=== PATIENT | male | born 1960 | race Caucasian/White ===

== ENCOUNTER → 2016-09-20 | Outpatient (CLI) | payer OTHER ==
--- NOTE | 2016-09-20 09:19 | REP ---
MAXILLOFACIAL CT WITHOUT CONTRAST: HISTORY: Chronic maxillary sinusitis. Minimal mucosal thickening is present in the maxillary, left ethmoid and left sphenoid sinuses. Mild mucosal thickening is present in the right ethmoid sinus. The remaining sinuses are clear. Mucosal thickening involves the ostiomeatal units. The middle and inferior nasal turbinates are partially paradoxical. The right middle nasal turbinate is hypoplastic. There is mild deviation of the nasal septum to the right anteriorly and minimal deviation posteriorly. A spur is present arising from the left side of the nasal septum. The cribriform plate, medial estrada of the orbits and optic canals are intact. There is thickening of the estrada of the sphenoid sinus consistent with chronic sinusitis. The carotid canals form a segment of the posterolateral estrada of the sphenoid sinus. The sphenoid sinus septum inserts into the left internal carotid canal wall. A punctate calcification is present in the right globe adjacent to the right optic nerve. This represents drusen. IMPRESSION: Sinus mucosal thickening as described above. Signed by David Sheikh MD 09/20/2016 09:33 A
== END ==
LOC: M RAD 07:57
PROVIDERS: ATTEND Otolaryngology
DX: J32.0 Chronic maxillary sinusitis (principal)

== ENCOUNTER → 2016-12-11 | Outpatient (REF) | payer OTHER ==
[2016-12-11 12:17] LABS: BASO # 0.1 K/mm3 (0.0-0.2); BASO % 0.6 % (0.0-1.0); EOS # 0.1 K/mm3 (0.0-0.50); EOS % 0.8 % (0.0-3.0); LARGE UNSTAINED CELL # 0.1 K/mm3 (0.0-0.4); LARGE UNSTAINED CELL % 0.7 % (0.0-4.0); LYMPH # 0.9 K/mm3 (1.5-4.5); LYMPH % 6.4 % (24.0-44.0); MEAN CORPUSCULAR HGB CONC 31.8 g/dl (32.0-36.5); MEAN CORPUSCULAR VOLUME 97.4 fl (80.0-96.0); MONO # 0.6 K/mm3 (0.0-0.8); MONO % 4.7 % (0.0-5.0); NEUTROPHILS # 11.2 K/mm3 (1.8-7.7); NEUTROPHILS % 86.8 % (36.0-66.0); PLATELET COUNT, AUTOMATED 345 k/mm3 (150-450); RED CELL DISTRIBUTION WIDTH 14.7 % (11.5-14.5); WHITE BLOOD COUNT 12.9 K/mm3 (4.0-10.0)
[2016-12-11 13:17] LABS: ERYTHROCYTE SEDIMENTATION RATE 3 mm/hr (0-20)
== END ==
LOC: M LABDRAW1 11:53
PROVIDERS: ATTEND Orthopaedic Surgery
DX: R22.32 Localized swelling, mass and lump, left upper limb (principal)

== ENCOUNTER → 2016-12-19 | Outpatient (REF) | payer OTHER | LOC: M SFHCPLAZ 15:23 | PROVIDERS: ATTEND Internal Medicine Infectious Disease | DX: M70.22 Olecranon bursitis, left elbow (principal) ==

== ENCOUNTER → 2016-12-28 | Outpatient (CLI) | payer OTHER ==
--- NOTE | 2016-12-28 12:25 | REP ---
Clinical: Reactive airway disease with acute exacerbation. Technique: PA and lateral. Comparison: 08/24/2015. Findings: Diffuse coarsened interstitial markings are consistent with chronic reactive airway disease and subtle superimposed atelectasis cannot be excluded. No discrete focal consolidation, effusion or pneumothorax. Linear scarring in the left mid lung zone noted. Skeletal structures intact. Mediastinum and cardiac silhouette normal. Impression: Coarsened markings consistent with chronic reactive airway disease. Cannot exclude trace atelectasis. Signed by Damaso Son MD 12/28/2016 12:17 P
== END ==
LOC: M SMT 11:27
PROVIDERS: ATTEND Internal Medicine Pulmonary Disease
DX: J45.51 Severe persistent asthma with (acute) exacerbation (principal)

== ENCOUNTER 2017-04-01 15:13 | Outpatient (RCR) | payer OTHER | END 2017-04-04 | LOC: M CR 15:13 | PROVIDERS: ATTEND Internal Medicine Cardiovascular Disease | DX: Z51.89 Encounter for other specified aftercare (principal); Z95.5 Presence of coronary angioplasty implant and graft; I25.10 Atherosclerotic heart disease of native coronary artery without angina pectoris ==

== ENCOUNTER 2017-04-05 08:46 | Outpatient (RCR) | payer OTHER | END 2017-05-04 | LOC: M CR 08:46 | PROVIDERS: ATTEND Internal Medicine Cardiovascular Disease | DX: Z51.89 Encounter for other specified aftercare (principal); Z95.5 Presence of coronary angioplasty implant and graft; I25.10 Atherosclerotic heart disease of native coronary artery without angina pectoris ==

== ENCOUNTER 2017-05-06 08:16 | Outpatient (RCR) | payer OTHER | END 2017-06-04 | LOC: M CR 08:16 | PROVIDERS: ATTEND Internal Medicine Cardiovascular Disease | DX: Z51.89 Encounter for other specified aftercare (principal); Z95.5 Presence of coronary angioplasty implant and graft; I25.10 Atherosclerotic heart disease of native coronary artery without angina pectoris ==

== ENCOUNTER → 2017-09-25 | Outpatient (REF) | payer OTHER | LOC: M LAB REF 17:01 | DX: J45.50 Severe persistent asthma, uncomplicated (principal) ==

== ENCOUNTER → 2017-10-19 | Outpatient (CLI) | payer OTHER ==
[2017-10-19 09:26] LABS: BLOOD UREA NITROGEN 21 MG/DL (7-18)
[2017-10-19 09:26] LABS: CREATININE FOR GFR 0.92 MG/DL (0.70-1.30); GLOMERULAR FILTRATION RATE > 60.0 (>56)
== END ==
LOC: M LAB 08:55
DX: Z51.81 Encounter for therapeutic drug level monitoring (principal); Z79.52 Long term (current) use of systemic steroids
CPT/HCPCS: 82565

== ENCOUNTER → 2017-12-13 | Outpatient (CLI) | payer OTHER | LOC: M RAD 07:00 | DX: J47.9 Bronchiectasis, uncomplicated (principal) ==

== ENCOUNTER → 2018-01-01 | Outpatient (CLI) | payer OTHER ==
[2018-01-02 14:53] LABS: TESTOSTERONE 635 NG/DL (241-827)
== END ==
LOC: M LAB 15:18
DX: E29.1 Testicular hypofunction (principal)
CPT/HCPCS: 84403

== ENCOUNTER → 2018-01-12 | Outpatient (REF) | payer OTHER | LOC: M LAB REF 09:20 | DX: J45.51 Severe persistent asthma with (acute) exacerbation (principal) ==

== ENCOUNTER → 2018-01-16 | Outpatient (CLI) | payer OTHER | LOC: M RAD 16:48 | DX: S22.000S Wedge compression fracture of unspecified thoracic vertebra, sequela (principal) ==

== ENCOUNTER → 2018-01-22 | Outpatient (CLI) | payer OTHER | LOC: M SMT 14:44 | DX: J45.51 Severe persistent asthma with (acute) exacerbation (principal) | CPT/HCPCS: 71046 ==

== ENCOUNTER → 2018-05-01 | Outpatient (REF) | payer OTHER | LOC: M LAB REF 13:16 | DX: J47.9 Bronchiectasis, uncomplicated (principal) ==

== ENCOUNTER → 2018-06-12 | Outpatient (CLI) | payer OTHER | LOC: M RAD 07:00 | DX: J32.0 Chronic maxillary sinusitis (principal) | CPT/HCPCS: 70486 ==

== ENCOUNTER → 2018-07-19 | Outpatient (REF) | payer OTHER | LOC: M LAB REF 07-16 13:31 | PROVIDERS: ATTEND Internal Medicine Pulmonary Disease | DX: J45.50 Severe persistent asthma, uncomplicated (principal); J47.9 Bronchiectasis, uncomplicated; R05 Cough ==

== ENCOUNTER → 2018-08-07 | Outpatient (REF) | payer OTHER | LOC: M LAB REF 17:42 | PROVIDERS: ATTEND Internal Medicine Pulmonary Disease | DX: R05 Cough (principal) ==

== ENCOUNTER → 2018-11-11 | Outpatient (REF) | payer OTHER | LOC: M LAB REF 17:29 | PROVIDERS: ATTEND Internal Medicine Pulmonary Disease | DX: J45.50 Severe persistent asthma, uncomplicated (principal); J47.9 Bronchiectasis, uncomplicated ==

== ENCOUNTER 2019-07-26 03:00 | Emergency (ER) | payer OTHER ==
[~2019-07-26] VITALS: Ht 185.4 cm; Wt 69.7 kg
[2019-07-26] MEDS ORDERED: SULF1TAB93 PO (03:56)
[2019-07-26] MEDS ORDERED: LEVAINH INH (03:56)
[2019-07-26] MEDS ORDERED: GLIP5TAB8 PO (03:56)
[2019-07-26] MEDS ORDERED: CIAL5TAB PO (03:56)
[2019-07-26] MEDS ORDERED: ATOR40TA75 PO (03:56)
[2019-07-26] MEDS ORDERED: METH4TAB8 PO (03:56)
[2019-07-26] MEDS ORDERED: SYMB16INH INH (03:56)
[2019-07-26] MEDS ORDERED: SING10TA32 PO (03:56)
[2019-07-26] MEDS ORDERED: ASMA220A INH (03:56)
[2019-07-26] MEDS ORDERED: SIMB1SUS OD (03:56)
[2019-07-26] MEDS ORDERED: METF10004 PO (03:56)
[2019-07-26] MEDS ORDERED: ONDANSETRON 4MG/2ML VIAL (J2405) IV ONE (04:15)
[2019-07-26] MEDS: MORPHINE 2 MG/ML 1ML VIAL (J2270) IV PRN ×2 (04:25→04:55)
--- NOTE | 2019-07-26 05:18 | REPVR ---
PROCEDURE INFORMATION: Exam: CT Chest Without Contrast Exam date and time: 07/26/2019 4:41 AM Age: 59 years old Clinical indication: Pain and injury or trauma; Fall; Initial encounter; Blunt trauma (contusions or hematomas); Chest pain and chest wall pain; Additional info: Left chest wall pain after fall TECHNIQUE: Imaging protocol: Computed tomography of the chest without contrast. 3D rendering: MIP and/or 3D reconstructed images were created by the technologist. Radiation optimization: All CT scans at this facility use at least one of these dose optimization techniques: automated exposure control; mA and/or kV adjustment per patient size (includes targeted exams where dose is matched to clinical indication); or iterative reconstruction. COMPARISON: CT Chest without contrast 12/13/2017 7:05 AM FINDINGS: Lungs: Mucoid impaction in the bilateral lung bases. Airspace consolidation in the left lower lobe concerning for pneumonia. Tree in bud opacities in the right lower lobe likely reflecting bronchiolitis. Mild bronchiectasis in the right lower lobe is also noted. Pleural space: Unremarkable. No pneumothorax. No pleural effusion. Heart: Coronary artery stent. Aorta: Mild atherosclerotic disease of the thoracic aorta. Lymph nodes: Unremarkable. No enlarged lymph nodes. Bones/joints: Subacute to chronic fracture deformities of several bilateral anterior ribs. Osteopenia. Stable compression deformity of T7. Soft tissues: Unremarkable. IMPRESSION: No acute fractures. Airspace consolidation in the left lower lobe concerning for pneumonia. Right lower lobe bronchiolitis. Electronically signed by: Man Marie On 07/26/2019 05:17:46 AM
[2019-07-26 06:15] VITALS: BP 137/83
[2019-07-26] MEDS ORDERED: CEFUROXIME 500 MG TAB PO ONE (06:15)
[2019-07-26] MEDS ORDERED: NORCO 5/325MG TABLET (BULK FOR ED) PO ONE (06:15)
[2019-07-26] MEDS ORDERED: CEFU50TA PO (06:23)
--- NOTE | 2019-07-27 08:25 | ECGEPIP ---
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
== END 2019-07-26 06:42 | disposition home or self-care (01) ==
LOC: M ED 03:00
DX: J18.9 Pneumonia, unspecified organism (principal); J21.9 Acute bronchiolitis, unspecified; Z79.84 Long term (current) use of oral hypoglycemic drugs; Z79.899 Other long term (current) drug therapy; Z88.8 Allergy status to other drugs, medicaments and biological substances
CPT/HCPCS: 71250; 93005; 96374; 96375; 99284; J2270; J2405

== ENCOUNTER → 2019-08-03 | Outpatient (CLI) | payer OTHER ==
[~2019-08-03] MED LIST: ASMA220A INH; ATOR40TA75 PO; CEFU50TA PO; CIAL5TAB PO; GLIP5TAB8 PO; LEVAINH INH; METF10004 PO; METH4TAB8 PO; SIMB1SUS OD; SING10TA32 PO; SULF1TAB93 PO; SYMB16INH INH
--- NOTE | 2019-08-03 14:59 | REP ---
Clinical: Asthma with acute exacerbation. Technique: PA and lateral. Comparison: 08/07/2018. Findings: Mediastinum and cardiac silhouette are normal. Bibasilar atelectasis and infiltrates compatible with pneumonia. Small associated pleural reactions cannot be excluded. No pneumothorax. Skeletal structures are intact. Impression: Bibasilar infiltrates compatible with pneumonia and atelectasis. Electronically Signed by Damaso Son MD 08/03/2019 02:50 P
== END ==
LOC: M RAD 14:34
PROVIDERS: ATTEND Physician Assistant
DX: J45.51 Severe persistent asthma with (acute) exacerbation (principal)

== ENCOUNTER → 2019-08-03 | Outpatient (REF) | payer OTHER | LOC: M LAB REF 15:41 | PROVIDERS: ATTEND Physician Assistant | DX: J45.51 Severe persistent asthma with (acute) exacerbation (principal) ==

== ENCOUNTER → 2019-08-18 | Outpatient (CLI) | payer OTHER ==
[~2019-08-18] MED LIST changes: +CEFD1CAP8 PO; +LEVA12INH INH; -SIMB1SUS OD; +SIMB1SUS OU; +TEST30SO3 TD
--- NOTE | 2019-08-18 08:57 | REP ---
Chest x-ray: Two views. History: Pneumonia. Comparison chest x-ray: August 03, 2019. Findings: There is a persistent infiltrate in the right lower lobe distribution consistent with pneumonia. A few increased markings remain in the left lower lobe although there is some improvement here. Remaining lung barba are clear. Heart is not enlarged. Impression: Persistent consolidation in the right lower lobe. Improvement on the left base. Electronically Signed by Crescencio Rucker MD 08/18/2019 01:06 P
== END ==
LOC: M RAD 08:24
PROVIDERS: ATTEND Physician Assistant
DX: J18.9 Pneumonia, unspecified organism (principal)

== ENCOUNTER 2019-08-19 15:53 | Inpatient (IN) | payer OTHER ==
[~2019-08-19] VITALS: Ht 188 cm; Wt 64.5 kg
[~2019-08-19 15:53] MED LIST changes: -CEFD1CAP8 PO; -LEVA12INH INH; -TEST30SO3 TD
[2019-08-19] MEDS ORDERED: CEFD1CAP8 PO (16:13)
[2019-08-19 16:43] LABS: BASO % 0.2 % (0.0-1.0); HEMATOCRIT 45.6 % (42.0-52.0); HEMOGLOBIN 14.4 g/dl (13.5-17.5); LYMPH # 0.7 10^3/uL (1.5-5.0); LYMPH % 7.3 % (24.0-44.0); MEAN CORPUSCULAR HEMOGLOBIN 30.1 pg (27.0-33.0); MEAN CORPUSCULAR HGB CONC 31.6 g/dl (32.0-36.5); MEAN CORPUSCULAR VOLUME 95.4 fl (80.0-96.0); MONO # 0.8 10^3/uL (0.0-0.8); MONO % 8.1 % (0.0-5.0); NEUTROPHILS # 8.5 10^3/uL (1.5-8.5); NEUTROPHILS % 83.7 % (36.0-66.0); PLATELET COUNT, AUTOMATED 335 10^3/uL (150-450); RED BLOOD COUNT 4.78 10^6/uL (4.30-6.10); WHITE BLOOD COUNT 10.2 10^3/uL (4.0-10.0)
[2019-08-19 17:19] LABS: ALBUMIN 2.8 GM/DL (3.2-5.2); ALT/SGPT 27 U/L (12-78); BILIRUBIN,DIRECT 0.3 MG/DL (0.0-0.2); BILIRUBIN,TOTAL 0.7 MG/DL (0.2-1.0); BLOOD UREA NITROGEN 22 MG/DL (7-18); CALCIUM LEVEL 8.6 MG/DL (8.8-10.2); CARBON DIOXIDE LEVEL 23 MEQ/L (21-32); CHLORIDE LEVEL 105 MEQ/L (98-107); CREATININE FOR GFR 0.94 MG/DL (0.70-1.30); GLOMERULAR FILTRATION RATE > 60.0 (>49); GLUCOSE, FASTING 204 MG/DL (70-100); POTASSIUM SERUM 4.7 MEQ/L (3.5-5.1); SODIUM LEVEL 137 MEQ/L (136-145); THYROXINE (T4) 7.5 UG/DL (4.5-12.0); TOTAL PROTEIN 6.1 GM/DL (6.4-8.2)
--- NOTE | 2019-08-19 18:26 | ECGEPIP ---
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
[2019-08-19] MEDS ORDERED: cefTRIAXone SOD 2 GM in D5W MINI-BAG PLUS 50 ML IV ONE (18:30)
--- NOTE | 2019-08-19 19:13 | REPVR ---
PROCEDURE INFORMATION: Exam: CT Chest Without Contrast Exam date and time: 08/19/2019 6:39 PM Age: 59 years old Clinical indication: Other: Pneu; Additional info: Pneumonia TECHNIQUE: Imaging protocol: Computed tomography of the chest without contrast. 3D rendering: MIP and/or 3D reconstructed images were created by the technologist. Radiation optimization: All CT scans at this facility use at least one of these dose optimization techniques: automated exposure control; mA and/or kV adjustment per patient size (includes targeted exams where dose is matched to clinical indication); or iterative reconstruction. COMPARISON: CT Chest without contrast 07/26/2019 4:39 AM FINDINGS: Lungs: Patchy bibasilar infiltrates as well as numerous foci of coarse parenchymal opacities demonstrated in the right middle lobe as well. Findings consistent with multifocal pneumonitis. Infiltrates associated with multiple foci of peripheral airway disease. Infiltrate in the left lower lobe has improved in comparison to the prior study, whereas the infiltrates in the right lower lobe have progressed, and the infiltrates in the right middle lobe are new. Well inflated lungs consistent with COPD. Pleural space: Pleural thickening left lung base. Heart: There is mild atherosclerotic calcification of the coronary arteries. Small pericardial effusion. Aorta: The aorta demonstrates mild atherosclerotic calcification. There is fusiform dilatation of the ascending thoracic aorta which measures 3.9 cm. maximally. There is no saccular component. Lymph nodes: Unremarkable. No enlarged lymph nodes. Bones/joints: Unremarkable. Multiple rib fractures involving the 3rd through 7th ribs on the left with minimal callus formation suggesting subacute fractures. Soft tissues: Unremarkable. IMPRESSION: 1. Patchy bibasilar and right middle lobe infiltrates. Findings consistent with multifocal pneumonitis. Infiltrate in the left lower lobe has improved in comparison to the prior study, whereas infiltrates in the right lower lobe have progressed, and the infiltrates in the right middle lobe are new. 2. There is fusiform dilatation of the ascending thoracic aorta which measures 3.9 cm. maximally. There is no saccular component. 3. Well inflated lungs consistent with COPD. COPD. 4. Subacute fractures involving the 3rd through 7th ribs on the left. Electronically signed by: Gregory Marte On 08/19/2019 19:12:49 PM
[2019-08-19] MEDS ORDERED: TEST30SO3 TD (19:24)
[2019-08-19] MEDS ORDERED: LEVA12INH INH (19:24)
[2019-08-19] MEDS ORDERED: GLUCOSE 4 GM CHEW TABLET PO PRN (20:00)
[2019-08-19] MEDS ORDERED: DEXTROSE 50% 50 ML SYRINGE IV PRN (20:00)
[2019-08-19] MEDS: SYMBICORT 160/4.5MCG INHALER 6GM INH SCH (20:00)
[2019-08-19] MEDS ORDERED: GLUCAGON FOR INJ 1 MG VIAL (J1610) SC PRN (20:00)
[2019-08-19] MEDS: AZITHROMYCIN INJ 500 MG, VIAL MATE ADAPTER 1 EACH in D5W 250 ML IV SCH (20:38)
[2019-08-19] MEDS: NS 1,000 ML IV SCH (20:38)
[2019-08-19] MEDS: LEVALBUTEROL 1.25 MG/0.5 ML CONCENTRATE NEB INH SCH (20:54)
[2019-08-19] MEDS: HumaLOG INSULIN (NovoLOG) PER UNIT SC SCH (21:00)
[2019-08-19 21:10] VITALS: BP 132/76
--- NOTE | 2019-08-19 22:03 | HPEPDOC ---
General Date of Admission Aug 19, 2019 at 19:59 Date of Service: Aug 19, 2019 Chief Complaint The patient is a 59-year-old male Who presented to the emergency room after being advised by his movable bulkhead installer that he would require IV antibiotics History of Present Illness Patient is a 59-year-old male with a PMHx of Asthma, NIDDM2, DLP, Glaucoma who presented to ER at the direction of his movable bulkhead installer for IV antibiotics. Patient had reported that he had fallen on July 26 and presented to the emergency room for further evaluation. At that time he was found to have a left sided pneumonia and was given antibiotics to complete as an outpatient. Subsequent imaging had revealed right-sided pneumonia and patient was given a second course of antibiotics. Sputum culture on 08/03 had revealed the growth of Haemophilus influenza. Patient continue to follow-up with his movable bulkhead installer, Dr. Bolivar and Josue Lucio. Patient received subsequent imaging on 08/18; that showed the persistence of pneumonia. At this point patient was advised to come to the emergency room for IV antibiotic therapy. Patient presented to the emergency room the next evening. Imaging completed in the emergency room via CT chest had revealed improvement of left lower lobe infiltrates progression of right lower lobe infiltrates and new right middle lobe infiltrates. . Hospitalist service was called for further evaluation and treatment. Currently, patient reports he does experience short of breath with exertion. He notes that he does express a mild productive cough with light green sputum; this is been relatively unchanged since July 26. Patient denies any fevers or chills over the last 2 weeks. Patient denies any chest pain or palpitations. Patient denies nausea, vomiting, abdominal pain has reported some constipation/diarrhea alternating, but has reported the use of probiotics to help alleviate the symptoms. Patient denies any discomfort with urination. Patient has reported poor appetite and loss of approximately 6 pounds over the last 3 weeks. Home Medications Scheduled Atorvastatin Calcium (Atorvastatin Calcium) 40 Mg Tablet, 40 MG PO QHS, (Reported) Brinzolamide/Brimonidine Tart (Simbrinza 1%-0.2% Eye Drops) 8 Ml Drops.susp, 1 DROP OU BID, (Reported) Budesonide/Formoterol (Symbicort 160-4.5 Mcg Inhaler) 6 Gm Hfa.aer.ad, 2 PUFF INH BID, (Reported) Cefdinir (Cefdinir) 300 Mg Capsule, 300 MG PO BID, (Reported) FOR 14 DAYS, STARTED 08/18/19 Glipizide (Glipizide) 5 Mg Tablet, 10 MG PO QAM, (Reported) Glipizide (Glipizide) 5 Mg Tablet, 5 MG PO DAILY, (Reported) TAKES AT LUNCHTIME Levalbuterol Hydrochloride (Xopenex Concentrate) 1.25 Mg/0.5 Ml Vial.neb, 1.25 MG INH QID, (Reported) Metformin HCl (Metformin HCl) 1,000 Mg Tablet, 1,000 MG PO BID, (Reported) Methylprednisolone (Methylprednisolone) 4 Mg Tablet, 12 MG PO DAILY, (Reported) Mometasone Furoate (Asmanex) 220 Mcg Aer.pow.ba, 2 PUFF INH BID, (Reported) Montelukast Sodium (Singulair) 10 Mg Tablet, 10 MG PO QHS, (Reported) Sulfamethoxazole/Trimethoprim (Sulfamethoxazole-Tmp Ds Tablet) 1 Each Tablet, 1 TAB PO 3XW, (Reported) MON/WED/FRI Tadalafil (Cialis) 5 Mg Tablet, 5 MG PO QHS, (Reported) Testosterone (Testosterone) 30 Mg/1.5 Ml Melody.md.fruit and vegetable packer, 2 PUMP TD ASDIRECTED, (Reported) APPLY 2 PUMPS TO EACH ARMPIT Allergies Coded Allergies: liraglutide (Verified Allergy, Intermediate, PANCREATITIS, 07/26/19) levofloxacin (Verified Allergy, Mild, TEARS ACILLES, 07/26/19) Past Medical History Medical History Asthma, NIDDM2, DLP, Glaucoma Surgical History Left knee meniscus surgery Cataract surgery Detached retina repair Umbilical hernia repair Family History - Mother with an unknown past medical history - Father alive with a history of diabetes mellitus type 2 Social History - Denies the use of alcohol, tobacco or illicit drugs - Denies recent travel or sick contacts - Lives with in [place] - 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; 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 Review of Systems Other systems 10 point review of systems complete, all negative otherwise stated in HPI Vital Signs - Vitals: BP 132/82, HR 88, RR 18, Sat 95%RA, Temp 97.9F - General: Lying in bed, No acute distress, Speaking in full sentences, AAOx3 - HEENT: NC, AT, PERRLA, EOMI - CVS: RRR, +S1S2 - Lungs: Fair air entry bilaterally, No appreciable wheezing / rales / rhonchi - Abdomen: Soft, Non-distended, Non-tender - Extremities: No lower extremity edema, No calf tenderness - Neuro: No focal motor or sensory deficit - Skin: Left arm and Left leg with bandage in place after his fall on July 26 - follows a Dr. Vital; has advised that bandaging should not be removed Laboratory Data Labs 24H Laboratory Tests 2 08/19/19 16:06: Immature Granulocyte % (Auto) 0.7, Neutrophils (%) (Auto) 83.7H, Lymphocytes (%) (Auto) 7.3L, Monocytes (%) (Auto) 8.1H, Eosinophils (%) (Auto) 0.0, Basophils (%) (Auto) 0.2, Neutrophils # (Auto) 8.5, Lymphocytes # (Auto) 0.7L, Monocytes # (Auto) 0.8, Eosinophils # (Auto) 0.0, Basophils # (Auto) 0.0, Nucleated Red Blood Cells % (auto) 0.0, Anion Gap 9, Glomerular Filtration Rate > 60.0, Lactic Acid Level 2.7*H, Calcium Level 8.6L, Total Bilirubin 0.7, Direct Bilirubin 0.3H, Aspartate Amino Transf (AST/SGOT) 12, Alanine Aminotransferase (ALT/SGPT) 27, Alkaline Phosphatase 116, Total Protein 6.1L, Albumin 2.8L, Albumin/Globulin Ratio 0.85L, Thyroid Stimulating Hormone (TSH) 1.000, Thyroxine (T4) 7.5 08/19/19 21:47: Bedside Glucose (Misc Panel) 179H 08/19/19 21:50: CBC/BMP Laboratory Tests 08/19/19 16:06 Microbiology Microbiology 08/19/19 Respiratory Virus Panel (PCR) (EVELINE) - Final, Complete 08/19/19 Blood Culture, Received Pending 08/19/19 Blood Culture, Received Pending Plan / VTE VTE Prophylaxis Ordered?: Yes Plan Plan Recurrent pneumonia - possibly 2/2 failed outpatient antibiotics, possibly 2/2 aspiration pneumonia - Patient was found to have a pneumonia on July 26 - Has failed outpatient antibiotics - Currently remains hemodynamically stable and afebrile - Mild leukocytosis with neutrophil predominance; mild lactic acidosis is noted - CT chest 1/15: 1. Patchy bibasilar and right middle lobe infiltrates. Findings consistent with multifocal pneumonitis. Infiltrate in the left lower lobe has improved in comparison to the prior study, whereas infiltrates in the right lower lobe have progressed, and the infiltrates in the right middle lobe are new. 2. There is fusiform dilatation of the ascending thoracic aorta which measures 3.9 cm. maximally. There is no saccular component. 3. Well inflated lungs consistent with COPD. COPD. 4. Subacute fractures involving the 3rd through 7th ribs on the left. - Blood cultures and sputum cultures are pending; respiratory panel negative - Will check MRSA screen - Will continue with Zosyn and Azithromycin for broad-spectrum coverage for anaerobic organisms and atypical coverage - Well add incentive spirometry and Acapella - Will add Tylenol for pain relief Subacute fractures involving the 3rd through 7th ribs on the left - Occurred after expressing mechanical fall on July 26 Wounds at Left arm and Left Leg - Patient follows with Dr. Vital - c/w Dressing orders from outpatient setting Asthma - Patient does report short of breath with exertion - Physical currently does not reveal any significant adventitious sounds - Will continue with inhaled therapy as ordered - Continue with home corticosteroid dose; Methylprednisolone 12mg PO; at baseline. Patient uses 8mg NIDDM2 - Will start ISS DLP - c/w Atorvastatin Glaucoma - Continue with home eye drops DVT prophylaxis - Will start SANTA De MD Aug 19, 2019 22:03
[2019-08-19] MEDS: ATORVASTATIN 20 MG TAB PO SCH (22:36)
[2019-08-19] MEDS: MONTELUKAST 10 MG TAB PO SCH (22:36)
[2019-08-19] MEDS: PIPERACILLIN/TAZOBACTAM SOD 3.375 GM in D5W MINI-BAG PLUS 50 ML IV SCH (22:37)
[2019-08-19] MEDS: BRINZOLAMIDE 1 % OPHTH SUSP (AZOPT) 10ML OU SCH (23:51)
[2019-08-20] MEDS: ACETAMINOPHEN TAB 650MG DOSE (2X325MG) PO PRN (00:31)
[2019-08-20] MEDS: LEVALBUTEROL 1.25 MG/0.5 ML CONCENTRATE NEB INH PRN ×2 (00:55→22:31)
[2019-08-20] MEDS: PIPERACILLIN/TAZOBACTAM SOD 3.375 GM in D5W MINI-BAG PLUS 50 ML IV SCH ×4 (03:28→23:03)
[2019-08-20 06:00] VITALS: BP 139/81
[2019-08-20 06:19] LABS: BASO # 0.1 10^3/uL (0.0-0.2); BASO % 0.7 % (0.0-1.0); EOS # 0.2 10^3/uL (0.0-0.5); EOS % 2.5 % (0.0-3.0); HEMATOCRIT 41.4 % (42.0-52.0); HEMOGLOBIN 13.3 g/dl (13.5-17.5); LYMPH # 1.4 10^3/uL (1.5-5.0); LYMPH % 21.6 % (24.0-44.0); MEAN CORPUSCULAR HEMOGLOBIN 30.4 pg (27.0-33.0); MEAN CORPUSCULAR HGB CONC 32.1 g/dl (32.0-36.5); MEAN CORPUSCULAR VOLUME 94.7 fl (80.0-96.0); MONO # 0.8 10^3/uL (0.0-0.8); MONO % 11.8 % (0.0-5.0); NEUTROPHILS # 4.2 10^3/uL (1.5-8.5); NEUTROPHILS % 62.5 % (36.0-66.0); PLATELET COUNT, AUTOMATED 335 10^3/uL (150-450); RED BLOOD COUNT 4.37 10^6/uL (4.30-6.10); WHITE BLOOD COUNT 6.7 10^3/uL (4.0-10.0)
[2019-08-20 06:46] LABS: BLOOD UREA NITROGEN 19 MG/DL (7-18); CARBON DIOXIDE LEVEL 25 MEQ/L (21-32); CHLORIDE LEVEL 111 MEQ/L (98-107); GLOMERULAR FILTRATION RATE > 60.0 (>49); GLUCOSE, FASTING 86 MG/DL (70-100); MAGNESIUM LEVEL 2.1 MG/DL (1.8-2.4); POTASSIUM SERUM 3.6 MEQ/L (3.5-5.1); SODIUM LEVEL 143 MEQ/L (136-145)
[2019-08-20] MEDS: HumaLOG INSULIN (NovoLOG) PER UNIT SC SCH ×4 (07:30→20:36)
[2019-08-20] MEDS: SYMBICORT 160/4.5MCG INHALER 6GM INH SCH ×2 (07:56→20:19)
[2019-08-20] MEDS: LEVALBUTEROL 1.25 MG/0.5 ML CONCENTRATE NEB INH SCH ×4 (07:57→20:00)
[2019-08-20] MEDS: methylPREDNISolone 4 MG TAB PO SCH (08:45)
[2019-08-20] MEDS: ENOXAPARIN 40 MG/0.4 ML SYRINGE (J1650) SC SCH (08:46)
[2019-08-20] MEDS: BRINZOLAMIDE 1 % OPHTH SUSP (AZOPT) 10ML OU SCH ×3 (08:47→20:41)
[2019-08-20] MEDS: NS 1,000 ML IV SCH (12:48)
[2019-08-20] MEDS ORDERED: LEVALBUTEROL 1.25 MG/0.5 ML CONCENTRATE NEB INH PRN (13:45)
[2019-08-20 14:00] VITALS: BP 132/76
[2019-08-20] MEDS: glipiZIDE (GLUCOTROL) 5 MG TAB PO SCH (14:27)
--- NOTE | 2019-08-20 14:56 | IPNPDOC ---
Subjective Date Seen The patient was seen on 08/20/19. Subjective Chief Complaint/HPI Complains of SOB on exertion. Some cough not much phlegm production. DOes say he has chronic sinus infections and blockages. He also does admit that rarely he would chock on some foods but it is much less now as he has adjusted his food types and the way he eats. No fever or chills. Objective Physical Examination General Exam: Positive: Alert, Cooperative, No Acute Distress Eye Exam: Positive: PERRLA, Conjunctiva & lids normal, EOMI; Negative: Sclera icteric ENT Exam: Positive: Atraumatic, Mucous membr. moist/pink, Pharynx Normal Neck Exam: Positive: Supple; Negative: JVD, thyromegaly Chest Exam: Positive: Wheezing (distant wheezing on deep expiration), Diminished (overall diminished breath sounds. ), Other (bilateral crackles at both bases right greater than left with some squeaking sounds on the right. ) Heart Exam: Positive: Rate Normal, Regular Rhythm, Normal S1, Normal S2; Negative: Murmurs, Rubs Abdomen Exam: Positive: Normal bowel sounds, Soft; Negative: Tenderness, Hepatospenomegaly Extremity Exam: Positive: Other (left leg lateral aspect with open wound in dressing. pateint refused to open it as it was changed yesterday in wound clinic next due change is in 1 week. ); Negative: Clubbing, Cyanosis, Edema Neuro Exam: Positive: Normal Gait, Normal Speech, Cranial Nerves 3-12 NL, Reflexes 2+ Psych Exam: Positive: Mood NL, Memory Intact, Oriented x 3 Assessment /Plan Assessment Patient is a 59-year-old male with a PMHx of Chronic Asthma steroid dependent, NIDDM2, DLP, Glaucoma , Left leg chronic wound following with [facility], who presented to ER at the direction of his checkman for IV antibiotics for persistent Pneumonia. Patient had reported that he had fallen on July 26 and presented to the emergency room for further evaluation. At that time he was found to have a left sided pneumonia and was given antibiotics to complete as an outpatient. Subsequent imaging had revealed right-sided pneumonia and patient was given a second course of antibiotics. Sputum culture on 08/03 had revealed the growth of Haemophilus influenza. Patient continued to follow-up with his checkman, Dr. Bolivar and Josue Lucio. Patient received subsequent imaging on 08/18; that showed the persistence of pneumonia. At this point patient was advised to come to the emergency room for IV antibiotic therapy. Patient presented to the emergency room the next evening. Imaging completed in the emergency room via CT chest had revealed improvement of left lower lobe infiltrates progression of right lower lobe infiltrates and new right middle lobe infiltrates. There was also subacute fractures of his left ribs from 3rd to 7th .Hospitalist service was called for further evaluation and treatment. CT chest 08/19: 1. Patchy bibasilar and right middle lobe infiltrates. Findings consistent with multifocal pneumonitis. Infiltrate in the left lower lobe has improved in comparison to the prior study, whereas infiltrates in the right lower lobe have progressed, and the infiltrates in the right middle lobe are new. 2. There is fusiform dilatation of the ascending thoracic aorta which measures 3.9 cm. maximally. There is no saccular component. 3. Well inflated lungs consistent with COPD. 4. Subacute fractures involving the 3rd through 7th ribs on the left. Recurrent pneumonia - possibly 2/2 failed outpatient antibiotics, possibly 2/2 aspiration pneumonia Patient was found to have a pneumonia on July 26 Has failed outpatient antibiotics Blood cultures and sputum cultures are pending; respiratory panel negative Will continue with Zosyn and Azithromycin for broad-spectrum coverage for anaerobic organisms and atypical coverage Well add incentive spirometry and Acapella Left rib fractures sub acute this probably happened during his fall in July CT chest then did not reveal any fractures. pain control with tylenol. This could adding on to his non resolution of pneumonia nd new one on the right says has difficulty coughing due to the pain. Wounds at Left arm and Left Leg Patient follows with Dr. Vital c/w Dressing orders from outpatient setting Chronic Asthma/ COPD Patient does report short of breath with exertion Physical currently does not reveal any significant adventitious sounds Will continue with inhaled therapy as ordered Continue with home corticosteroid dose; Methylprednisolone 12mg PO; at baseline. Patient uses 8mg NIDDM2 continue glipizide and lispro sliding scale DLP Atorvastatin Glaucoma Continue with home eye drops Hiatal hernia continue PPI DVT prophylaxis - Will start Lovenox Plan/VTE VTE Prophylaxis Ordered?: Yes VS, I&O, 24H, Fishbone Vital Signs/I&O Vital Signs Date Time Temp Pulse Resp B/P (MAP) Pulse Ox O2 Delivery O2 Flow Rate FiO2 08/20/19 14:00 97.8 82 19 132/76 (94) 98 Room Air I&O- Last 24 Hours up to 6 AM 08/20/19 06:00 Intake Total 950 ml Output Total 0 ml Balance 950 ml Laboratory Data 24H LABS Laboratory Tests 2 08/19/19 16:06: Immature Granulocyte % (Auto) 0.7, Neutrophils (%) (Auto) 83.7H, Lymphocytes (%) (Auto) 7.3L, Monocytes (%) (Auto) 8.1H, Eosinophils (%) (Auto) 0.0, Basophils (%) (Auto) 0.2, Neutrophils # (Auto) 8.5, Lymphocytes # (Auto) 0.7L, Monocytes # (Auto) 0.8, Eosinophils # (Auto) 0.0, Basophils # (Auto) 0.0, Nucleated Red Blood Cells % (auto) 0.0, Anion Gap 9, Glomerular Filtration Rate > 60.0, Lactic Acid Level 2.7*H, Calcium Level 8.6L, Total Bilirubin 0.7, Direct Bilirubin 0.3H, Aspartate Amino Transf (AST/SGOT) 12, Alanine Aminotransferase (ALT/SGPT) 27, Alkaline Phosphatase 116, Total Protein 6.1L, Albumin 2.8L, Albumin/Globulin Ratio 0.85L, Thyroid Stimulating Hormone (TSH) 1.000, Thyroxine (T4) 7.5 08/19/19 21:47: Bedside Glucose (Misc Panel) 179H 08/19/19 21:50: Lactic Acid Followup at 4 Hours 2.7*H 08/20/19 05:41: Immature Granulocyte % (Auto) 0.9, Neutrophils (%) (Auto) 62.5, Lymphocytes (%) (Auto) 21.6L, Monocytes (%) (Auto) 11.8H, Eosinophils (%) (Auto) 2.5, Basophils (%) (Auto) 0.7, Neutrophils # (Auto) 4.2, Lymphocytes # (Auto) 1.4L, Monocytes # (Auto) 0.8, Eosinophils # (Auto) 0.2, Basophils # (Auto) 0.1, Nucleated Red Bloo d Cells % (auto) 0.0, Anion Gap 7L, Glomerular Filtration Rate > 60.0, Calcium Level 8.0L, Magnesium Level 2.1 08/20/19 11:18: Bedside Glucose (Misc Panel) 170H CBC/BMP Laboratory Tests 08/19/19 16:06 08/20/19 05:41 Microbiology Microbiology 08/19/19 Respiratory Virus Panel (PCR) (EVELINE) - Final, Complete 08/19/19 Blood Culture, Received Pending 08/19/19 Blood Culture, Received Pending TRAVIS BEASLEY MD Aug 20, 2019 14:28
[2019-08-20] MEDS: LACTOBACILLUS ACIDOPHILUS CAP (BACID) PO SCH (17:16)
[2019-08-20] MEDS: ATORVASTATIN 20 MG TAB PO SCH (20:41)
[2019-08-20] MEDS: MONTELUKAST 10 MG TAB PO SCH (20:41)
[2019-08-20] MEDS: AZITHROMYCIN INJ 500 MG, VIAL MATE ADAPTER 1 EACH in D5W 250 ML IV SCH (20:41)
[2019-08-20 22:00] VITALS: BP 142/82
[2019-08-21] MEDS: PIPERACILLIN/TAZOBACTAM SOD 3.375 GM in D5W MINI-BAG PLUS 50 ML IV SCH ×4 (03:09→21:05)
[2019-08-21 06:00] VITALS: BP 130/87
[2019-08-21 06:08] LABS: BASO # 0.1 10^3/uL (0.0-0.2); BASO % 0.5 % (0.0-1.0); EOS # 0.1 10^3/uL (0.0-0.5); EOS % 1.4 % (0.0-3.0); HEMATOCRIT 43.2 % (42.0-52.0); HEMOGLOBIN 13.5 g/dl (13.5-17.5); LYMPH # 1.5 10^3/uL (1.5-5.0); LYMPH % 16.3 % (24.0-44.0); MEAN CORPUSCULAR HEMOGLOBIN 30.1 pg (27.0-33.0); MEAN CORPUSCULAR HGB CONC 31.3 g/dl (32.0-36.5); MEAN CORPUSCULAR VOLUME 96.4 fl (80.0-96.0); MONO % 10.3 % (0.0-5.0); NEUTROPHILS # 6.5 10^3/uL (1.5-8.5); NEUTROPHILS % 70.7 % (36.0-66.0); PLATELET COUNT, AUTOMATED 305 10^3/uL (150-450); RED BLOOD COUNT 4.48 10^6/uL (4.30-6.10); WHITE BLOOD COUNT 9.2 10^3/uL (4.0-10.0)
[2019-08-21 06:26] LABS: BLOOD UREA NITROGEN 14 MG/DL (7-18); CALCIUM LEVEL 8.2 MG/DL (8.8-10.2); CARBON DIOXIDE LEVEL 29 MEQ/L (21-32); CHLORIDE LEVEL 108 MEQ/L (98-107); CREATININE FOR GFR 0.87 MG/DL (0.70-1.30); GLOMERULAR FILTRATION RATE > 60.0 (>49); GLUCOSE, FASTING 108 MG/DL (70-100); MAGNESIUM LEVEL 1.9 MG/DL (1.8-2.4); POTASSIUM SERUM 3.6 MEQ/L (3.5-5.1); SODIUM LEVEL 143 MEQ/L (136-145)
[2019-08-21] MEDS: SYMBICORT 160/4.5MCG INHALER 6GM INH SCH ×2 (07:30→19:37)
[2019-08-21] MEDS: LEVALBUTEROL 1.25 MG/0.5 ML CONCENTRATE NEB INH SCH ×4 (07:30→19:38)
[2019-08-21] MEDS: LACTOBACILLUS ACIDOPHILUS CAP (BACID) PO SCH ×3 (08:28→17:56)
[2019-08-21] MEDS: methylPREDNISolone 4 MG TAB PO SCH (08:28)
[2019-08-21] MEDS: BRINZOLAMIDE 1 % OPHTH SUSP (AZOPT) 10ML OU SCH ×3 (08:29→21:06)
[2019-08-21] MEDS: HumaLOG INSULIN (NovoLOG) PER UNIT SC SCH ×4 (08:30→21:05)
[2019-08-21] MEDS: ENOXAPARIN 40 MG/0.4 ML SYRINGE (J1650) SC SCH (08:30)
[2019-08-21] MEDS ORDERED: BACTRIM 160MG/800MG DS TAB PO SCH (09:00)
[2019-08-21] MEDS ORDERED: VARIBAR PUDDING 40% w/v 230ML TUBE As Ordered ONE (12:34)
[2019-08-21] MEDS ORDERED: E-Z-PAQUE 96% w/w SUSP 176GM BTL As Ordered ONE (12:34)
[2019-08-21] MEDS ORDERED: BARIUM SULFATE 700 MG TABLET (E-Z-DISK) As Ordered ONE (12:35)
[2019-08-21] MEDS: VITAMIN D 1,000 INTERNATIONAL UNITS TABLET PO SCH (12:59)
[2019-08-21] MEDS: glipiZIDE (GLUCOTROL) 5 MG TAB PO SCH (13:00)
[2019-08-21] MEDS ORDERED: VARIBAR NECTAR 40% w/v 240ML SUSP BTL As Ordered ONE ×2 (13:02→13:22)
[2019-08-21 14:00] VITALS: BP 129/84
--- NOTE | 2019-08-21 21:00 | REP ---
COOKIE SWALLOW The procedure was performed under the direct supervision of Dr. Rucker. The procedure was performed with Janki Schumacher from speech pathology present. 5 ml aliquots of thin, pudding, mixed fruit, soft and solid consistency barium was administered. With thin consistency barium there is aspiration. The detailed report of this examination will be provided by speech pathology. 0.9 minutes of fluoroscopy time was utilized for this procedure. Electronically Signed by JEANETTE Menard 08/21/2019 03:31 P Electronically Signed by Crescencio Rucker MD 08/21/2019 08:43 P
[2019-08-21] MEDS: ATORVASTATIN 20 MG TAB PO SCH (21:04)
[2019-08-21] MEDS: MONTELUKAST 10 MG TAB PO SCH (21:04)
[2019-08-21] MEDS: AZITHROMYCIN 250 MG TAB PO SCH (21:04)
[2019-08-21 22:00] VITALS: BP 129/74
[2019-08-21] MEDS: ACETAMINOPHEN TAB 650MG DOSE (2X325MG) PO PRN (22:27)
[2019-08-21] MEDS: LEVALBUTEROL 1.25 MG/0.5 ML CONCENTRATE NEB INH PRN (22:36)
[2019-08-22] MEDS: PIPERACILLIN/TAZOBACTAM SOD 3.375 GM in D5W MINI-BAG PLUS 50 ML IV SCH ×2 (03:46→08:27)
[2019-08-22 06:00] VITALS: BP 138/82
[2019-08-22 06:11] LABS: BASO # 0.1 10^3/uL (0.0-0.2); BASO % 0.9 % (0.0-1.0); EOS # 0.2 10^3/uL (0.0-0.5); EOS % 2.2 % (0.0-3.0); HEMATOCRIT 41.7 % (42.0-52.0); HEMOGLOBIN 13.5 g/dl (13.5-17.5); LYMPH # 1.5 10^3/uL (1.5-5.0); LYMPH % 18.6 % (24.0-44.0); MEAN CORPUSCULAR HEMOGLOBIN 30.6 pg (27.0-33.0); MEAN CORPUSCULAR HGB CONC 32.4 g/dl (32.0-36.5); MEAN CORPUSCULAR VOLUME 94.6 fl (80.0-96.0); MONO # 0.9 10^3/uL (0.0-0.8); MONO % 10.9 % (0.0-5.0); NEUTROPHILS # 5.3 10^3/uL (1.5-8.5); NEUTROPHILS % 66.7 % (36.0-66.0); PLATELET COUNT, AUTOMATED 298 10^3/uL (150-450); RED BLOOD COUNT 4.41 10^6/uL (4.30-6.10)
[2019-08-22 06:38] LABS: BLOOD UREA NITROGEN 15 MG/DL (7-18); CARBON DIOXIDE LEVEL 26 MEQ/L (21-32); CHLORIDE LEVEL 108 MEQ/L (98-107); CREATININE FOR GFR 0.79 MG/DL (0.70-1.30); GLOMERULAR FILTRATION RATE > 60.0 (>49); GLUCOSE, FASTING 138 MG/DL (70-100); POTASSIUM SERUM 3.8 MEQ/L (3.5-5.1); SODIUM LEVEL 140 MEQ/L (136-145)
[2019-08-22 06:39] LABS: CALCIUM LEVEL 8.6 MG/DL (8.8-10.2); MAGNESIUM LEVEL 2.2 MG/DL (1.8-2.4)
[2019-08-22] MEDS: SYMBICORT 160/4.5MCG INHALER 6GM INH SCH ×2 (07:17→20:00)
[2019-08-22] MEDS: LEVALBUTEROL 1.25 MG/0.5 ML CONCENTRATE NEB INH SCH ×4 (07:17→21:06)
[2019-08-22] MEDS: ENOXAPARIN 40 MG/0.4 ML SYRINGE (J1650) SC SCH (08:23)
[2019-08-22] MEDS: BRINZOLAMIDE 1 % OPHTH SUSP (AZOPT) 10ML OU SCH ×3 (08:26→22:16)
[2019-08-22] MEDS: methylPREDNISolone 4 MG TAB PO SCH (08:26)
[2019-08-22] MEDS: LACTOBACILLUS ACIDOPHILUS CAP (BACID) PO SCH ×3 (08:26→17:35)
[2019-08-22] MEDS: VITAMIN D 1,000 INTERNATIONAL UNITS TABLET PO SCH (08:26)
[2019-08-22] MEDS: HumaLOG INSULIN (NovoLOG) PER UNIT SC SCH ×4 (08:27→21:00)
--- NOTE | 2019-08-22 09:07 | IPNPDOC ---
Subjective Date Seen The patient was seen on 08/22/19. Subjective Chief Complaint/HPI No new complaints. Swallow evaluation inconsistent aspiration of thin liquids. No fever or chills, SOB getting better. Objective Physical Examination General Exam: Positive: Alert, Cooperative, No Acute Distress Eye Exam: Positive: PERRLA, Conjunctiva & lids normal, EOMI; Negative: Sclera icteric ENT Exam: Positive: Atraumatic, Mucous membr. moist/pink, Pharynx Normal Neck Exam: Positive: Supple; Negative: JVD, thyromegaly Chest Exam: Positive: Wheezing (distant wheezing on deep expiration), Diminished (overall diminished breath sounds. ), Other (bilateral crackles at both bases right greater than left with some squeaking sounds on the right. ) Heart Exam: Positive: Rate Normal, Regular Rhythm, Normal S1, Normal S2; Negative: Murmurs, Rubs Abdomen Exam: Positive: Normal bowel sounds, Soft; Negative: Tenderness, Hepatospenomegaly Extremity Exam: Positive: Other (left leg lateral aspect with open wound in dressing. pateint refused to open it as it was changed yesterday in wound clinic next due change is in 1 week. ); Negative: Clubbing, Cyanosis, Edema Neuro Exam: Positive: Normal Gait, Normal Speech, Cranial Nerves 3-12 NL, Reflexes 2+ Psych Exam: Positive: Mood NL, Memory Intact, Oriented x 3 Assessment /Plan Assessment Patient is a 59-year-old male with a PMHx of Chronic Asthma steroid dependent, NIDDM2, DLP, Glaucoma , Left leg chronic wound following with [facility], who presented to ER at the direction of his case operator for IV antibiotics for persistent Pneumonia. Patient had reported that he had fallen on July 26 and presented to the emergency room for further evaluation. At that time he was found to have a left sided pneumonia and was given antibiotics to complete as an outpatient. Subsequent imaging had revealed right-sided pneumonia and patient was given a second course of antibiotics. Sputum culture on 08/03 had revealed the growth of Haemophilus influenza. Patient continued to follow-up with his case operator, Dr. Bolivar and Josue Lucio. Patient received subsequent imaging on 08/18; that showed the persistence of pneumonia. At this point patient was advised to come to the emergency room for I V antibiotic therapy. Patient presented to the emergency room the next evening. Imaging completed in the emergency room via CT chest had revealed improvement of left lower lobe infiltrates progression of right lower lobe infiltrates and new right middle lobe infiltrates. There was also subacute fractures of his left ribs from 3rd to 7th .Hospitalist service was called for further evaluation and treatment. CT chest 08/19: 1. Patchy bibasilar and right middle lobe infiltrates. Findings consistent with multifocal pneumonitis. Infiltrate in the left lower lobe has improved in comparison to the prior study, whereas infiltrates in the right lower lobe have progressed, and the infiltrates in the right middle lobe are new. 2. There is fusiform dilatation of the ascending thoracic aorta which measu res 3.9 cm. maximally. There is no saccular component. 3. Well inflated lungs consistent with COPD. 4. Subacute fractures involving the 3rd through 7th ribs on the left. Recurrent pneumonia - possibly 2/2 failed outpatient antibiotics, possibly 2/2 aspiration pneumonia Patient was found to have a pneumonia on July 26 Has failed outpatient antibiotics Blood cultures negative till date. sputum cultures from 08/19 Hemophilus influenzae. respiratory panel negative Will continue with Zosyn and Azithromycin for broad-spectrum coverage for anaerobic organisms and atypical coverage Well add incentive spirometry and Acapella Intermittent rare aspirations to thin liquids. will follow speech therapy reccomendations Referral to GI as outpatient. will repeat CT tomorrow. Left rib fractures sub acute this probably happened during his fall in July CT chest then did not reveal any fractures. pain control with tylenol. This could adding on to his non resolution of pneumonia nd new one on the right says has difficulty coughing due to the pain. Wounds at Left arm and Left Leg Patient follows with Dr. Vital c/w Dressing orders from outpatient setting Chronic Asthma/ COPD Patient does report short of breath with exertion Physical currently does not reveal any significant adventitious sounds Will continue with inhaled therapy as ordered Continue with home corticosteroid dose; Methylprednisolone 12mg PO; at baseline. Patient uses 8mg NIDDM2 continue glipizide and lispro sliding scale DLP Atorvastatin Glaucoma Continue with home eye drops Hiatal hernia continue PPI DVT prophylaxis refused lovenox. Plan/VTE VTE Prophylaxis Ordered?: Yes VS, I&O, 24H, Fishbone Vital Signs/I&O Vital Signs Date Time Temp Pulse Resp B/P (MAP) Pulse Ox O2 Delivery O2 Flow Rate FiO2 08/22/19 06:00 97.9 72 18 138/82 (100) 98 Room Air I&O- Last 24 Hours up to 6 AM 08/22/19 06:00 Intake Total 820 ml Output Total 3400 ml Balance -2580 ml Laboratory Data 24H LABS Laboratory Tests 2 08/21/19 11:31: Bedside Glucose (Misc Panel) 176H 08/21/19 16:44: Bedside Glucose (Misc Panel) 270H 08/21/19 20:10: Bedside Glucose (Misc Panel) 252H 08/22/19 05:50: Immature Granulocyte % (Auto) 0.7, Neutrophils (%) (Auto) 66.7H, Lymphocytes (%) (Auto) 18.6L, Monocytes (%) (Auto) 10.9H, Eosinophils (%) (Auto) 2.2, Basophils (%) (Auto) 0.9, Neutrophils # (Auto) 5.3, Lymphocytes # (Auto) 1.5, Monocytes # (Auto) 0.9H, Eosinophils # (Auto) 0.2, Basophils # (Auto) 0.1, Nucleated Red Blood Cells % (auto) 0.0, Anion Gap 6L, Glomerular Filtration Rate > 60.0, Calcium Level 8.6L, Magnesium Level 2.2 CBC/BMP Laboratory Tests 08/22/19 05:50 Microbiology Microbiology 08/19/19 Respiratory Virus Panel (PCR) (EVELINE) - Final, Complete 08/19/19 Blood Culture - Preliminary, Resulted No Growth after 48 hours. All Specime... 08/19/19 Blood Culture - Preliminary, Resulted No Growth after 48 hours. All Specime... TRAVIS BEASLEY MD Aug 22, 2019 09:07
[2019-08-22] MEDS: LEVALBUTEROL 1.25 MG/0.5 ML CONCENTRATE NEB INH PRN ×2 (09:30→15:30)
[2019-08-22] MEDS: glipiZIDE (GLUCOTROL) 5 MG TAB PO SCH (12:21)
[2019-08-22 14:00] VITALS: BP 122/85
[2019-08-22 22:00] VITALS: BP 115/78
[2019-08-22] MEDS: AZITHROMYCIN 250 MG TAB PO SCH (22:15)
[2019-08-22] MEDS: ATORVASTATIN 20 MG TAB PO SCH (22:16)
[2019-08-22] MEDS: MONTELUKAST 10 MG TAB PO SCH (22:16)
[2019-08-23 06:00] VITALS: BP 118/84
[2019-08-23 06:21] LABS: BASO # 0.1 10^3/uL (0.0-0.2); BASO % 0.6 % (0.0-1.0); EOS # 0.2 10^3/uL (0.0-0.5); EOS % 2.2 % (0.0-3.0); HEMATOCRIT 42.2 % (42.0-52.0); HEMOGLOBIN 13.5 g/dl (13.5-17.5); LYMPH # 1.9 10^3/uL (1.5-5.0); LYMPH % 23.9 % (24.0-44.0); MEAN CORPUSCULAR HEMOGLOBIN 30.4 pg (27.0-33.0); MONO # 0.8 10^3/uL (0.0-0.8); MONO % 10.3 % (0.0-5.0); NEUTROPHILS # 4.8 10^3/uL (1.5-8.5); NEUTROPHILS % 62.1 % (36.0-66.0); PLATELET COUNT, AUTOMATED 305 10^3/uL (150-450); RED BLOOD COUNT 4.44 10^6/uL (4.30-6.10); WHITE BLOOD COUNT 7.8 10^3/uL (4.0-10.0)
[2019-08-23 06:43] LABS: BLOOD UREA NITROGEN 17 MG/DL (7-18); CALCIUM LEVEL 8.7 MG/DL (8.8-10.2); CARBON DIOXIDE LEVEL 27 MEQ/L (21-32); CHLORIDE LEVEL 108 MEQ/L (98-107); CREATININE FOR GFR 0.81 MG/DL (0.70-1.30); GLOMERULAR FILTRATION RATE > 60.0 (>49); GLUCOSE, FASTING 135 MG/DL (70-100); MAGNESIUM LEVEL 1.9 MG/DL (1.8-2.4); POTASSIUM SERUM 3.8 MEQ/L (3.5-5.1); SODIUM LEVEL 141 MEQ/L (136-145)
[2019-08-23] MEDS: methylPREDNISolone 4 MG TAB PO SCH (07:38)
[2019-08-23] MEDS: BRINZOLAMIDE 1 % OPHTH SUSP (AZOPT) 10ML OU SCH (07:38)
[2019-08-23] MEDS: LACTOBACILLUS ACIDOPHILUS CAP (BACID) PO SCH ×2 (07:38→12:56)
[2019-08-23] MEDS: ENOXAPARIN 40 MG/0.4 ML SYRINGE (J1650) SC SCH (07:38)
[2019-08-23] MEDS: HumaLOG INSULIN (NovoLOG) PER UNIT SC SCH ×2 (07:38→12:56)
[2019-08-23] MEDS: VITAMIN D 1,000 INTERNATIONAL UNITS TABLET PO SCH (07:38)
[2019-08-23] MEDS: LEVALBUTEROL 1.25 MG/0.5 ML CONCENTRATE NEB INH SCH ×2 (08:00→10:27)
[2019-08-23] MEDS: SYMBICORT 160/4.5MCG INHALER 6GM INH SCH (08:11)
[2019-08-23] MEDS ORDERED: CEFD1CAP8 PO (08:44)
--- NOTE | 2019-08-23 09:44 | REP ---
CT CHEST WITHOUT CONTRAST: HISTORY: Followup multifocal pneumonia. Comparison CT study, August 19, 2019. CT FINDINGS: Healing left-sided rib fractures are noted involving rib numbers 3 through rib number 9. There is mild old-appearing wedging at the T7 vertebral body, unchanged. No bony destructive lesion is seen. There is a mild pattern of diffuse bronchial wall thickening, question bronchitis. There is persistent patchy interstitial infiltrate in the lower lobes bilaterally and in the right middle lobe. This is quite similar to the August 19, 2019 study. There are scattered areas of inspissated endobronchial secretions in the left lower lobe and right lower lobe centrally. No new infiltrate is seen. There is no evidence of hilar or mediastinal mass or adenopathy. There is coronary artery vascular calcification on the left. Visualized upper abdominal structures are unremarkable. IMPRESSION: Persistent bibasilar peribronchovascular infiltrates. Bronchitis pattern with inspissated secretions and diffuse bronchial wall thickening, mild in degree. No new infiltrate. Multiple healing left-sided rib fractures. Mild wedge compression deformity at T7, unchanged. Electronically Signed by Crescencio Rucker MD 08/23/2019 09:56 A
[2019-08-23] MEDS: LEVALBUTEROL 1.25 MG/0.5 ML CONCENTRATE NEB INH PRN (12:51)
[2019-08-23] MEDS: glipiZIDE (GLUCOTROL) 5 MG TAB PO SCH (12:56)
--- NOTE | 2019-08-27 21:40 | DS.PDOC ---
Discharge Summary General Date of Admission Aug 19, 2019 at 19:59 Date of Discharge 08/23/19 Discharge Summary PROCEDURES PERFORMED DURING STAY: [None]. DISCHARGE DIAGNOSES: Recurrent pneumonia possibly aspiration Sub acute left rib fractures from 3rd to 7th ribs [id number] compression fracture wound of left leg and left arm status post fall in [id number] SECONDARY DIAGNOSIS: Chronic Asthma steroid dependent, NIDDM2, DLP, Glaucoma, hiatal hernia COMPLICATIONS/CHIEF COMPLAINT: Pneumonia. HISTORY OF PRESENT ILLNESS: See History and physical HOSPITAL COURSE: Patient is a 59-year-old male with a PMHx of Chronic Asthma steroid dependent, NIDDM2, DLP, Glaucoma , Left leg chronic wound following with Amanuel, who presented to ER at the direction of his shopper's aide for IV antibiotics for persistent Pneumonia. Patient had reported that he had fallen on July 26 and presented to the emergency room for fur ther evaluation. At that time he was found to have a left sided pneumonia and was given antibiotics to complete as an outpatient. Subsequent imaging had revealed right-sided pneumonia and patient was given a second course of antibiotics. Sputum culture on 08/03 had revealed the growth of Haemophilus influenza. Patient continued to follow-up with his shopper's aide, Dr. Bolivar and Josue Lucio. Patient received subsequent imaging on 08/18; that showed the persistence of pneumonia. At this point patient was advised to come to the emergency room for IV antibiotic therapy. Patient presented to the emergency room the next evening. Imaging completed in the emergency room via CT chest had revealed improvement of left lower lobe infiltrates progression of right lower lobe infiltrates and new right middle lobe infiltrates. There was also subacute fractures of his left ribs from 3rd to 7th .Hospitalist service was called for further evaluation and treatment. CT chest 08/19: 1. Patchy bibasilar and right middle lobe infiltrates. Findings consistent with multifocal pneumonitis. Infiltrate in the left lower lobe has improved in comparison to the prior study, whereas infiltrates in the right lower lobe have progressed, and the infiltrates in the right middle lobe are new. 2. There is fusiform dilatation of the ascending thoracic aorta which measures 3.9 cm. maximally. There is no saccular component. 3. Well inflated lungs consistent with COPD. 4. Subacute fractures involving the 3rd through 7th ribs on the left. Recurrent pneumonia - possibly 2/2 failed outpatient antibiotics, possibly 2/2 aspiration pneumonia Patient was found to have a pneumonia on July 26 Has failed outpatient antibiotics sputum cultures from 08/19 Hemophilus influenzae. respiratory panel negative, blood cultures negative received 5 days of Zosyn and Azithromycin incentive spirometry and Acapella as outpateint. Repeat CT chest with bilateral basilar infiltrates with inspisated secretions, bronchitis Dysphagia swallow evaluation shows Intermittent rare aspirations to thin liquids. will follow speech therapy reccomendations Referral to GI as outpatient. Left rib fractures sub acute this probably happened during his fall in July CT chest then did not reveal any fractures. pain control with tylenol. This could adding on to his non resolution of pneumonia nd new one on the right says has difficulty coughing due to the pain. Wounds at Left arm and Left Leg Patient follows with Dr. Vital c/w Dressing orders from outpatient setting Chronic Asthma/ COPD Patient does report short of breath with exertion Physical currently does not reveal any significant adventitious sounds Will continue with inhaled therapy as ordered Continue with home corticosteroid dose; Methylprednisolone 12mg PO; at baseline. Patient uses 8mg NIDDM2 continue glipizide and lispro sliding scale DLP Atorvastatin Glaucoma Continue with home eye drops Hiatal hernia continue PPI DISCHARGE MEDICATIONS: Please see below. ALLERGIES: Please see below. PHYSICAL EXAMINATION ON DISCHARGE: VITAL SIGNS: Please see below. General Exam: Positive: Alert, Cooperative, No Acute Distress Eye Exam: Positive: PERRLA, Conjunctiva & lids normal, EOMI; Negative: Sclera icteric ENT Exam: Positive: Atraumatic, Mucous membr. moist/pink, Pharynx Normal Neck Exam: Positive: Supple; Negative: JVD, thyromegaly Chest Exam: Positive: Wheezing (distant wheezing on deep expiration), Diminished (overall diminished breath sounds. ), Other (bilateral crackles at both bases right greater than left with some squeaking sounds on the right. ) Heart Exam: Positive: Rate Normal, Regular Rhythm, Normal S1, Normal S2; Negative: Murmurs, Rubs Abdomen Exam: Positive: Normal bowel sounds, Soft; Negative: Tenderness, Hepatospenomegaly Extremity Exam: Positive: Other (left leg lateral aspect with open wound in dressing. pateint refused to open it as it was changed yesterday in wound clinic next due change is in 1 week. ); Negative: Clubbing, Cyanosis, Edema Neuro Exam: Positive: Normal Gait, Normal Speech, Cranial Nerves 3-12 NL, Reflexes 2+ Psych Exam: Positive: Mood NL, Memory Intact, Oriented x 3 LABORATORY DATA: Please see below. IMAGIN/19 CT chest: Persistent bibasilar peribronchovascular infiltrates. Bronchitis pattern with inspissated secretions and diffuse bronchial wall thickening, mild in degree. No new infiltrate. Multiple healing left-sided rib fractures. Mild wedge compression deformity at T7, unchanged. ACTIVITY: [As tolerated]. DIET: As tolerated as per speech therapist DISPOSITION: 01 Home, Self-Care. DISCHARGE INSTRUCTIONS: Follow up with pulmonology in 2 weeks, Follow up PMD in 1 week DISCHARGE CONDITION: [Stable]. TIME SPENT ON DISCHARGE: 35 minutes. Vital Signs/I&Os Vital Signs Date Time Temp Pulse Resp B/P (MAP) Pulse Ox O2 Delivery O2 Flow Rate FiO2 08/23/19 06:00 98.3 92 18 118/84 (95) 95 Room Air Laboratory Data CBC/BMP Item Value Date Time White Blood Count 7.8 10^3/uL 08/23/19 0559 Red Blood Count 4.44 10^6/uL 08/23/19 0559 Hemoglobin 13.5 g/dl 08/23/19 0559 Hematocrit 42.2 % 08/23/19 0559 Mean Corpuscular Volume 95.0 fl 08/23/19 0559 Mean Corpuscular Hemoglobin 30.4 pg 08/23/19 0559 Mean Corpuscular Hemoglobin Concent 32.0 g/dl 08/23/19 0559 Red Cell Distribution Width 15.5 % H 08/23/19 0559 Platelet Count 305 10^3/uL 08/23/19 0559 Neutrophils (%) (Auto) 62.1 % 08/23/19 0559 Immature Granulocyte % (Auto) 0.9 % 08/23/19 0559 Lymphocytes (%) (Auto) 23.9 % L 08/23/19 0559 Monocytes (%) (Auto) 10.3 % H 08/23/19 0559 Eosinophils (%) (Auto) 2.2 % 08/23/19 0559 Basophils (%) (Auto) 0.6 % 08/23/19 0559 Neutrophils # (Auto) 4.8 10^3/uL 08/23/19 0559 Lymphocytes # (Auto) 1.9 10^3/uL 08/23/19 0559 Monocytes # (Auto) 0.8 10^3/uL 08/23/19 0559 Eosinophils # (Auto) 0.2 10^3/uL 08/23/19 0559 Basophils # (Auto) 0.1 10^3/uL 08/23/19 0559 Nucleated Red Blood Cells % (auto) 0.0 % 08/23/19 0559 Creatinine 0.81 MG/DL 08/23/19 0559 Sodium Level 141 MEQ/L 08/23/19 0559 Potassium Level 3.8 MEQ/L 08/23/19 0559 Chloride Level 108 MEQ/L H 08/23/19 0559 Carbon Dioxide Level 27 MEQ/L 08/23/19 0559 Blood Urea Nitrogen 17 MG/DL 08/23/19 0559 Anion Gap 6 MEQ/L L 08/23/19 0559 Fasting Glucose 135 MG/DL H 08/23/19 0559 Glomerular Filtration Rate > 60.0 08/23/19 0559 Calcium Level 8.7 MG/DL L 08/23/19 0559 Magnesium Level 1.9 MG/DL 08/23/19 0559 Microbiology Microbiology 08/19/19 Respiratory Virus Panel (PCR) (EVELINE) - Final, Complete 08/19/19 Blood Culture - Final, Complete NO GROWTH AFTER 5 DAYS 08/19/19 Blood Culture - Final, Complete NO GROWTH AFTER 5 DAYS Discharge Medications Scheduled Atorvastatin Calcium (Atorvastatin Calcium) 40 Mg Tablet, 40 MG PO QHS, (Reported) Brinzolamide/Brimonidine Tart (Simbrinza 1%-0.2% Eye Drops) 8 Ml Drops.susp, 1 DROP OU BID, (Reported) Budesonide/Formoterol (Symbicort 160-4.5 Mcg Inhaler) 6 Gm Hfa.aer.ad, 2 PUFF INH BID, (Reported) Cefdinir (Cefdinir) 300 Mg Capsule, 300 MG PO BID FOR 7 DAYS, STARTED 08/23/19 Glipizide (Glipizide) 5 Mg Tablet, 10 MG PO QAM, (Reported) Glipizide (Glipizide) 5 Mg Tablet, 5 MG PO DAILY, (Reported) TAKES AT LUNCHTIME Levalbuterol Hydrochloride (Xopenex Concentrate) 1.25 Mg/0.5 Ml Vial.neb, 1.25 MG INH QID, (Reported) Metformin HCl (Metformin HCl) 1,000 Mg Tablet, 1,000 MG PO BID, (Reported) Methylprednisolone (Methylprednisolone) 4 Mg Tablet, 12 MG PO DAILY, (Reported) Mometasone Furoate (Asmanex) 220 Mcg Aer.pow.ba, 2 PUFF INH BID, (Reported) Montelukast Sodium (Singulair) 10 Mg Tablet, 10 MG PO QHS, (Reported) Sulfamethoxazole/Trimethoprim (Sulfamethoxazole-Tmp Ds Tablet) 1 Each Tablet, 1 TAB PO 3XW, (Reported) SAT/SAT/FRI Tadalafil (Cialis) 5 Mg Tablet, 5 MG PO QHS, (Reported) Testosterone (Testosterone) 30 Mg/1.5 Ml Melody..mortician investigator, 2 PUMP TD ASDIRECTED, (Reported) APPLY 2 PUMPS TO EACH ARMPIT Allergies Coded Allergies: liraglutide (Verified Allergy, Intermediate, PANCREATITIS, 07/26/19) levofloxacin (Verified Allergy, Mild, TEARS ACILLES, 07/26/19) TRAVIS BEASLEY MD Aug 27, 2019 21:40
== END 2019-08-23 13:09 | disposition home or self-care (01) | DRG 178 ==
LOC: M ED 15:53 → M ED INP 19:59 → ENRESERV 20:21 → M MSPAV 21:09
PROVIDERS: ADMIT Internal Medicine; ATTEND Internal Medicine Nephrology
DX: J69.0 Pneumonitis due to inhalation of food and vomit (principal); S22.42XA Multiple fractures of ribs, left side, initial encounter for closed fracture; L98.499 Non-pressure chronic ulcer of skin of other sites with unspecified severity; J45.909 Unspecified asthma, uncomplicated; Z79.52 Long term (current) use of systemic steroids; E11.9 Type 2 diabetes mellitus without complications; K44.9 Diaphragmatic hernia without obstruction or gangrene; H40.9 Unspecified glaucoma; R13.10 Dysphagia, unspecified; W18.30XA Fall on same level, unspecified, initial encounter; Y92.009 Unspecified place in unspecified non-institutional (private) residence as the place of occurrence of the external cause; Z79.899 Other long term (current) drug therapy; Z88.8 Allergy status to other drugs, medicaments and biological substances

== ENCOUNTER → 2019-08-19 | Outpatient (CLI) | payer OTHER ==
[2019-08-19 10:59] LABS: BASO % 0.2 % (0.0-1.0); EOS % 0.1 % (0.0-3.0); HEMOGLOBIN 14.6 g/dl (13.5-17.5); LYMPH # 0.7 10^3/uL (1.5-5.0); LYMPH % 4.3 % (24.0-44.0); MEAN CORPUSCULAR HGB CONC 31.7 g/dl (32.0-36.5); MEAN CORPUSCULAR VOLUME 94.7 fl (80.0-96.0); MONO # 0.8 10^3/uL (0.0-0.8); MONO % 4.6 % (0.0-5.0); NEUTROPHILS # 14.7 10^3/uL (1.5-8.5); NEUTROPHILS % 90.2 % (36.0-66.0); PLATELET COUNT, AUTOMATED 348 10^3/uL (150-450); RED BLOOD COUNT 4.86 10^6/uL (4.30-6.10); WHITE BLOOD COUNT 16.3 10^3/uL (4.0-10.0)
== END ==
LOC: M LAB 10:29
PROVIDERS: ATTEND Physician Assistant
DX: J18.9 Pneumonia, unspecified organism (principal)

== ENCOUNTER → 2019-10-05 | Outpatient (CLI) | payer OTHER ==
[~2019-10-05] MED LIST changes: +CEFD1CAP8 PO; +LEVA12INH INH; +TEST30SO3 TD
== END ==
LOC: M WHC 10:34
PROVIDERS: ATTEND Internal Medicine Pulmonary Disease
DX: Z79.52 Long term (current) use of systemic steroids (principal)

== ENCOUNTER → 2019-10-07 | Outpatient (CLI) | payer OTHER ==
--- NOTE | 2019-10-07 17:29 | REPVR ---
PROCEDURE INFORMATION: Exam: CT Chest Without Contrast Exam date and time: 10/07/2019 4:52 PM Age: 59 years old Clinical indication: Condition or disease; Other: Pneumonia TECHNIQUE: Imaging protocol: Computed tomography of the chest without contrast. 3D rendering: MIP and/or 3D reconstructed images were created by the technologist. Radiation optimization: All CT scans at this facility use at least one of these dose optimization techniques: automated exposure control; mA and/or kV adjustment per patient size (includes targeted exams where dose is matched to clinical indication); or iterative reconstruction. COMPARISON: CT Chest without contrast 08/23/2019 8:31 AM FINDINGS: Lungs: 3 mm noncalcified pleural-based nodule right upper lobe unchanged. The finding is likely postinflammatory. No follow-up required. There has been interval partial clearing of previously demonstrated coarse bibasilar predominate peribronchial parenchymal infiltrates. Mild thickening of the airways in the lower lobes also demonstrated consistent with reactive airway disease or bronchitis. Well inflated lungs consistent with COPD. Pleural space: Unremarkable. No pneumothorax. No pleural effusion. Heart: There is mild atherosclerotic calcification of the coronary arteries. Small pericardial effusion. Aorta: There is fusiform dilatation of the ascending thoracic aorta which measures 3.9 cm. maximally. Findings stable in comparison to the prior study of 08/23/2019. There is no saccular component. Lymph nodes: Unremarkable. No enlarged lymph nodes. Bones/joints: Chronic healing rib fractures anterior aspect of the 3rd through 9th ribs on the left. Chronic wedge compression deformity of T7 stable in appearance. Soft tissues: Unremarkable. IMPRESSION: 1. 3 mm noncalcified pleural-based nodule right upper lobe unchanged. The finding is likely postinflammatory. No follow-up required. 2. There has been interval partial clearing of previously demonstrated coarse bibasilar predominate peribronchial parenchymal infiltrates. Mild thickening of the airways in the lower lobes also demonstrated consistent with reactive airway disease or bronchitis. 3. There is fusiform dilatation of the ascending thoracic aorta which measures 3.9 cm. maximally. Findings stable in comparison to the prior study of 08/23/2019. There is no saccular component. Electronically signed by: Gregory Marte On 10/07/2019 17:29:07 PM
== END ==
LOC: M RAD 16:34
PROVIDERS: ATTEND Internal Medicine Pulmonary Disease
DX: J18.9 Pneumonia, unspecified organism (principal)

== ENCOUNTER → 2019-12-15 | Outpatient (CLI) | payer OTHER ==
[2019-12-18 00:11] LABS: D001-IgE D pteronyssinus <0.10 kU/L (Class 0); E001-IgE Cat Epith/Dander < 0.10 kU/L (Class 0); E005-IgE Dog Dander < 0.10 kU/L (Class 0); G002-IgE Bermuda Grass 0.82 kU/L (Class II); G008-IgE Kentucky Bluegrass 0.41 kU/L (Class I); M001-IgE Penicillium chrysogen 0.12 kU/L (Class 0/I); M002 IgE Cladosporium herbaru < 0.10 kU/L (Class 0); M003 IgE Aspergillus fumigatu 1.02 kU/L (Class II); M006-IgE Alternaria alternata < 0.10 kU/L (Class 0); T001-IgE Maple/Box Elder 0.44 kU/L (Class I); T003-IgE Common Silver Birch 0.54 kU/L (Class I); T006-IgE Cedar, Mountain 0.17 kU/L (Class 0/I); T007-IgE Oak, White 0.24 kU/L (Class 0/I); T008-IgE Elm, American 0.61 kU/L (Class II); T015-IgE Ash, White 1.35 kU/L (Class II); T041-IgE Hickory, White 0.17 kU/L (Class 0/I); T070-IgE White Mulberry < 0.10 kU/L (Class 0); W001-IgE Ragweed, Short 0.39 kU/L (Class I); W009-IgE Plantain, English 0.42 kU/L (Class I); W014-IgE Pigweed, Rough 0.47 kU/L (Class I); W018-IgE Sheep Sorrel 0.98 kU/L (Class II)
== END ==
LOC: M PLALAB 08:38
PROVIDERS: ATTEND Internal Medicine Pulmonary Disease
DX: J45.50 Severe persistent asthma, uncomplicated (principal)

== ENCOUNTER → 2019-12-24 | Outpatient (CLI) | payer OTHER ==
--- NOTE | 2019-12-25 01:09 | REPPI ---
Clinical: Pneumonia. Follow-up. Technique: PA and lateral views of the chest. Comparison: 08/18/2019. Findings: Mediastinum and cardiac silhouette are within normal limits and stable. Lung barba demonstrate diffuse chronic interstitial changes. Subtle residual bibasilar atelectasis/infiltrates (right greater than left) are suggested without significant effusion. No pneumothorax. Skeletal structures are intact. Impression: Persistent mildly improved subtle bibasilar opacities suggesting elements of atelectasis/infiltrate. Clinical/physical correlation is recommended. Electronically Signed by Damaso Son MD 12/25/2019 01:00 A
== END ==
LOC: M PLAIMG 15:44
PROVIDERS: ATTEND Internal Medicine Pulmonary Disease
DX: R91.8 Other nonspecific abnormal finding of lung field (principal); J18.9 Pneumonia, unspecified organism

== ENCOUNTER → 2019-12-31 | Outpatient (REF) | payer OTHER | LOC: M LAB REF 10:41 | PROVIDERS: ATTEND Internal Medicine Pulmonary Disease | DX: J47.9 Bronchiectasis, uncomplicated (principal) ==

== ENCOUNTER → 2020-01-17 | Outpatient (CLI) | payer OTHER | LOC: M LABSMTC 09:02 | PROVIDERS: ATTEND Anesthesiology | DX: Z03.818 Encounter for observation for suspected exposure to other biological agents ruled out (principal); Z11.59 Encounter for screening for other viral diseases | CPT/HCPCS: C9803; U0003 ==

== ENCOUNTER 2020-01-20 06:17 | Day surgery (SDC) | payer OTHER ==
[~2020-01-20] VITALS: Ht 185.4 cm; Wt 69.0 kg
[~2020-01-20 06:17] MED LIST changes: +LIDOCAINE 1% MDV 20ML VIAL SQ PRN
[2020-01-20] MEDS ORDERED: LR 1,000 ML IV ONE (07:00)
[2020-01-20] MEDS ORDERED: ALBUTEROL SULFATE 2.5 MG/0.5 ML INH NEB SOLN As Ordered ONE (07:10)
[2020-01-20] MEDS ORDERED: EPINEPHrine 1MG/10ML SYRINGE 1.5IN As Ordered ONE (07:11)
[2020-01-20] MEDS ORDERED: CETACAINE SPRAY 5GM As Ordered ONE (07:11)
[2020-01-20] MEDS ORDERED: THROMBIN SOLN 20,000 UNITS KIT As Ordered ONE (07:11)
[2020-01-20] MEDS ORDERED: LIDOCAINE PRES-FREE 2% 10ML AMP As Ordered ONE (07:14)
[2020-01-20] MEDS ORDERED: ROCURONIUM BROMIDE 50 MG/5 ML VIAL As Ordered ONE (07:14)
[2020-01-20] MEDS ORDERED: SUGAMMADEX SODIUM 500 MG/5 ML VIAL (BRIDION) As Ordered ONE (07:14)
[2020-01-20] MEDS ORDERED: dexameTHASONE 4 MG/ML 1ML VIAL (J1100 PER 1MG) As Ordered ONE (07:14)
[2020-01-20] MEDS ORDERED: ONDANSETRON 4MG/2ML VIAL As Ordered ONE (07:14)
[2020-01-20] MEDS ORDERED: THROMBIN SOLN 5,000 UNITS VIAL As Ordered ONE (07:14)
[2020-01-20] MEDS ORDERED: propofoL 200 MG/20 ML VIAL As Ordered ONE (07:14)
[2020-01-20] MEDS ORDERED: MIDAZOLAM INJ 2MG/2ML VIAL (J2250 PER 1MG) As Ordered ONE (07:15)
[2020-01-20] MEDS ORDERED: fentaNYL 100 MCG/2 ML INJECTION (J3010) As Ordered ONE (07:15)
[2020-01-20] MEDS ORDERED: ALBUTEROL SULFATE 2.5 MG/0.5 ML INH NEB SOLN INH ONE (07:30)
[2020-01-20] MEDS ORDERED: LEVALBUTEROL 1.25 MG/0.5 ML CONCENTRATE NEB INH ONE (08:30)
[2020-01-20] MEDS ORDERED: ONDANSETRON 4MG/2ML VIAL IV PRN (08:30)
[2020-01-20] MEDS ORDERED: LR 1,000 ML IV SCH (08:30)
--- NOTE | 2020-01-20 08:40 | REP ---
Portable chest x-ray: Two views. History: Postop evaluation. Comparison chest x-ray: August 18, 2019 and December 24, 2019. Findings: The lungs are hyperinflated. There is no evidence of pneumothorax or hydrothorax. Mild interstitial fibrosis pattern is seen in the bases bilaterally unchanged from most recent prior study. No new infiltrate. Heart is not enlarged. Impression: Hyperinflation and bibasilar interstitial fibrosis again noted. No acute disease. Electronically Signed by Crescencio Rucker MD 01/20/2020 08:30 A
--- NOTE | 2020-01-20 08:43 | RO ---
DATE OF PROCEDURE: 01/20/2020 PREOPERATIVE DIAGNOSIS: Abnormal chest CT, immunosuppression, antibiotic failure. POSTOPERATIVE DIAGNOSIS: Abnormal chest CT, immunosuppression, antibiotic failure. FINDINGS: Copious thick yellow tenacious sputum throughout the airways, predominately middle and lower lobes. PROCEDURE: Bronchoscopy with bronchoalveolar lavage. PROCEDURIST: Dr. Ez Bolivar MANAGER REAL ESTATE: None. ANESTHESIA: General. ESTIMATED BLOOD LOSS: DRAINS:None SPECIMENS OBTAINED: BAL lingula, left lower lobe, right middle lobe. DESCRIPTION OF PROCEDURE: After informed consent was reviewed with the patient in the preoperative area, he was brought back to OR number [id number]. He was intubated with an 8.0 endotracheal tube. The case was handed over to me. A time out again was performed with two patient identifiers, identifying correct site and correct procedure. The 1T-180 bronchoscope was then inserted into the airway. The trachea was midline. Chanelle was sharp. There was mucus within the airway which was suctioned. The mucus was very stringy, tenacious, stretching from the lower lobes all the way to the trachea at one point in time. All airways were inspected. RB 1 through 10 had banding and pitting, but no endobronchial lesions. The right mainstem bronchus was normal. RBI was normal. I then went into the left bronchus. The left mainstem bronchus was normal. LB 1 through 10 again with copious amounts of secretions which were suctioned. LB 1 through 10 again having banding and pitting. I performed a BAL of the lingula as this had the most amount of mucus and this was sent off for culture and gram stain. BAL was also performed of the left lower lobe and the right middle lobe based on the amount of secretions from the areas. There was a small whitish fungal appearing plaque. I was going to biopsy this, however, it was suctioned. Otherwise, there was no significant plaquing in the airway to suggest untreated fungal infection. After adequate clearance of secretions, the bronchoscope was removed. Hemostasis was assured prior to removal of the bronchoscope. The patient is being extubated and is in recovery. A postprocedure chest x-ray is pending. To this point, there are no observed complications. [facility]
[2020-01-20 09:35] VITALS: BP 124/74
[2020-01-20 10:56] LABS: APPEARANCE CLOTTED (CLEAR); COLOR PINK (COLORLESS); SOURCE RIGHT LOWER LOBE
== END 2020-01-20 10:00 | disposition home or self-care (01) ==
LOC: M SDC 06:17
PROVIDERS: ATTEND Internal Medicine Pulmonary Disease
DX: A31.0 Pulmonary mycobacterial infection (principal); B96.89 Other specified bacterial agents as the cause of diseases classified elsewhere; I25.10 Atherosclerotic heart disease of native coronary artery without angina pectoris; Z98.61 Coronary angioplasty status; E78.00 Pure hypercholesterolemia, unspecified; J44.9 Chronic obstructive pulmonary disease, unspecified; E11.9 Type 2 diabetes mellitus without complications; Z79.84 Long term (current) use of oral hypoglycemic drugs; Z79.899 Other long term (current) drug therapy; Z88.1 Allergy status to other antibiotic agents; Z88.8 Allergy status to other drugs, medicaments and biological substances
CPT/HCPCS: 31624; 71045; 87070; 87077; 87102; 87116; 87186; 87205; 87206; 88108; 88312; 88313; J1100; J2250; J2405; J3010

== ENCOUNTER → 2020-01-27 | Outpatient (CLI) | payer OTHER ==
[~2020-01-27] MED LIST changes: +ASPI81TA26 PO; +ASPI81TA86 PO; +AZIT-12 PO; +BIO CLEANSE PO; +D31000TA2 PO; +ELIQ5TAB PO; +ETHA1TAB2 PO; +FLON1SPR NARES; +IPRA0.00 NEB; -LIDOCAINE 1% MDV 20ML VIAL SQ PRN; +PROBCAP14 PO; +VITACAP31 PO; +[UNRECOGNIZED DRUG - CODE] IV
[2020-01-27 15:46] LABS: BLOOD UREA NITROGEN 20 MG/DL (7-18); CALCIUM LEVEL 8.9 MG/DL (8.8-10.2); CARBON DIOXIDE LEVEL 27 MEQ/L (21-32); CHLORIDE LEVEL 105 MEQ/L (98-107); GLOMERULAR FILTRATION RATE > 60.0 (>49); GLUCOSE, FASTING 179 MG/DL (70-100); SODIUM LEVEL 141 MEQ/L (136-145)
== END ==
LOC: M PLALAB 13:34
PROVIDERS: ATTEND Internal Medicine Pulmonary Disease
DX: J18.9 Pneumonia, unspecified organism (principal)

== ENCOUNTER → 2020-02-25 | Outpatient (CLI) | payer OTHER ==
--- NOTE | 2020-02-25 11:18 | REP ---
Abnormal pulmonary findings. Technique: Axial noncontrast images from the thoracic inlet to the upper abdomen with coronal and sagittal re-formations. Comparison: 10/07/2019, 08/19/2019 Findings: Mild bilateral lower lobe bronchiectasis with associated subtle scattered bibasilar infiltrates are again noted and may be slightly improved as compared to prior examination. Small amount of mucosal plugging to distal bronchi in the medial right lower lobe appreciated. No new acute consolidation, effusion or pneumothorax. No significant nodule or mass lesion. No adenopathy. Mediastinum demonstrates stable atherosclerotic changes to the thoracic aorta and coronary arteries along with stable aneurysmal dilatation to the ascending thoracic aorta measuring 4 cm diameter. Surrounding musculoskeletal structures are intact without acute osseous abnormality. Impression: 1. Mild chronic bilateral lower lobe bronchiectasis and mild bibasilar subtle scattered infiltrates relatively similar to prior examination. Clinical correlation is recommended as continued active process cannot be excluded. 2. No new acute mediastinal or pleuroparenchymal process appreciated. Electronically Signed by Damaso Son MD 02/25/2020 11:10 A
== END ==
LOC: M RAD 10:43
PROVIDERS: ATTEND Internal Medicine Pulmonary Disease
DX: R91.8 Other nonspecific abnormal finding of lung field (principal)

== ENCOUNTER → 2020-03-14 | Outpatient (REF) | payer OTHER ==
[2020-04-15 11:43] LABS: BASO # 0.1 10^3/uL (0.0-0.2); BASO % 0.9 % (0.0-1.0); EOS # 0.1 10^3/uL (0.0-0.5); HEMATOCRIT 44.6 % (42.0-52.0); HEMOGLOBIN 13.9 g/dl (13.5-17.5); LYMPH # 1.5 10^3/uL (1.5-5.0); LYMPH % 22.1 % (24.0-44.0); MEAN CORPUSCULAR HEMOGLOBIN 30.5 pg (27.0-33.0); MEAN CORPUSCULAR HGB CONC 31.2 g/dl (32.0-36.5); MEAN CORPUSCULAR VOLUME 97.8 fl (80.0-96.0); MONO # 0.8 10^3/uL (0.0-0.8); MONO % 11.6 % (0.0-5.0); NEUTROPHILS # 4.3 10^3/uL (1.5-8.5); NEUTROPHILS % 63.1 % (36.0-66.0); PLATELET COUNT, AUTOMATED 316 10^3/uL (150-450); RED BLOOD COUNT 4.56 10^6/uL (4.30-6.10); WHITE BLOOD COUNT 6.9 10^3/uL (4.0-10.0)
[2020-04-27 18:04] LABS: ALBUMIN 3.1 GM/DL (3.2-5.2); ALT/SGPT 52 U/L (12-78); BILIRUBIN,TOTAL 0.6 MG/DL (0.2-1.0); BLOOD UREA NITROGEN 16 MG/DL (7-18); CALCIUM LEVEL 8.7 MG/DL (8.8-10.2); CARBON DIOXIDE LEVEL 31 MEQ/L (21-32); CHLORIDE LEVEL 107 MEQ/L (98-107); CHOLESTEROL LEVEL 126 MG/DL (<200); CREATININE FOR GFR 0.77 MG/DL (0.70-1.30); GLOMERULAR FILTRATION RATE > 60.0 (>49); GLUCOSE, FASTING 121 MG/DL (70-100); HDL CHOLESTEROL 51 MG/DL (>40); IMMUNOGLOBULIN G 808 MG/DL (681-1648); IMMUNOGLOBULIN M 67.4 MG/DL (40-230); LDL CHOLESTEROL 62 MG/DL (<100); NON-HDL-C 75 MG/DL; POTASSIUM SERUM 4.1 MEQ/L (3.5-5.1); SODIUM LEVEL 144 MEQ/L (136-145); TOTAL 25(OH) VITAMIN D 34.9 NG/ML (30.0-100.0); TOTAL PROTEIN 5.9 GM/DL (6.4-8.2); TRIGLYCERIDES LEVEL 66 MG/DL (<150)
[2020-04-27 18:05] LABS: HEMOGLOBIN A1c 7.1 %
[2020-05-30 13:51] LABS: TESTOSTERONE FREE (DIRECT) See Separate Report PG/ML; TESTOSTERONE TOTAL FOR T&D See Separate Report NG/DL
== END ==
LOC: M SFHCPLAZ 14:47
PROVIDERS: ATTEND Internal Medicine Infectious Disease
DX: E11.9 Type 2 diabetes mellitus without complications (principal); E23.0 Hypopituitarism; L08.9 Local infection of the skin and subcutaneous tissue, unspecified

== ENCOUNTER → 2020-04-07 | Outpatient (REF) | payer OTHER | LOC: M LAB REF 15:45 | PROVIDERS: ATTEND Internal Medicine Infectious Disease | DX: A31.0 Pulmonary mycobacterial infection (principal) ==

== ENCOUNTER → 2020-04-19 | Outpatient (CLI) | payer OTHER ==
[2020-04-19 13:23] LABS: BASO # 0.1 10^3/uL (0.0-0.2); BASO % 0.9 % (0.0-1.0); EOS # 0.2 10^3/uL (0.0-0.5); EOS % 2.6 % (0.0-3.0); HEMATOCRIT 39.7 % (42.0-52.0); HEMOGLOBIN 12.4 g/dl (13.5-17.5); LYMPH # 0.8 10^3/uL (1.5-5.0); LYMPH % 10.4 % (24.0-44.0); MEAN CORPUSCULAR HEMOGLOBIN 30.3 pg (27.0-33.0); MEAN CORPUSCULAR HGB CONC 31.2 g/dl (32.0-36.5); MEAN CORPUSCULAR VOLUME 97.1 fl (80.0-96.0); MONO # 0.9 10^3/uL (0.0-0.8); MONO % 10.9 % (0.0-5.0); NEUTROPHILS % 74.6 % (36.0-66.0); PLATELET COUNT, AUTOMATED 487 10^3/uL (150-450); RED BLOOD COUNT 4.09 10^6/uL (4.30-6.10); WHITE BLOOD COUNT 8.1 10^3/uL (4.0-10.0)
[2020-04-19 13:32] LABS: ALBUMIN 2.8 GM/DL (3.2-5.2); ALT/SGPT 27 U/L (12-78); BILIRUBIN,TOTAL 0.4 MG/DL (0.2-1.0); BLOOD UREA NITROGEN 9 MG/DL (7-18); CARBON DIOXIDE LEVEL 26 MEQ/L (21-32); CHLORIDE LEVEL 106 MEQ/L (98-107); CREATININE FOR GFR 0.81 MG/DL (0.70-1.30); GLOMERULAR FILTRATION RATE > 60.0 (>49); GLUCOSE, FASTING 190 MG/DL (70-100); NT-PRO BNP 321 PG/ML (<125); POTASSIUM SERUM 4.4 MEQ/L (3.5-5.1); SODIUM LEVEL 140 MEQ/L (136-145)
[2020-04-19 14:01] LABS: ERYTHROCYTE SEDIMENTATION RATE 26 mm/hr (0-20)
== END ==
LOC: M PLALAB 09:10
PROVIDERS: ATTEND Internal Medicine Infectious Disease
DX: R60.9 Edema, unspecified (principal); B96.5 Pseudomonas (aeruginosa) (mallei) (pseudomallei) as the cause of diseases classified elsewhere; Z79.84 Long term (current) use of oral hypoglycemic drugs; Z79.01 Long term (current) use of anticoagulants

== ENCOUNTER 2020-04-22 10:35 | Outpatient (CLI) | payer OTHER ==
[~2020-04-22] VITALS: Ht 185.4 cm; Wt 68.9 kg
[~2020-04-22 10:35] MED LIST changes: -ASPI81TA26 PO; -D31000TA2 PO; -ELIQ5TAB PO; -IPRA0.00 NEB; -LIDOCAINE 1% MDV 20ML VIAL As Ordered ONE; +SODIUM CHLORIDE 0.9% INJ 10 ML SYR IV PRN; -[UNRECOGNIZED DRUG - CODE] IV
[2020-04-22 10:45] VITALS: BP 117/73
[2020-04-22] MEDS ORDERED: CEFEPIME HCL 2 GM in D5W MINI-BAG PLUS 50 ML IV ONE (11:30)
[2020-04-22 12:45] VITALS: BP 110/62
[2020-04-22] MEDS ORDERED: SODIUM CHLORIDE 0.9% INJ 10 ML SYR IV SCH (18:00)
== END 2020-04-22 12:45 | disposition home or self-care (01) ==
LOC: M INFU 10:35
PROVIDERS: ATTEND Internal Medicine Infectious Disease
DX: J98.4 Other disorders of lung (principal); B96.5 Pseudomonas (aeruginosa) (mallei) (pseudomallei) as the cause of diseases classified elsewhere
CPT/HCPCS: 96365; J0692

== ENCOUNTER → 2020-04-22 | Outpatient (CLI) | payer OTHER ==
[~2020-04-22] MED LIST changes: +LIDOCAINE 1% MDV 20ML VIAL As Ordered ONE
[2020-04-22 10:26] VITALS: BP 108/71
--- NOTE | 2020-05-06 08:42 | REP ---
PICC LINE INSERTION WITH MARIA ELENA The procedure was performed under the direct supervision of Dr. Rucker. The risks and benefits of the procedure were explained to the patient and informed consent was obtained. The left basilic vein was localized using ultrasound guidance. The skin was prepped and draped in a sterile fashion. A 1% Lidocaine was used as a local anesthetic. Using ultrasound guidance, the basilic vein was cannulated and a 0.018 guidewire was inserted and advanced to the SVC using fluoroscopic guidance. The needle was removed and a 4.5 Czech dilator and Peel-Away sheath was inserted over the guidewire. A 4.5 Czech single-lumen catheter was cut to a length of 47 cm. The dilator was removed and the catheter was inserted over the guidewire with the tip ending in the SVC. The Peel-Away sheath was removed, and the catheter was flushed with heparinized saline as per hospital protocol. The catheter was affixed to the skin and a sterile dressing was applied. The patient tolerated the procedure well and there were no immediate complications. 0.3 minutes of fluoroscopy time was utilized for this procedure. CASSY
== END ==
LOC: M IRPRO 09:43
PROVIDERS: ATTEND Internal Medicine Infectious Disease
DX: J98.4 Other disorders of lung (principal); B96.5 Pseudomonas (aeruginosa) (mallei) (pseudomallei) as the cause of diseases classified elsewhere
CPT/HCPCS: 36571; 76937; C1751; J1642; J1644

== ENCOUNTER → 2020-05-03 | Outpatient (CLI) | payer OTHER ==
[~2020-05-03] MED LIST changes: +ASPI81TA26 PO; +D31000TA2 PO; +ELIQ5TAB PO; +IPRA0.00 NEB; -SODIUM CHLORIDE 0.9% INJ 10 ML SYR IV PRN; +[UNRECOGNIZED DRUG - CODE] IV
[2020-05-03 13:37] LABS: HEMATOCRIT 42.3 % (42.0-52.0); HEMOGLOBIN 13.1 g/dl (13.5-17.5); MEAN CORPUSCULAR HEMOGLOBIN 29.7 pg (27.0-33.0); MEAN CORPUSCULAR VOLUME 95.9 fl (80.0-96.0); PLATELET COUNT, AUTOMATED 354 10^3/uL (150-450); RED BLOOD COUNT 4.41 10^6/uL (4.30-6.10); WHITE BLOOD COUNT 9.3 10^3/uL (4.0-10.0)
[2020-05-03 15:09] LABS: BLOOD UREA NITROGEN 22 MG/DL (7-18); CARBON DIOXIDE LEVEL 23 MEQ/L (21-32); CHLORIDE LEVEL 107 MEQ/L (98-107); CREATININE FOR GFR 0.76 MG/DL (0.70-1.30); FOLATE 5.2 NG/ML (>5.4); GLOMERULAR FILTRATION RATE > 60.0 (>49); GLUCOSE, FASTING 153 MG/DL (70-100); HIV 1&2 SCREEN CENTAUR NEGATIVE (NEGATIVE); POTASSIUM SERUM 4.4 MEQ/L (3.5-5.1); SODIUM LEVEL 139 MEQ/L (136-145); VITAMIN B12 LEVEL 874 PG/ML (247-911)
[2020-05-04 13:07] LABS: % CD8 Pos Lymph 21.5 % (12.0-35.5); %CD4 Pos Lymphs 47.2 % (30.8-58.5); ABS Basophils 0.1 x10E3/uL (0.0-0.2); ABS Eosinophils 0.2 x10E3/uL (0.0-0.4); ABS Lymphs 0.8 x10E3/uL (0.7-3.1); ABS Monocytes 0.7 x10E3/uL (0.1-0.9); ABS Neutophils 7.8 x10E3/uL (1.4-7.0); Abs CD4 Helper 378 /uL (359-1519); Abs CD8 Suppres 172 /uL (109-897); Eosinophils 2 % (Not Estab.); HCT 40.9 % (37.5-51.0); HGB 13.2 g/dL (13.0-17.7); Immature Grans 0 % (Not Estab.); Lymphocytes 9 % (Not Estab.); MCH 29.7 pg (26.6-33.0); MCHC 32.3 g/dL (31.5-35.7); MCV 92 fL (79-97); Monocytes 7 % (Not Estab.); Neutrophils 81 % (Not Estab.); Platelets 350 x10E3/uL (150-450); RBC 4.44 x10E6/uL (4.14-5.80); RDW 13.4 % (11.6-15.4); WBC 9.6 x10E3/uL (3.4-10.8)
== END ==
LOC: M PLALAB 09:42
PROVIDERS: ATTEND Internal Medicine Infectious Disease
DX: Z00.00 Encounter for general adult medical examination without abnormal findings (principal)

== ENCOUNTER → 2020-05-11 | Outpatient (REF) | payer OTHER ==
[2020-05-11 12:06] LABS: HEMATOCRIT 43.4 % (42.0-52.0); HEMOGLOBIN 13.4 g/dl (13.5-17.5); MEAN CORPUSCULAR HEMOGLOBIN 29.2 pg (27.0-33.0); MEAN CORPUSCULAR HGB CONC 30.9 g/dl (32.0-36.5); MEAN CORPUSCULAR VOLUME 94.6 fl (80.0-96.0); PLATELET COUNT, AUTOMATED 306 10^3/uL (150-450); RED BLOOD COUNT 4.59 10^6/uL (4.30-6.10); WHITE BLOOD COUNT 8.6 10^3/uL (4.0-10.0)
[2020-05-11 12:15] LABS: BLOOD UREA NITROGEN 28 MG/DL (7-18); CALCIUM LEVEL 9.1 MG/DL (8.8-10.2); CARBON DIOXIDE LEVEL 27 MEQ/L (21-32); CHLORIDE LEVEL 107 MEQ/L (98-107); CREATININE FOR GFR 0.86 MG/DL (0.70-1.30); GLOMERULAR FILTRATION RATE > 60.0 (>49); GLUCOSE, FASTING 168 MG/DL (70-100); POTASSIUM SERUM 4.3 MEQ/L (3.5-5.1); SODIUM LEVEL 139 MEQ/L (136-145)
[2020-05-11 12:42] LABS: ERYTHROCYTE SEDIMENTATION RATE 4 mm/hr (0-20)
== END ==
LOC: M SHH 11:31
PROVIDERS: ATTEND Internal Medicine Infectious Disease
DX: Z51.81 Encounter for therapeutic drug level monitoring (principal)

== ENCOUNTER 2020-05-18 15:41 | Observation (INO) | payer OTHER ==
[~2020-05-18] VITALS: Ht 185.4 cm; Wt 70.8 kg
[~2020-05-18 15:41] MED LIST changes: -ASPI81TA26 PO; -D31000TA2 PO; -ELIQ5TAB PO; -IPRA0.00 NEB; -LIDOCAINE 1% MDV 20ML VIAL As Ordered ONE; -[UNRECOGNIZED DRUG - CODE] IV
[2020-05-18] MEDS ORDERED: [UNRECOGNIZED DRUG - CODE] IV (16:04)
[2020-05-18] MEDS ORDERED: HEPARIN DRIP 25,000 UNITS in IV 1 EA IV SCH ×2 (18:08→20:45)
[2020-05-18] MEDS ORDERED: HEPARIN SOD (PORCINE) 5000UNITS/ML 1ML VIAL/SYRINGE IV ONE ×2 (18:15→20:45)
[2020-05-18 18:42] LABS: INR 0.98; PROTHROMBIN TIME 13.2 SECONDS (12.5-14.3)
[2020-05-18] MEDS ORDERED: IPRA0.00 NEB (18:52)
[2020-05-18] MEDS ORDERED: ASPI81TA26 PO (18:52)
[2020-05-18] MEDS ORDERED: D31000TA2 PO (18:52)
[2020-05-18] MEDS ORDERED: DEXTROSE 50% 50 ML SYRINGE IV PRN (20:45)
[2020-05-18] MEDS ORDERED: HEPARIN SOD (PORCINE) 5000UNITS/ML 1ML VIAL/SYRINGE IV PRN (20:45)
[2020-05-18] MEDS ORDERED: AMIKACIN 1000 MG/4 ML VIAL (J0278) IV SCH (20:45)
[2020-05-18] MEDS ORDERED: GLUCOSE 4GM CHEW TABLET PO PRN (20:45)
[2020-05-18] MEDS ORDERED: GLUCAGON INJ 1MG VIAL SC PRN (20:45)
[2020-05-18] MEDS: HumaLOG INSULIN (NovoLOG) PER UNIT SC SCH (21:00)
[2020-05-18] MEDS: SYMBICORT 160/4.5MCG INHALER 6GM INH SCH (21:00)
--- NOTE | 2020-05-18 21:15 | HPEPDOC ---
General Date of Admission May 18, 2020 at 15:42 Date of Service: May 18, 2020 Attending Physician: ORLANDO LOYOLA DO Chief Complaint The patient is a 60-year-old male admitted with a reason for visit of DVT. History of Present Illness Pt is a 60 y/o male who presents to [facility] ER due to L arm swelling for about 10 days now but has not gotten better. 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 He recieved abx through it and is currently on amikican MWF per infectious disease (Dr. Rivera). He states that he does not have any pain in the L arm but the swelling has increased. IN the ER U/S of upper extr shows L subclavian v going into axillary v DVT and a small thrombus in proximal brachial vein. PMHX DM2 asthma COPD Past surgical hx: appendectomy knee scope umbilical hernia detached retinas Family hx: Dad : 85 y/o type 2 DM Mom - HTN and dementia Social hx: never smoker denies ETOH and illicit drugs ALL: see below LABS: see below IMAGING: IMPRESSION: Deep vein thrombosis extending from left subclavian vein into the axillary vein. Small thrombus noted within a proximal brachial vein as well. This was discussed with the technologist who performed performed the examination. 2. Superficial thrombosis within the basilic vein. THIS REPORT CONTAINS FINDINGS THAT MAY BE CRITICAL TO PATIENT CARE. The findings were verbally communicated via telephone conference with TOM RIVERA at 3:07 PM EDT on 05/18/2020. The findings were acknowledged and understood. Home Medications Scheduled Amikacin Sulfate (Amikacin Sulfate) 1,000 Mg/4 Ml Vial, 1,000 MG IV 3XW, (Reported) MON/WED/FRI Aspirin (Aspirin EC) 81 Mg Tablet.dr, 81 MG PO QHS, (Reported) Atorvastatin Calcium (Atorvastatin Calcium) 40 Mg Tablet, 40 MG PO QHS, (Reported) Azithromycin (Azithromycin) 250 Mg Tablet, 250 MG PO DAILY, (Reported) Brinzolamide/Brimonidine Tart (Simbrinza 1%-0.2% Eye Drops) 8 Ml Drops.susp, 1 DROP OU BID, (Reported) Budesonide/Formoterol (Symbicort 160-4.5 Mcg Inhaler) 6 Gm Hfa.aer.ad, 2 PUFF INH BID, (Reported) Cholecalciferol (Vitamin D3) (Vitamin D3) 1,000 Unit Tablet, 4,000 UNITS PO DAILY, (Reported) Ethambutol HCl (Ethambutol HCl) 400 Mg Tablet, 1,200 MG PO QHS, (Reported) Fluticasone Propionate (Flonase Allergy Relief) 9.9 Ml [place].susp, 1 SPRAY NARES BID, (Reported) Glipizide (Glipizide) 5 Mg Tablet, 10 MG PO QAM, (Reported) Glipizide (Glipizide) 5 Mg Tablet, 5 MG PO DAILY, (Reported) TAKES AT LUNCHTIME Ipratropium/Albuterol Sulfate (Iprat-Albut 0.5-3(2.5) mg/3 ml) 3 Ml Ampul.neb, 1 VIAL NEB TID, (Reported) Lactobacillus Acidophilus (Probiotic) 1 Each Capsule, 1 CAP PO QPM, (Reported) Metformin HCl (Metformin HCl) 1,000 Mg Tablet, 1,000 MG PO BID, (Reported) Methylprednisolone (Methylprednisolone) 4 Mg Tablet, 8 MG PO DAILY, (Reported) Mometasone Furoate (Asmanex) 220 Mcg Aer.pow.ba, 2 PUFF INH BID, (Reported) Montelukast Sodium (Singulair) 10 Mg Tablet, 10 MG PO QHS, (Reported) Tadalafil (Cialis) 5 Mg Tablet, 5 MG PO QHS, (Reported) Testosterone (Testosterone) 30 Mg/1.5 Ml Melody.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 reactor 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, 2 PUMP TD ASDIRECTED, (Reported) APPLY 2 PUMPS TO EACH ARMPIT Allergies Coded Allergies: clavulanic acid (Verified Allergy, Unknown, 04/20/20) sitagliptin (Verified Allergy, Unknown, 04/20/20) levofloxacin (Verified Adverse Reaction, Severe, TEARS ACILLES, 04/20/20) liraglutide (Verified Adverse Reaction, Intermediate, PANCREATITIS, 04/20/20) rifampin (Verified Adverse Reaction, Mild, VOMITING, 04/20/20) amoxicillin (Verified Adverse Reaction, Unknown, 04/20/20) A-FIB/CHADSVASC A-FIB History Current/History of A-Fib/PAF?: No Current PO Anticoag Therapy: No Review of Systems Constitutional: Denies: Chills, Fever, Malaise, Night Sweats Eyes: Denies: Pain, Vision change Skin: Reports: Other (L arm swollen but nontender ); Denies: Rash, Lesions, Jaundice, Bruising Pulmonary: Reports: Cough; Denies: Dyspnea, Pleuritic Chest Pain Cardiovascular: Denies: Chest Pain, Palpitations, Orthopnea Gastrointestinal: Denies: Nausea, Vomiting, Abdominal Pain Genitourinary: Denies: Dysuria, Frequency, Incontinence Endocrine: Denies: Polydipsia, Polyphagia, Polyuria Neurological: Denies: Weakness, Numbness Psych: Reports: Mood Normal Physical Examination General Exam: Positive: Alert, Cooperative, No Acute Distress Eye Exam: Positive: PERRLA ENT Exam: Positive: Atraumatic Neck Exam: Positive: Supple; Negative: JVD, thyromegaly, Lymphadenopathy Chest Exam: Positive: Clear to auscultation, Normal air movement; Negative: Rales, Rhonchi, Wheezing, Diminished Heart Exam: Positive: Rate Normal Abdomen Exam: Positive: Normal bowel sounds, Soft; Negative: Tenderness, Hepatospenomegaly Extremity Exam: Negative: Clubbing, Cyanosis, Edema Vital Signs Vital Signs Date Time Temp Pulse Resp B/P (MAP) Pulse Ox O2 Delivery O2 Flow Rate FiO2 05/18/20 20:07 97.9 73 17 150/89 (109) 97 Room Air Laboratory Data Labs 24H Laboratory Tests 2 05/18/20 18:20: Prothrombin Time 13.2, Prothromb Time International Ratio 0.98, Activated Partial Thromboplast Time 31.0 Assessment/Plan Pt is a 60 y/o male who presents to [facility] ER due to L arm swelling for about 10 days now but has not gotten better. 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 He recieved abx through it and is currently on amikican MW per infectious disease (Dr. Rivera). He states that he does not have any pain in the L arm but the swelling has increased. Pt will be admitted and given heparin gtt for DVT of upper extr and PICC line to be removed tomorrow and replaced in R arm. Plan / VTE VTE Prophylaxis Ordered?: Yes Plan Plan #DVT - U/S L upper extr shows DVT extending from L subclavian v into axillary v and small thrombus w/i a proximal brachial v - provoked DVT 2/2 to PICC line -Heparin gtt - PTT and plt monitoring - Will need anticoags for at least 3 months outpt basis - DC picc line - replace PICC on R side tomorrow and consider consulting ID (Dr. Rivera) in the am #DM 2 - Metformin and glipizide held - SSI + FSBS q6h #Asthma #COPD - Not in Asthma or COPD exacerbation - continue duonebs q8h - O2 NC to titrate 88-92% PRN - continue methylpred 8mg PO daily - continue singulair DVT ppx: heparin IVF: none Diet: consistent carb diet GI ppx: protonix 40mg PO daily Code: full Roxana Cottrell DO May 18, 2020 21:15
[2020-05-18 22:22] VITALS: BP 153/84
[2020-05-18] MEDS: MONTELUKAST 10 MG TAB PO SCH (23:27)
[2020-05-18] MEDS: ATORVASTATIN 20 MG TAB PO SCH (23:27)
[2020-05-19] MEDS: IPRATROPIUM 0.5MG/ALBUTEROL 2.5MG INH SOL UD 3ML (DUONEB) NEB SCH ×4 (00:01→23:06)
[2020-05-19] MEDS: FLUTICASONE PROP 0.05% NASAL SPRAY 16 GM (FLONASE) NARES SCH ×3 (02:03→21:00)
[2020-05-19] MEDS: ETHAMBUTOL 400MG TAB PO SCH ×2 (02:03→20:54)
[2020-05-19 06:00] VITALS: BP 145/84
[2020-05-19] MEDS: HumaLOG INSULIN (NovoLOG) PER UNIT SC SCH ×4 (07:30→21:00)
[2020-05-19] MEDS: SYMBICORT 160/4.5MCG INHALER 6GM INH SCH ×2 (07:35→19:36)
[2020-05-19] MEDS: PANTOPRAZOLE 40MG TAB (PROTONIX) PO SCH (08:34)
[2020-05-19] MEDS: VITAMIN D 1,000 INTERNATIONAL UNITS TABLET PO SCH (08:34)
[2020-05-19] MEDS: AZITHROMYCIN 250MG TABLET PO SCH (08:35)
[2020-05-19 08:40] LABS: BASO # 0.1 10^3/uL (0.0-0.2); BASO % 1.1 % (0.0-1.0); EOS # 0.4 10^3/uL (0.0-0.5); EOS % 6.6 % (0.0-3.0); HEMATOCRIT 38.5 % (42.0-52.0); HEMOGLOBIN 12.1 g/dl (13.5-17.5); LYMPH # 1.4 10^3/uL (1.5-5.0); LYMPH % 25.8 % (24.0-44.0); MEAN CORPUSCULAR HEMOGLOBIN 29.1 pg (27.0-33.0); MEAN CORPUSCULAR HGB CONC 31.4 g/dl (32.0-36.5); MEAN CORPUSCULAR VOLUME 92.5 fl (80.0-96.0); MONO # 0.7 10^3/uL (0.0-0.8); MONO % 13.1 % (0.0-5.0); NEUTROPHILS % 53.2 % (36.0-66.0); PLATELET COUNT, AUTOMATED 291 10^3/uL (150-450); RED BLOOD COUNT 4.16 10^6/uL (4.30-6.10); WHITE BLOOD COUNT 5.6 10^3/uL (4.0-10.0)
[2020-05-19 08:45] LABS: BLOOD UREA NITROGEN 20 MG/DL (7-18); CALCIUM LEVEL 8.5 MG/DL (8.8-10.2); CARBON DIOXIDE LEVEL 28 MEQ/L (21-32); CHLORIDE LEVEL 110 MEQ/L (98-107); CREATININE FOR GFR 0.68 MG/DL (0.70-1.30); GLOMERULAR FILTRATION RATE > 60.0 (>49); GLUCOSE, FASTING 81 MG/DL (70-100); POTASSIUM SERUM 4.2 MEQ/L (3.5-5.1); SODIUM LEVEL 144 MEQ/L (136-145)
--- NOTE | 2020-05-19 13:37 | IPN ---
PULMONARY PROGRESS NOTE Ez Bolivar DO is my supervising physician and will be co-signing this note. DATE: 05/19/2020 SUBJECTIVE: Mr. Quesada is seen [facility]. He was admitted with a DVT in the left subclavian vein into the axillary vein and in the proximal brachial vein. It was felt that this was provoked due to a left sided PICC line. The patient has a PICC line due to history of mycobacterium infection requiring I.V. antibiotics with amikacin for which he is following with infectious disease as an outpatient. He does follow with Dr. Bolivar as an outpatient for history of asthma. Patient reportedly had swelling in the left upper extremity for approximately 10 days prior to coming into the hospital. It was when he was evaluated in the ER he was found to have DVT of the left subclavian vein into the axillary vein, and a thrombus in the proximal brachial vein. He has been placed on I.V. heparin. Plans are being made for removal of the left PICC line and placement of a right PICC line. Patient reports that he is doing better. He denies any chest pain or left upper extremity pain. He notes the left upper extremity swelling has been decreasing. He denies fevers or chills. He states his breathing has been good and denies any current shortness of breath. PHYSICAL EXAMINATION: Vitals: Temperature 98.4, pulse 78, respiratory rate 16, blood pressure 145/84, pulse ox 97% on room air. General: Patient is sitting up in bed. He speaks in complete sentences. He is alert and oriented times 3. HEENT: Head is normocephalic, atraumatic. Moist mucous membranes. Tongue is midline. Neck: No cervical lymphadenopathy. No obvious JVD. No carotid bruits. Heart: Regular rate and rhythm, S1 and S2, no murmurs. Pulmonary: Clear to auscultation bilaterally, no wheezes, rhonchi or rales. No dullness to percussion. No accessory muscle use. Abdomen: Positive bowel sounds, soft, nontender, no guarding or rebound. Extremities: No cyanosis, clubbing or edema. There is generalized muscle wasting. Skin: Warm and dry. Neurologic: Nonfocal grossly. LABORATORY DATA: WBC 5.6, hemoglobin 12.1, hematocrit 38.5, platelets 291. Sodium 144, potassium 4.2, chloride 110, carbon dioxide 28, BUN 20, creatinine 0.68, glucose 81, calcium 8.5. PTT 82. RADIOLOGY STUDIES: Ultrasound performed on 05/18/2020 shows DVT extending from the left subclavian vein into the axillary vein. Small thrombus noted within the proximal brachial vein as well and a superficial thrombosis within the basilic vein. ASSESSMENT AND PLAN: 1. DVT of the left subclavian vein into the axillary vein. There is a thrombus in the proximal brachial vein as well: Patient was admitted and placed on heparin. Plan will be for removal of the left sided PICC line and he will need placement of a right sided PICC line in order to continue I.V. antibiotics for the mycobacterium infection. Once new PICC line is placed patient can be placed on anticoagulation such as Xarelto. We will defer this to the medicine team. The etiology of the DVT does appear likely due to the PICC line. 2. Mycobacterium infection: The patient is being treated for a mycobacterium infection. He is on I.V. amikacin as well as oral ethambutol and oral azithromycin. These medications have been continued during his hospital course. As noted a PICC on the left is likely responsible for the DVT. This left sided PICC line will be removed. Patient will be sent for placement of a right sided PICC line in order to continue the I.V. antibiotics. He is following with infectious disease as an outpatient. 3. Asthma: The patient does have severe asthma and is on Symbicort, Singulair and Asmanex. He is getting as needed nebs. He is on chronic steroids with 8 mg of Medrol. These medications have been continued during his hospitalization. He should continue to follow with pulmonary upon discharge. CASSY
--- NOTE | 2020-05-19 16:12 | REP ---
PROCEDURE NAME: PICC LINE INSERTION W/SITERITE SEDATION: None CLINICAL INFORMATION: right arm PHYSICIAN: Frances Spain PROCEDURE DESCRIPTION: The procedure was performed by JEANETTE Cerda, under the direct supervision of Dr. Rucker. The risks and benefits of the procedure were explained to the patient and an informed consent was obtained both verbally and written. Directly prior to the start of the procedure a formal time-out was completed in the procedure room. The right lateral brachial vein was localized using ultrasound guidance. The skin was prepped and draped in sterile fashion. 1 mL of 1% lidocaine 10 milligrams/milliliter was used as a local anesthetic. Using ultrasound guidance the right lateral brachial vein was cannulated, and a 0.018 guidewire was inserted and advanced to the level of SVC using fluoroscopic guidance. The needle was removed and a 5.5 Welsh dilator and peel-away sheath was inserted over the guidewire. A 5.5 Welsh dual lumen catheter was cut to a length of 35 cm. The dilator was removed and the catheter was inserted over the guidewire with the tip ending at the level of the SVC. The peel-away sheath was removed and the catheter was flushed with heparinized saline as per hospital protocol. The catheter was affixed to the skin and a sterile dressing was applied. The patient tolerated the procedure well and there were no immediate complications. ESTIMATED BLOOD LOSS: Less than 5 mL COMPLICATIONS: None CONCLUSION: Successful PICC line insertion into the right lateral brachial vein <Electronically signed by Oswaldo Rucker > 05/19/20 [id number]
[2020-05-19] MEDS ORDERED: SODIUM CHLORIDE 0.9% INJ 10 ML SYR IV PRN (17:15)
--- NOTE | 2020-05-19 18:30 | IPNPDOC ---
Date Seen The patient was seen on 05/19/20. Progress Note SUBJECTIVE: Kiran was seen and examined this morning by the hospitalist service while lying upright in bed. He has not experienced any itching, pain, numbness, or tingling in his left arm since the onset of the swelling 10 days ago. He explained that the PICC line in his left arm was for his antibiotic treatments for his pseudomonas and mycobacterium [place] which has been followed by Dr. Hagen of infectious disease. He stated that when the swelling did not improve, he conta cted Dr. Hagen and she suggested for him to get a LUE ultrasound. He just gotten a nebulizer treatment prior to us entering the room. He denies any current or overnight chest pain, chest pressure, palpitations, SOB, nausea, vomiting, or diarrhea. OBJECTIVE PHYSICAL EXAMINATION: VITAL SIGNS: Please see below. GENERAL: Pleasant male lying upright in bed. NAD. A&O x3. HEENT: NC, AT. Noninjected, anicteric sclera. MMM, no pharyngeal erythema. NECK: Trachea midline. Neck supple. No lymphadenopathy appreciated. CV: Borderline tachycardic rate with regular rhythm. Normal S1, S2. No m/r/g appreciated. RESPIRATORY: mild rhonchi appreciated in the bases B/L, no significant crackles or wheezes appreciated. Good respiratory effort. Symmetric chest expansion. Breathing room air. Speaking full sentences. ABDOMEN: soft, ND, NT, normoactive bowel sounds throughout in all 4 quadrants, no masses or organomegaly appreciated. No guarding or rigidity. EXTREMITIES: Moderate swelling over left elbow, forearm and left wrist with no erythema, warmth or induration. There is a PICC line in place in left arm and heparin gtt running through IV on RUE. Trace ankle non-pitting edema B/L, pedal pulses +2 and equal B/L. NEURO: Mood and affect appear appropriate LABORATORY DATA, IMAGING STUDIES, MICROBIOLOGY: Please see below. - VASCULAR ULTRASOUND, 05/17/20: Impression 1. Deep vein thrombosis extending from left subclavian vein into the axillary vein. Small thrombus noted within a proximal brachial vein as well. This was discussed with the technologist who performed performed the examination. 2. Superficial thrombosis within the basilic vein. THIS REPORT CONTAINS FINDINGS THAT MAY BE CRITICAL TO PATIENT CARE. The findings were verbally communicated via telephone conference with TOM HAGEN at 3:07 PM EDT on 05/18/2020. The findings were acknowledged and understood. ASSESSMENT AND PLAN: This is a 60yo male with a PMH of severe asthma who presented to the ED complaining of left arm swelling for 10 days, vascular ultrasound showed a clot surrounding the PICC line and small thrombus in proximal brachial vein concerning for a DVT. # Upper extremity DVT, provoked: - d/c PICC line in left arm and place PICC line in right arm - once PICC inserted in right arm, will d/c heparin and, two hours after gtt discontinuation, will start Eliquis 10mg one time dose tonight, then beginning tomorrow, pt will take 10 mg BID for 6 days through 05/25. On 05/26, will begin 5 weeks of 5 mg bid. At the end of 6 weeks of AC, repeat LUE U/S will be done to assess for clot burden; should there be no clot burden, AC will be stopped. Should a clot burden remain, he will receive 6 more weeks of 5 mg bid Eliquis and after 12 total weeks of AC, it will be stopped. # Type 2 Diabetes - continue to hold home medications - c/w SSI + FSBS q6hrs # Severe Asthma/COPD - continue duoneb treatment q8h - continue methylprednisolone and singulair - O2 to titrate 88-92% -respiratory service (Dr. Bolivar) follows pt as outpt and evaluated the pt today at bedside. -c/w current ABX regimen for psudomonas and mycobacterium [place] infections (further discussed below). 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 Bolivar) and infectious disease (Dr. Hagen) as outpt -current home triple abx treatment regimen of azithromycin, amikacin, and ethamb utol was continued upon admission. Per pulmonology, pt will receive 3 months of amikacin then subsequently switch to aricase. Mycobacterium [place] abx treatments are long (9-18 months) with 83-89% cure rates after 12 months of treatment. Pt will f/u for continued abx oversight with ID upon hospital d/c. #DVT prophylaxis: Currently receiving heparin gtt Disposition: Discharge likely in the next 24-48 hrs pending switch of picc line to rt arm and subsequent initiation of NOAC medication for ac in setting of provoked DVT. This note was written and composed by JONATHAN Baltazar. I was present for the examination of the pt and agree with the findings contained within the n ote. VS, I&O, 24H, Fishbone Vital Signs/I&O Vital Signs Date Time Temp Pulse Resp B/P (MAP) Pulse Ox O2 Delivery O2 Flow Rate FiO2 05/19/20 15:20 82 18 98 Room Air 05/19/20 14:39 98.1 05/19/20 06:00 145/84 (104) I&O- Last 24 Hours up to 6 AM 05/19/20 06:00 Intake Total 180 ml Output Total 0 ml Balance 180 ml Laboratory Data 24H LABS Laboratory Tests 2 05/18/20 22:55: Bedside Glucose (Misc Panel) 247H 05/19/20 01:11: Activated Partial Thromboplast Time 100.3H 05/19/20 06:09: Activated Partial Thromboplast Time 82.0H, Immature Granulocyte % (Auto) 0.2, Neutrophils (%) (Auto) 53.2, Lymphocytes (%) (Auto) 25.8, Monocytes (%) (Auto) 13.1H, Eosinophils (%) (Auto) 6.6H, Basophils (%) (Auto) 1.1H, Neutrophils # (Auto) 3.0, Lymphocytes # (Auto) 1.4L, Monocytes # (Auto) 0.7, Eosinophils # (Auto) 0.4, Basophils # (Auto) 0.1, Nucleated Red Blood Cells % (auto) 0.0, Anion Gap 6L, Glomerular Filtration Rate > 60.0, Calcium Level 8.5L 05/19/20 07:21: Bedside Glucose (Misc Panel) 86 05/19/20 11:44: Activated Partial Thromboplast Time 67.8H 05/19/20 12:22: Bedside Glucose (Misc Panel) 170H CBC/BMP Laboratory Tests 05/19/20 06:09 Microbiology Microbiology 05/19/20 Stool Occult Blood (EVELINE) - Final, Complete GME ATTESTATION GME ATTESTATION My faculty preceptor for this patient encounter was physically present during the encounter and was fully available. All aspects of the patient interview, examination, medical decision making process, and medical care plan development were reviewed and approved by the faculty preceptor. The faculty preceptor is aware and concurs with the plan as stated in the body of this note and will at test to such by his/her cosignature. ATTENDING NOTE Patient was seen and examined by me personally with the residents and the students. Agree with the above assessment and plan. TAVON PRICE D.O. May 19, 2020 18:30 ROGER IBANEZ MD May 20, 2020 14:21
[2020-05-19] MEDS ORDERED: APIXABAN 5 MG TAB (ELIQUIS) PO ONE (20:00)
[2020-05-19] MEDS: ATORVASTATIN 20 MG TAB PO SCH (20:53)
[2020-05-19] MEDS: MONTELUKAST 10 MG TAB PO SCH (20:54)
[2020-05-19 22:00] VITALS: BP 205/104
[2020-05-19 22:30] VITALS: BP 180/100
[2020-05-19] MEDS ORDERED: **hydrALAZINE** 10 MG TAB PO ONE (22:45)
[2020-05-19 23:02] VITALS: BP 180/100
[2020-05-19] MEDS: SODIUM CHLORIDE 0.9% INJ 10 ML SYR IV SCH (23:02)
[2020-05-20 03:00] VITALS: BP 142/93
[2020-05-20 06:00] VITALS: BP 143/96
[2020-05-20] MEDS: SODIUM CHLORIDE 0.9% INJ 10 ML SYR IV SCH (06:47)
[2020-05-20 06:59] LABS: BASO # 0.1 10^3/uL (0.0-0.2); BASO % 0.9 % (0.0-1.0); EOS # 0.2 10^3/uL (0.0-0.5); EOS % 3.7 % (0.0-3.0); HEMATOCRIT 38.3 % (42.0-52.0); HEMOGLOBIN 11.9 g/dl (13.5-17.5); LYMPH # 1.2 10^3/uL (1.5-5.0); LYMPH % 20.5 % (24.0-44.0); MEAN CORPUSCULAR HEMOGLOBIN 28.8 pg (27.0-33.0); MEAN CORPUSCULAR HGB CONC 31.1 g/dl (32.0-36.5); MEAN CORPUSCULAR VOLUME 92.7 fl (80.0-96.0); MONO # 0.8 10^3/uL (0.0-0.8); MONO % 13.7 % (0.0-5.0); NEUTROPHILS # 3.4 10^3/uL (1.5-8.5); PLATELET COUNT, AUTOMATED 264 10^3/uL (150-450); RED BLOOD COUNT 4.13 10^6/uL (4.30-6.10); WHITE BLOOD COUNT 5.6 10^3/uL (4.0-10.0)
[2020-05-20 07:19] LABS: BLOOD UREA NITROGEN 19 MG/DL (7-18); CALCIUM LEVEL 8.3 MG/DL (8.8-10.2); CARBON DIOXIDE LEVEL 29 MEQ/L (21-32); CHLORIDE LEVEL 109 MEQ/L (98-107); GLOMERULAR FILTRATION RATE > 60.0 (>49); GLUCOSE, FASTING 115 MG/DL (70-100); MAGNESIUM LEVEL 1.9 MG/DL (1.8-2.4); POTASSIUM SERUM 3.8 MEQ/L (3.5-5.1); SODIUM LEVEL 142 MEQ/L (136-145)
[2020-05-20] MEDS: HumaLOG INSULIN (NovoLOG) PER UNIT SC SCH ×3 (07:30→13:01)
[2020-05-20] MEDS: SYMBICORT 160/4.5MCG INHALER 6GM INH SCH (07:38)
[2020-05-20] MEDS ORDERED: ENTER DRUG NAME HERE (PATIENT'S OWN MED) INH SCH (08:00)
[2020-05-20] MEDS: VITAMIN D 1,000 INTERNATIONAL UNITS TABLET PO SCH (08:13)
[2020-05-20] MEDS: AZITHROMYCIN 250MG TABLET PO SCH (08:14)
[2020-05-20] MEDS: PANTOPRAZOLE 40MG TAB (PROTONIX) PO SCH (08:14)
[2020-05-20] MEDS ORDERED: ELIQ5TAB PO ×4 (08:46→08:54)
[2020-05-20] MEDS ORDERED: APIXABAN 5 MG TAB (ELIQUIS) PO SCH (09:00)
[2020-05-20] MEDS ORDERED: ENTER DRUG NAME HERE (PATIENT'S OWN MED) OU SCH (09:00)
[2020-05-20] MEDS: IPRATROPIUM 0.5MG/ALBUTEROL 2.5MG INH SOL UD 3ML (DUONEB) NEB SCH (09:03)
[2020-05-20] MEDS: FLUTICASONE PROP 0.05% NASAL SPRAY 16 GM (FLONASE) NARES SCH (09:47)
[2020-05-20] MEDS ORDERED: AMIKACIN SULFATE 1,000 MG in NS 250 ML IV SCH (10:00)
--- NOTE | 2020-05-20 12:26 | ECGEPIP ---
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
[2020-05-20 14:00] VITALS: BP 145/82
--- NOTE | 2020-05-20 15:29 | DS.PDOC ---
Discharge Summary General Date of Admission May 18, 2020 at 15:42 Date of Discharge May 20, 2020 Attending Physician: ROGER IBANEZ MD Discharge Summary PROCEDURES PERFORMED DURING STAY: [None]. ADMITTING DIAGNOSES: 1. L upper extremity DVT in setting of PICC line DISCHARGE DIAGNOSES: 1. Left upper extremity DVT COMPLICATIONS/CHIEF COMPLAINT: DVT. HISTORY OF PRESENT ILLNESS: Pt is a 60 y/o male who presents to [facility] ER due to L arm swelling for about 10 days now but has not gotten better. 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 He recieved abx through it and is currently on [facility] MWF per infectious disease (Dr. Rivera). He states that he does not have any pain in the L arm but the swelling has increased. IN the ER U/S of upper extr shows L subclavian v going into axillary v DVT and a small thrombus in proximal brachial vein. HOSPITAL COURSE: The patient was admitted with left arm swelling for 10 days and after upper extremity Doppler ultrasound found DVT in the proximal brachial vein where his PICC line was placed. On hospital day 2 the patient had his PICC line removed and a new one placed in the right arm. The patient remained stable throughout his hospitalization. He did have some hypertension which resolved with oral hydralazine and was found to have a few beats of V. tach on telemetry which he was asymptomatic. He was discharged home with instructions to continue his IV antibiotics as prescribed by pulmonology and infectious disease. DISCHARGE MEDICATIONS: Please see below. ALLERGIES: Please see below. PHYSICAL EXAMINATION ON DISCHARGE: VITAL SIGNS: Please see below. PHYSICAL EXAMINATION: VITAL SIGNS: Please see below. GENERAL: Pleasant male lying upright in bed. NAD. A&O x3. HEENT: NC, AT. Noninjected, anicteric sclera. MMM, no pharyngeal erythema. NECK: Trachea midline. Neck supple. No lymphadenopathy appreciated. CV: Borderline tachycardic rate with regular rhythm. Normal S1, S2. No m/r/g appreciated. RESPIRATORY: mild rhonchi appreciated in the bases B/L, no significant crackles or wheezes appreciated. Good respiratory effort. Symmetric chest expansion. Br eathing room air. Speaking full sentences. ABDOMEN: soft, ND, NT, normoactive bowel sounds throughout in all 4 quadrants, no masses or organomegaly appreciated. No guarding or rigidity. EXTREMITIES: Moderate swelling over left elbow, forearm and left wrist with no erythema, warmth or induration. There is a PICC line in place in left arm and heparin gtt running through IV on RUE. Trace ankle non-pitting edema B/L, pedal pulses +2 and equal B/L. NEURO: Mood and affect appear appropriate IMAGING: LABORATORY DATA, IMAGING STUDIES, MICROBIOLOGY: Please see below. - VASCULAR ULTRASOUND, 05/17/20: Impression 1. Deep vein thrombosis extending from left subclavian vein into the axillary vein. Small thrombus noted within a proximal brachial vein as well. This was discussed with the technologist who performed performed the examination. 2. Superficial thrombosis within the basilic vein. THIS REPORT CONTAINS FINDINGS THAT MAY BE CRITICAL TO PATIENT CARE. The findings were verbally communicated via telephone conference with TOM RIVERA at 3:07 PM EDT on 05/18/2020. The findings were acknowledged and understood. LABORATORY DATA: Please see below. PROGNOSIS: fair ACTIVITY: [As tolerated]. DIET: Regular DISCHARGE PLAN: Home DISPOSITION: . DISCHARGE INSTRUCTIONS: 1. Follow-up with PCP, ID, pulmonology as needed ITEMS TO FOLLOWUP ON ON OUTPATIENT: 1. None DISCHARGE CONDITION: [Stable]. TIME SPENT ON DISCHARGE: Greater than 35 minutes. Vital Signs/I&Os Vital Signs Date Time Temp Pulse Resp B/P (MAP) Pulse Ox O2 Delivery O2 Flow Rate FiO2 05/20/20 06:00 97.9 67 18 143/96 (112) 97 Room Air I&O- Last 24 Hours up to 6 AM 05/20/20 06:00 Intake Total 1300 ml Output Total 450 ml Balance 850 ml Laboratory Data Labs 24H Laboratory Tests 2 05/19/20 21:06: Bedside Glucose (Misc Panel) 241H 05/20/20 06:26: Immature Granulocyte % (Auto) 0.2, Neutrophils (%) (Auto) 61.0, Lymphocytes (%) (Auto) 20.5L, Monocytes (%) (Auto) 13.7H, Eosinophils (%) (Auto) 3.7H, Basophils (%) (Auto) 0.9, Neutrophils # (Auto) 3.4, Lymphocytes # (Auto) 1.2L, Monocytes # (Auto) 0.8, Eosinophils # (Auto) 0.2, Basophils # (Auto) 0.1, Nucleated Red Blood Cells % (auto) 0.0, Anion Gap 4L, Glomerular Filtration Rate > 60.0, Calcium Level 8.3L, Magnesium Level 1.9 05/20/20 11:45: Bedside Glucose (Misc Panel) 239H CBC/BMP Laboratory Tests 05/20/20 06:26 FSBS Laboratory Tests Test 05/19/20 21:06 05/20/20 11:45 Range/Units Bedside Glucose (Misc Panel) 241 239 80-115 MG/DL Microbiology Microbiology 05/19/20 Stool Occult Blood (EVELINE) - Final, Complete Discharge Medications Scheduled Amikacin Sulfate (Amikacin Sulfate) 1,000 Mg/4 Ml Vial, 1,000 MG IV 3XW, (Reported) MON/WED/FRI Apixaban (Eliquis) 5 Mg Tablet, 10 MG PO ONCE for take for second dose on 05/20 Apixaban (Eliquis) 5 Mg Tablet, 10 MG PO BID for 1 tab bid from 05/21-05/25 Apixaban (Eliquis) 5 Mg Tablet, 5 MG PO BID for 5mg bid for 5wk start on 05/26 Apixaban (Eliquis) 5 Mg Tablet, 5 MG PO BID for 6wk 5mg bid start on 06/30 Aspirin (Aspirin EC) 81 Mg Tablet.dr, 81 MG PO QHS, (Reported) Atorvastatin Calcium (Atorvastatin Calcium) 40 Mg Tablet, 40 MG PO QHS, (R eported) Azithromycin (Azithromycin) 250 Mg Tablet, 250 MG PO DAILY, (Reported) Brinzolamide/Brimonidine Tart (Simbrinza 1%-0.2% Eye Drops) 8 Ml Drops.susp, 1 DROP OU BID, (Reported) Budesonide/Formoterol (Symbicort 160-4.5 Mcg Inhaler) 6 Gm Hfa.aer.ad, 2 PUFF INH BID, (Reported) Cholecalciferol (Vitamin D3) (Vitamin D3) 1,000 Unit Tablet, 4,000 UNITS PO DAILY, (Reported) Ethambutol HCl (Ethambutol HCl) 400 Mg Tablet, 1,200 MG PO QHS, (Reported) Fluticasone Propionate (Flonase Allergy Relief) 9.9 Ml [place].susp, 1 SPRAY NARES BID, (Reported) Glipizide (Glipizide) 5 Mg Tablet, 10 MG PO QAM, (Reported) Glipizide (Glipizide) 5 Mg Tablet, 5 MG PO DAILY, (Reported) TAKES AT LUNCHTIME Ipratropium/Albuterol Sulfate (Iprat-Albut 0.5-3(2.5) mg/3 ml) 3 Ml Ampul.neb, 1 VIAL NEB TID, (Reported) Lactobacillus Acidophilus (Probiotic) 1 Each Capsule, 1 CAP PO QPM, (Reported) Metformin HCl (Metformin HCl) 1,000 Mg Tablet, 1,000 MG PO BID, (Reported) Methylprednisolone (Methylprednisolone) 4 Mg Tablet, 8 MG PO DAILY, (Reported) Mometasone Furoate (Asmanex) 220 Mcg Aer.pow.ba, 2 PUFF INH BID, (Reported) Montelukast Sodium (Singulair) 10 Mg Tablet, 10 MG PO QHS, (Reported) Tadalafil (Cialis) 5 Mg Tablet, 5 MG PO QHS, (Reported) Testosterone (Testosterone) 30 Mg/1.5 Ml Melody.md.mortar man, 2 PUMP TD ASDIRECTED, (Reported) APPLY 2 PUMPS TO EACH ARMPIT Allergies Coded Allergies: clavulanic acid (Verified Allergy, Unknown, 04/20/20) sitagliptin (Verified Allergy, Unknown, 04/20/20) levofloxacin (Verified Adverse Reaction, Severe, TEARS ACILLES, 04/20/20) liraglutide (Verified Adverse Reaction, Intermediate, PANCREATITIS, 04/20/20) rifampin (Verified Adverse Reaction, Mild, VOMITING, 04/20/20) amoxicillin (Verified Adverse Reaction, Unknown, 04/20/20) GME ATTESTATION GME ATTESTATION My faculty preceptor for this patient encounter was physically present during the encounter and was fully available. All aspects of the patient interview, examination, medical decision making process, and medical care plan development were reviewed and approved by the faculty preceptor. The faculty preceptor is aware and concurs with the plan as stated in the body of this note and will attest to such by his/her cosignature. ATTENDING NOTE Patient was seen and examined by me personally with the residents/ students. I agree with the above assessment and plan KATLIN SOTELO MD May 20, 2020 14:47 ROGER IBANEZ MD Jun 07, 2020 12:22
== END 2020-05-20 15:38 | disposition home or self-care (01) ==
LOC: M ED 15:41 → M ED INP 15:42 → ENRESERV 21:15 → M MSPAV 22:21
PROVIDERS: ADMIT Internal Medicine; ATTEND Internal Medicine
DX: I82.622 Acute embolism and thrombosis of deep veins of left upper extremity (principal); B96.5 Pseudomonas (aeruginosa) (mallei) (pseudomallei) as the cause of diseases classified elsewhere; A31.9 Mycobacterial infection, unspecified; E11.9 Type 2 diabetes mellitus without complications; J44.9 Chronic obstructive pulmonary disease, unspecified; Z95.9 Presence of cardiac and vascular implant and graft, unspecified; Z88.0 Allergy status to penicillin; Z88.8 Allergy status to other drugs, medicaments and biological substances; Z79.899 Other long term (current) drug therapy; Z79.84 Long term (current) use of oral hypoglycemic drugs; Z79.01 Long term (current) use of anticoagulants
CPT/HCPCS: 36415; 36569; 36589; 76937; 80048; 82270; 83735; 85025; 85610; 85730; 93005; 94640; 99284; C1751; J1642; J1644

== ENCOUNTER → 2020-05-18 | Outpatient (REF) | payer OTHER ==
[2020-05-18 12:20] LABS: HEMATOCRIT 39.1 % (42.0-52.0); MEAN CORPUSCULAR HEMOGLOBIN 28.6 pg (27.0-33.0); MEAN CORPUSCULAR HGB CONC 30.7 g/dl (32.0-36.5); MEAN CORPUSCULAR VOLUME 93.3 fl (80.0-96.0); PLATELET COUNT, AUTOMATED 280 10^3/uL (150-450); RED BLOOD COUNT 4.19 10^6/uL (4.30-6.10); WHITE BLOOD COUNT 6.7 10^3/uL (4.0-10.0)
[2020-05-18 12:39] LABS: BLOOD UREA NITROGEN 25 MG/DL (7-18); CALCIUM LEVEL 8.6 MG/DL (8.8-10.2); CARBON DIOXIDE LEVEL 28 MEQ/L (21-32); CHLORIDE LEVEL 102 MEQ/L (98-107); CREATININE FOR GFR 0.89 MG/DL (0.70-1.30); GLOMERULAR FILTRATION RATE > 60.0 (>49); GLUCOSE, FASTING 199 MG/DL (70-100); POTASSIUM SERUM 4.1 MEQ/L (3.5-5.1); SODIUM LEVEL 139 MEQ/L (136-145)
[2020-05-18 12:53] LABS: ERYTHROCYTE SEDIMENTATION RATE 5 mm/hr (0-20)
== END ==
LOC: M SHH 11:56
PROVIDERS: ATTEND Internal Medicine Infectious Disease
DX: Z79.01 Long term (current) use of anticoagulants (principal)

== ENCOUNTER → 2020-05-18 | Outpatient (CLI) | payer OTHER ==
[~2020-05-18] MED LIST changes: +LIDOCAINE 1% MDV 20ML VIAL As Ordered ONE
--- NOTE | 2020-05-18 15:08 | REPVR ---
PROCEDURE INFORMATION: Exam: US Duplex Left Upper Extremity Veins, Limited Exam date and time: 05/18/2020 2:08 PM Age: 60 years old Clinical indication: Edema, localized and swelling (edema) of limb; Upper extremity, left; Prior surgery; Surgery date: <1 month; Surgery type: Picc line; Additional info: Left upper armpain swelling ? dvt TECHNIQUE: Imaging protocol: Real-time Duplex ultrasound of the Left Upper Extremity with 2-D brooks scale, color Doppler flow and spectral waveform analysis with image documentation. Limited exam focused on the left upper extremity veins. COMPARISON: No relevant prior studies available. FINDINGS: Left deep veins: Clot is noted surrounding the PICC line in the left subclavian vein. Clot extends into the axillary vein which is noncompressible. Clot noted within the basilic vein extending to the antecubital fossa. Small amount of clot is noted in 1 of the brachial veins proximally. A 2nd grade compresses normally. Left superficial veins: Clot present within the basilic vein. Cephalic vein is patent without thrombus. Soft tissues: Unremarkable. IMPRESSION: Deep vein thrombosis extending from left subclavian vein into the axillary vein. Small thrombus noted within a proximal brachial vein as well. This was discussed with the technologist who performed performed the examination. 2. Superficial thrombosis within the basilic vein. THIS REPORT CONTAINS FINDINGS THAT MAY BE CRITICAL TO PATIENT CARE. The findings were verbally communicated via telephone conference with TOM RIVERA at 3:07 PM EDT on 05/18/2020. The findings were acknowledged and understood. Electronically signed by: Connie Raymundo On 05/18/2020 15:08:20 PM
== END ==
LOC: M RAD 13:28
PROVIDERS: ATTEND Internal Medicine Infectious Disease
DX: M79.601 Pain in right arm (principal); M79.89 Other specified soft tissue disorders; I82.B12 Acute embolism and thrombosis of left subclavian vein; I82.A12 Acute embolism and thrombosis of left axillary vein; I82.622 Acute embolism and thrombosis of deep veins of left upper extremity; I82.612 Acute embolism and thrombosis of superficial veins of left upper extremity

== ENCOUNTER → 2020-05-25 | Outpatient (REF) | payer OTHER ==
[~2020-05-25] MED LIST changes: +ASPI81TA26 PO; +D31000TA2 PO; +ELIQ5TAB PO; +IPRA0.00 NEB; +[UNRECOGNIZED DRUG - CODE] IV
[2020-05-25 13:00] LABS: HEMATOCRIT 38.4 % (42.0-52.0); MEAN CORPUSCULAR HEMOGLOBIN 28.8 pg (27.0-33.0); MEAN CORPUSCULAR HGB CONC 31.3 g/dl (32.0-36.5); MEAN CORPUSCULAR VOLUME 92.3 fl (80.0-96.0); PLATELET COUNT, AUTOMATED 264 10^3/uL (150-450); RED BLOOD COUNT 4.16 10^6/uL (4.30-6.10); WHITE BLOOD COUNT 6.5 10^3/uL (4.0-10.0)
[2020-05-25 13:31] LABS: BLOOD UREA NITROGEN 21 MG/DL (7-18); CALCIUM LEVEL 8.4 MG/DL (8.8-10.2); CARBON DIOXIDE LEVEL 25 MEQ/L (21-32); CHLORIDE LEVEL 105 MEQ/L (98-107); CREATININE FOR GFR 0.76 MG/DL (0.70-1.30); GLOMERULAR FILTRATION RATE > 60.0 (>49); GLUCOSE, FASTING 169 MG/DL (70-100); SODIUM LEVEL 139 MEQ/L (136-145)
[2020-05-25 13:38] LABS: ERYTHROCYTE SEDIMENTATION RATE 8 mm/hr (0-20)
== END ==
LOC: M LAB REF 12:36
PROVIDERS: ATTEND Internal Medicine Infectious Disease
DX: J18.9 Pneumonia, unspecified organism (principal)

== ENCOUNTER → 2020-05-31 | Outpatient (CLI) | payer OTHER ==
--- NOTE | 2020-05-31 16:57 | REP ---
INDICATION: R/O DVT; RT UPPER EXTREMITY SWELLING COMPARISON: None. TECHNIQUE: Real time compression and duplex Doppler evaluation of the Right upper extremity deep venous system is performed. FINDINGS: The Right subclavian, jugular, axillary, basilic and cephalic veins are fully compressible where accessible with transducer pressure, and demonstrate no intraluminal thrombus and normal venous waveforms. There is a very small amount of thrombus on the catheter in the right brachial vein. IMPRESSION: There is a very small amount of thrombus on the catheter in the right brachial vein. <Electronically signed by Tejas Beckett > 05/31/20 [id number]
== END ==
LOC: M RAD 15:58
PROVIDERS: ATTEND Internal Medicine Infectious Disease
DX: I82.621 Acute embolism and thrombosis of deep veins of right upper extremity (principal)

== ENCOUNTER → 2020-06-01 | Outpatient (REF) | payer OTHER ==
[2020-06-01 13:43] LABS: HEMATOCRIT 38.9 % (42.0-52.0); HEMOGLOBIN 11.8 g/dl (13.5-17.5); MEAN CORPUSCULAR HEMOGLOBIN 28.4 pg (27.0-33.0); MEAN CORPUSCULAR HGB CONC 30.3 g/dl (32.0-36.5); MEAN CORPUSCULAR VOLUME 93.7 fl (80.0-96.0); PLATELET COUNT, AUTOMATED 297 10^3/uL (150-450); RED BLOOD COUNT 4.15 10^6/uL (4.30-6.10); WHITE BLOOD COUNT 6.4 10^3/uL (4.0-10.0)
[2020-06-01 14:15] LABS: ERYTHROCYTE SEDIMENTATION RATE 8 mm/hr (0-20)
[2020-06-01 14:19] LABS: BLOOD UREA NITROGEN 20 MG/DL (7-18); C REACTIVE PROTEIN QUANTITATIV 0.42 MG/DL (0.00-0.30); CALCIUM LEVEL 8.8 MG/DL (8.8-10.2); CARBON DIOXIDE LEVEL 26 MEQ/L (21-32); CHLORIDE LEVEL 104 MEQ/L (98-107); CREATININE FOR GFR 0.87 MG/DL (0.70-1.30); GLOMERULAR FILTRATION RATE > 60.0 (>49); GLUCOSE, FASTING 202 MG/DL (70-100); POTASSIUM SERUM 3.8 MEQ/L (3.5-5.1); SODIUM LEVEL 138 MEQ/L (136-145)
== END ==
LOC: M LAB REF 13:06
PROVIDERS: ATTEND Internal Medicine Infectious Disease
DX: J18.9 Pneumonia, unspecified organism (principal)

== ENCOUNTER → 2020-06-02 | Outpatient (REF) | payer OTHER | LOC: M SFHCPLAZ 09:08 | PROVIDERS: ATTEND Internal Medicine Infectious Disease | DX: A31.0 Pulmonary mycobacterial infection (principal) ==

== ENCOUNTER → 2020-06-10 | Outpatient (REF) | payer OTHER ==
[2020-06-10 13:23] LABS: HEMATOCRIT 41.6 % (42.0-52.0); HEMOGLOBIN 12.4 g/dl (13.5-17.5); MEAN CORPUSCULAR HEMOGLOBIN 28.1 pg (27.0-33.0); MEAN CORPUSCULAR HGB CONC 29.8 g/dl (32.0-36.5); MEAN CORPUSCULAR VOLUME 94.3 fl (80.0-96.0); PLATELET COUNT, AUTOMATED 345 10^3/uL (150-450); RED BLOOD COUNT 4.41 10^6/uL (4.30-6.10); WHITE BLOOD COUNT 5.8 10^3/uL (4.0-10.0)
[2020-06-10 13:46] LABS: BLOOD UREA NITROGEN 16 MG/DL (7-18); CARBON DIOXIDE LEVEL 25 MEQ/L (21-32); CHLORIDE LEVEL 104 MEQ/L (98-107); CREATININE FOR GFR 0.86 MG/DL (0.70-1.30); GLOMERULAR FILTRATION RATE > 60.0 (>49); GLUCOSE, FASTING 157 MG/DL (70-100); POTASSIUM SERUM 4.5 MEQ/L (3.5-5.1); SODIUM LEVEL 138 MEQ/L (136-145)
[2020-06-10 13:53] LABS: ERYTHROCYTE SEDIMENTATION RATE 7 mm/hr (0-20)
[2020-06-10 17:45] LABS: ALBUMIN 3.3 GM/DL (3.2-5.2); ALT/SGPT 41 U/L (12-78); BILIRUBIN,DIRECT 0.3 MG/DL (0.0-0.2); BILIRUBIN,TOTAL 0.9 MG/DL (0.2-1.0); TOTAL PROTEIN 6.2 GM/DL (6.4-8.2)
== END ==
LOC: M SHH 10:36
PROVIDERS: ATTEND Internal Medicine Infectious Disease
DX: A31.0 Pulmonary mycobacterial infection (principal)

== ENCOUNTER → 2020-06-17 | Outpatient (REF) | payer OTHER ==
[2020-06-17 12:01] LABS: HEMATOCRIT 38.9 % (42.0-52.0); MEAN CORPUSCULAR HEMOGLOBIN 28.8 pg (27.0-33.0); MEAN CORPUSCULAR HGB CONC 30.8 g/dl (32.0-36.5); MEAN CORPUSCULAR VOLUME 93.5 fl (80.0-96.0); PLATELET COUNT, AUTOMATED 322 10^3/uL (150-450); RED BLOOD COUNT 4.16 10^6/uL (4.30-6.10); WHITE BLOOD COUNT 6.4 10^3/uL (4.0-10.0)
[2020-06-17 12:24] LABS: ERYTHROCYTE SEDIMENTATION RATE 15 mm/hr (0-20)
[2020-06-17 12:31] LABS: BLOOD UREA NITROGEN 12 MG/DL (7-18); CALCIUM LEVEL 8.5 MG/DL (8.8-10.2); CARBON DIOXIDE LEVEL 27 MEQ/L (21-32); CHLORIDE LEVEL 104 MEQ/L (98-107); CREATININE FOR GFR 0.76 MG/DL (0.70-1.30); GLOMERULAR FILTRATION RATE > 60.0 (>49); GLUCOSE, FASTING 143 MG/DL (70-100); POTASSIUM SERUM 4.2 MEQ/L (3.5-5.1); SODIUM LEVEL 137 MEQ/L (136-145)
== END ==
LOC: M LAB REF 11:21
PROVIDERS: ATTEND Internal Medicine Infectious Disease
DX: M30.3 Mucocutaneous lymph node syndrome [Kawasaki] (principal)

== ENCOUNTER → 2020-06-22 | Outpatient (REF) | payer OTHER ==
[2020-06-22 12:25] LABS: HEMATOCRIT 36.2 % (42.0-52.0); HEMOGLOBIN 11.1 g/dl (13.5-17.5); MEAN CORPUSCULAR HGB CONC 30.7 g/dl (32.0-36.5); MEAN CORPUSCULAR VOLUME 91.2 fl (80.0-96.0); PLATELET COUNT, AUTOMATED 331 10^3/uL (150-450); RED BLOOD COUNT 3.97 10^6/uL (4.30-6.10); WHITE BLOOD COUNT 5.9 10^3/uL (4.0-10.0)
[2020-06-22 12:56] LABS: ERYTHROCYTE SEDIMENTATION RATE 12 mm/hr (0-20)
[2020-06-22 13:13] LABS: BLOOD UREA NITROGEN 15 MG/DL (7-18); CALCIUM LEVEL 8.3 MG/DL (8.8-10.2); CARBON DIOXIDE LEVEL 25 MEQ/L (21-32); CHLORIDE LEVEL 102 MEQ/L (98-107); CREATININE FOR GFR 0.84 MG/DL (0.70-1.30); GLOMERULAR FILTRATION RATE > 60.0 (>49); GLUCOSE, FASTING 139 MG/DL (70-100); POTASSIUM SERUM 4.3 MEQ/L (3.5-5.1); SODIUM LEVEL 135 MEQ/L (136-145)
== END ==
LOC: M SHH 11:55
PROVIDERS: ATTEND Internal Medicine Infectious Disease
DX: Z51.81 Encounter for therapeutic drug level monitoring (principal)

== ENCOUNTER → 2020-06-27 | Outpatient (REF) | payer OTHER ==
[2020-06-27 12:12] LABS: HEMATOCRIT 39.6 % (42.0-52.0); HEMOGLOBIN 12.3 g/dl (13.5-17.5); MEAN CORPUSCULAR HEMOGLOBIN 28.5 pg (27.0-33.0); MEAN CORPUSCULAR HGB CONC 31.1 g/dl (32.0-36.5); MEAN CORPUSCULAR VOLUME 91.7 fl (80.0-96.0); PLATELET COUNT, AUTOMATED 345 10^3/uL (150-450); RED BLOOD COUNT 4.32 10^6/uL (4.30-6.10); WHITE BLOOD COUNT 7.2 10^3/uL (4.0-10.0)
[2020-06-27 12:38] LABS: ERYTHROCYTE SEDIMENTATION RATE 7 mm/hr (0-20)
[2020-06-27 15:40] LABS: BLOOD UREA NITROGEN 22 MG/DL (7-18); CALCIUM LEVEL 9.1 MG/DL (8.8-10.2); CARBON DIOXIDE LEVEL 27 MEQ/L (21-32); CHLORIDE LEVEL 104 MEQ/L (98-107); CREATININE FOR GFR 1.01 MG/DL (0.70-1.30); GLOMERULAR FILTRATION RATE > 60.0 (>49); GLUCOSE, FASTING 118 MG/DL (70-100); POTASSIUM SERUM 4.7 MEQ/L (3.5-5.1); SODIUM LEVEL 137 MEQ/L (136-145)
== END ==
LOC: M LAB REF 10:57 → M SHH 10:57
PROVIDERS: ATTEND Internal Medicine Infectious Disease
DX: Z51.81 Encounter for therapeutic drug level monitoring (principal)

== ENCOUNTER → 2020-07-06 | Outpatient (REF) | payer OTHER ==
[2020-07-06 11:51] LABS: HEMATOCRIT 39.7 % (42.0-52.0); MEAN CORPUSCULAR HEMOGLOBIN 27.9 pg (27.0-33.0); MEAN CORPUSCULAR HGB CONC 30.2 g/dl (32.0-36.5); MEAN CORPUSCULAR VOLUME 92.3 fl (80.0-96.0); PLATELET COUNT, AUTOMATED 328 10^3/uL (150-450); WHITE BLOOD COUNT 6.7 10^3/uL (4.0-10.0)
[2020-07-06 12:26] LABS: ERYTHROCYTE SEDIMENTATION RATE 6 mm/hr (0-20)
[2020-07-06 12:31] LABS: BLOOD UREA NITROGEN 12 MG/DL (7-18); CALCIUM LEVEL 8.6 MG/DL (8.8-10.2); CARBON DIOXIDE LEVEL 23 MEQ/L (21-32); CHLORIDE LEVEL 107 MEQ/L (98-107); CREATININE FOR GFR 0.92 MG/DL (0.70-1.30); GLOMERULAR FILTRATION RATE > 60.0 (>49); GLUCOSE, FASTING 181 MG/DL (70-100); SODIUM LEVEL 138 MEQ/L (136-145)
== END ==
LOC: M LAB REF 11:18
PROVIDERS: ATTEND Internal Medicine Infectious Disease
DX: M30.3 Mucocutaneous lymph node syndrome [Kawasaki] (principal)

== ENCOUNTER → 2020-07-13 | Outpatient (REF) | payer OTHER ==
[2020-07-13 13:50] LABS: HEMATOCRIT 39.7 % (42.0-52.0); HEMOGLOBIN 12.1 g/dl (13.5-17.5); MEAN CORPUSCULAR HEMOGLOBIN 28.1 pg (27.0-33.0); MEAN CORPUSCULAR HGB CONC 30.5 g/dl (32.0-36.5); MEAN CORPUSCULAR VOLUME 92.3 fl (80.0-96.0); PLATELET COUNT, AUTOMATED 318 10^3/uL (150-450); WHITE BLOOD COUNT 8.3 10^3/uL (4.0-10.0)
[2020-07-13 14:19] LABS: BLOOD UREA NITROGEN 18 MG/DL (7-18); CALCIUM LEVEL 8.4 MG/DL (8.8-10.2); CARBON DIOXIDE LEVEL 25 MEQ/L (21-32); CHLORIDE LEVEL 105 MEQ/L (98-107); CREATININE FOR GFR 0.91 MG/DL (0.70-1.30); GLOMERULAR FILTRATION RATE > 60.0 (>49); GLUCOSE, FASTING 198 MG/DL (70-100); POTASSIUM SERUM 4.7 MEQ/L (3.5-5.1); SODIUM LEVEL 137 MEQ/L (136-145)
[2020-07-13 14:21] LABS: ERYTHROCYTE SEDIMENTATION RATE 5 mm/hr (0-20)
== END ==
LOC: M LAB REF 13:09
PROVIDERS: ATTEND Internal Medicine Infectious Disease
DX: A31.0 Pulmonary mycobacterial infection (principal)

== ENCOUNTER → 2020-07-25 | Outpatient (CLI) | payer OTHER ==
--- NOTE | 2020-07-25 09:09 | REPPI ---
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 FINDINGS: The mediastinum and cardiac silhouette are normal. The lung barba are clear and without acute consolidation, effusion, or pneumothorax. The skeletal structures are intact and normal. IMPRESSION: No acute cardiopulmonary process. <Electronically signed by Damaso Son > 07/25/20 [id number]
== END ==
LOC: M PLAIMG 08:46
PROVIDERS: ATTEND Internal Medicine Infectious Disease
DX: A31.0 Pulmonary mycobacterial infection (principal); Z20.828 Contact with and (suspected) exposure to other viral communicable diseases
CPT/HCPCS: 71046; U0003

== ENCOUNTER → 2020-07-27 | Outpatient (CLI) | payer OTHER ==
[2020-07-27 10:46] LABS: BASO # 0.1 10^3/uL (0.0-0.2); BASO % 1.5 % (0.0-1.0); EOS # 0.5 10^3/uL (0.0-0.5); EOS % 7.1 % (0.0-3.0); HEMATOCRIT 42.9 % (42.0-52.0); LYMPH # 1.6 10^3/uL (1.5-5.0); LYMPH % 25.3 % (24.0-44.0); MEAN CORPUSCULAR HEMOGLOBIN 27.8 pg (27.0-33.0); MEAN CORPUSCULAR HGB CONC 30.3 g/dl (32.0-36.5); MEAN CORPUSCULAR VOLUME 91.7 fl (80.0-96.0); MONO # 0.7 10^3/uL (0.0-0.8); MONO % 11.2 % (0.0-5.0); NEUTROPHILS # 3.6 10^3/uL (1.5-8.5); NEUTROPHILS % 54.7 % (36.0-66.0); PLATELET COUNT, AUTOMATED 370 10^3/uL (150-450); RED BLOOD COUNT 4.68 10^6/uL (4.30-6.10); WHITE BLOOD COUNT 6.5 10^3/uL (4.0-10.0)
[2020-07-27 11:16] LABS: ALBUMIN 3.6 GM/DL (3.2-5.2); ALT/SGPT 56 U/L (12-78); BILIRUBIN,TOTAL 0.9 MG/DL (0.2-1.0); BLOOD UREA NITROGEN 17 MG/DL (7-18); CARBON DIOXIDE LEVEL 30 MEQ/L (21-32); CHLORIDE LEVEL 105 MEQ/L (98-107); CHOLESTEROL LEVEL 115 MG/DL (<200); CHOLESTEROL RISK RATIO 2.446 (<5); CREATININE FOR GFR 0.94 MG/DL (0.70-1.30); FREE T4 1.39 NG/DL (0.76-1.46); GLOMERULAR FILTRATION RATE > 60.0 (>49); GLUCOSE, FASTING 138 MG/DL (70-100); HDL CHOLESTEROL 47 MG/DL (>40); LDL CHOLESTEROL 55 MG/DL (<100); NON-HDL-C 68 MG/DL; POTASSIUM SERUM 4.2 MEQ/L (3.5-5.1); SODIUM LEVEL 140 MEQ/L (136-145); TOTAL PROTEIN 6.3 GM/DL (6.4-8.2); TRIGLYCERIDES LEVEL 65 MG/DL (<150)
[2020-07-27 11:18] LABS: MALB URINE SIEMENS 8.4 MG/L; MAU/CREAT RATIO 6.6 MCG/MG (0.0-30.0)
[2020-07-27 11:50] LABS: HEMOGLOBIN A1c 6.4 %
[2020-07-27 15:21] LABS: TESTOSTERONE 441 NG/DL (241-827)
[2020-07-28 09:18] LABS: TOTAL 25(OH) VITAMIN D 46.1 NG/ML (30.0-100.0)
== END ==
LOC: M PLALAB 08:19
PROVIDERS: ATTEND Internal Medicine Endocrinology, Diabetes & Metabolism
DX: E11.65 Type 2 diabetes mellitus with hyperglycemia (principal); E55.9 Vitamin D deficiency, unspecified

== ENCOUNTER → 2020-08-01 | Outpatient (REF) | payer OTHER | LOC: M SFHCPLAZ 16:46 | PROVIDERS: ATTEND Internal Medicine Infectious Disease | DX: A31.0 Pulmonary mycobacterial infection (principal) ==

== ENCOUNTER → 2020-09-09 | Outpatient (CLI) | payer OTHER ==
[~2020-09-09] MED LIST changes: +ISOVUE-370 76% 100ML VIAL As Ordered ONE
--- NOTE | 2020-09-10 05:59 | REP ---
INDICATION: SOB COMPARISON: None. TECHNIQUE: Axial contrast enhanced images from the thoracic inlet to the upper abdomen using pulmonary embolus technique with multiplanar re-formations. 75 ml Isovue 370 intravenous contrast material administered without complication. This CT examination was performed using the following dose reduction techniques: Automated exposure control, adjustment of mA and/or kv according to the patient's size, and use of iterative reconstruction technique. FINDINGS: Satisfactory enhancement of the pulmonary vasculature is achieved and pulmonary embolus to the 3rd order right lower lobe anterior segment pulmonary artery is suspected (series 401; images 145-155). Subtle tree in bud opacities primarily involve the right lower lobe and to a lesser extent can be identified throughout the bilateral lung barba and are similar in morphology to prior examination but varied in extent and distribution. Mucous plugging to right lower lobe bronchi also noted. No effusion. No pneumothorax. No significant adenopathy. Further evaluation of the mediastinum demonstrates relatively normal thoracic aorta without aneurysm or dissection. Atherosclerotic changes of the coronary arteries also identified. No cardiomegaly or pericardial effusion. Small hiatal hernia at the gastroesophageal junction noted. IMPRESSION: 1. Suspected pulmonary emboli to the anterior segment right lower lobe pulmonary artery. 2. Scattered tree-in-bud infiltrate pattern similar in morphology to prior examination but with varied degree and distribution. Correlation is recommended to exclude a chronic pulmonary/systemic process or continued infectious/inflammatory process. <Electronically signed by Damaso Son > 09/10/20 [id number]
== END ==
LOC: M RAD 17:36
PROVIDERS: ATTEND Internal Medicine Infectious Disease
DX: R91.8 Other nonspecific abnormal finding of lung field (principal); J45.909 Unspecified asthma, uncomplicated
CPT/HCPCS: 71275; Q9967

== ENCOUNTER → 2020-09-21 | Outpatient (REF) | payer OTHER ==
[~2020-09-21] MED LIST changes: -ISOVUE-370 76% 100ML VIAL As Ordered ONE
== END ==
LOC: M SFHCPLAZ 15:19
PROVIDERS: ATTEND Internal Medicine Infectious Disease
DX: A31.0 Pulmonary mycobacterial infection (principal)

== ENCOUNTER → 2020-09-21 | Outpatient (REF) | payer OTHER ==
[2020-09-21 16:15] LABS: BASO % 0.2 % (0.0-1.0); EOS % 0.1 % (0.0-3.0); HEMATOCRIT 46.2 % (42.0-52.0); HEMOGLOBIN 14.1 g/dl (13.5-17.5); LYMPH # 0.5 10^3/uL (1.5-5.0); LYMPH % 4.5 % (24.0-44.0); MEAN CORPUSCULAR HEMOGLOBIN 28.4 pg (27.0-33.0); MEAN CORPUSCULAR HGB CONC 30.5 g/dl (32.0-36.5); MONO # 0.3 10^3/uL (0.0-0.8); MONO % 2.8 % (2.0-8.0); NEUTROPHILS # 10.1 10^3/uL (1.5-8.5); NEUTROPHILS % 91.6 % (36.0-66.0); PLATELET COUNT, AUTOMATED 327 10^3/uL (150-450); RED BLOOD COUNT 4.97 10^6/uL (4.30-6.10)
[2020-09-21 16:49] LABS: ALT/SGPT 48 U/L (12-78); BILIRUBIN,TOTAL 0.8 MG/DL (0.2-1.0); BLOOD UREA NITROGEN 29 MG/DL (7-18); CALCIUM LEVEL 8.8 MG/DL (8.8-10.2); CARBON DIOXIDE LEVEL 26 MEQ/L (21-32); CHLORIDE LEVEL 104 MEQ/L (98-107); CREATININE FOR GFR 0.93 MG/DL (0.70-1.30); GLOMERULAR FILTRATION RATE > 60.0 (>49); GLUCOSE, FASTING 91 MG/DL (70-100); POTASSIUM SERUM 4.4 MEQ/L (3.5-5.1); SODIUM LEVEL 140 MEQ/L (136-145); TOTAL PROTEIN 5.6 GM/DL (6.4-8.2)
== END ==
LOC: M SFHCPLAZ 15:20
PROVIDERS: ATTEND Internal Medicine Infectious Disease
DX: A31.0 Pulmonary mycobacterial infection (principal)

== ENCOUNTER → 2020-09-26 | Outpatient (CLI) | payer OTHER ==
--- NOTE | 2020-09-26 13:27 | REPPI ---
INDICATION: PULMONARY MYCOBACTERIUM COMPARISON: 07/25/2020. TECHNIQUE: PA/Lateral FINDINGS: Lungs: Clear, no infiltrate. Heart: Normal in size. Mediastinum: Mediastinal silhouette unremarkable. Pleural angles: Unremarkable.. Bones and soft tissues: There is an old midthoracic compression deformity which is stable. IMPRESSION: No acute pulmonary disease. <Electronically signed by Tejas Beckett > 09/26/20 [id number]
== END ==
LOC: M PLAIMG 09:29
PROVIDERS: ATTEND Internal Medicine Infectious Disease
DX: A31.0 Pulmonary mycobacterial infection (principal)

== ENCOUNTER → 2020-11-03 | Outpatient (REF) | payer OTHER ==
[2020-11-03 11:04] LABS: BASO # 0.1 10^3/uL (0.0-0.2); EOS # 0.3 10^3/uL (0.0-0.5); EOS % 3.8 % (0.0-3.0); HEMATOCRIT 40.8 % (42.0-52.0); HEMOGLOBIN 12.4 g/dl (13.5-17.5); LYMPH # 0.8 10^3/uL (1.5-5.0); LYMPH % 9.6 % (24.0-44.0); MEAN CORPUSCULAR HEMOGLOBIN 28.9 pg (27.0-33.0); MEAN CORPUSCULAR HGB CONC 30.4 g/dl (32.0-36.5); MEAN CORPUSCULAR VOLUME 95.1 fl (80.0-96.0); MONO # 0.8 10^3/uL (0.0-0.8); NEUTROPHILS # 6.6 10^3/uL (1.5-8.5); NEUTROPHILS % 75.7 % (36.0-66.0); PLATELET COUNT, AUTOMATED 462 10^3/uL (150-450); RED BLOOD COUNT 4.29 10^6/uL (4.30-6.10); WHITE BLOOD COUNT 8.7 10^3/uL (4.0-10.0)
[2020-11-03 12:05] LABS: ALBUMIN 2.7 GM/DL (3.2-5.2); ALT/SGPT 36 U/L (12-78); BILIRUBIN,TOTAL 0.5 MG/DL (0.2-1.0); BLOOD UREA NITROGEN 16 MG/DL (7-18); C REACTIVE PROTEIN QUANTITATIV 3.32 MG/DL (0.00-0.30); CALCIUM LEVEL 8.3 MG/DL (8.8-10.2); CARBON DIOXIDE LEVEL 27 MEQ/L (21-32); CHLORIDE LEVEL 101 MEQ/L (98-107); CREATININE FOR GFR 0.92 MG/DL (0.70-1.30); GLOMERULAR FILTRATION RATE > 60.0 (>49); GLUCOSE, FASTING 278 MG/DL (70-100); POTASSIUM SERUM 4.2 MEQ/L (3.5-5.1); SODIUM LEVEL 136 MEQ/L (136-145); TOTAL PROTEIN 5.6 GM/DL (6.4-8.2)
[2020-11-03 15:44] LABS: HEMOGLOBIN A1c 8.1 %
== END ==
LOC: M SFHCPLAZ 08:18
PROVIDERS: ATTEND Internal Medicine Infectious Disease
DX: A31.0 Pulmonary mycobacterial infection (principal); E11.622 Type 2 diabetes mellitus with other skin ulcer

== ENCOUNTER → 2020-11-21 | Outpatient (CLI) | payer OTHER ==
--- NOTE | 2020-11-21 11:52 | REP ---
INDICATION: ACUTE INTERTITIAL PNEUMONITIS. COMPARISON: Multiple the latest 09/09/2020 TECHNIQUE: Noncontrast enhanced chest CT using helical TECHNIQUE FINDINGS: There is no significant change in the appearance of the mediastinum or pulmonary robert. No mass or adenopathy has developed. There is a small anterior pericardial effusion. There are no pleural effusions. The imaged upper abdomen and imaged osseous structures are stable. Evaluation of the lung barba shows improvement in the appearance of scattered reticulonodular densities in a tree-in-bud pattern. There is mild cylindrical bronchiectasis status quo. No new abnormal nodules, masses, or opacities have developed. IMPRESSION: Lung field improvement as described above. Other findings as described above. <Electronically signed by Figueroa Carcamo > 11/21/20 [id number]
== END ==
LOC: M RAD 11:23
PROVIDERS: ATTEND Internal Medicine Pulmonary Disease
DX: J84.114 Acute interstitial pneumonitis (principal)

== ENCOUNTER → 2021-01-17 | Outpatient (REF) | payer OTHER ==
[~2021-01-17] MED LIST changes: +BACTDSTA PO; -SULF1TAB93 PO
== END ==
LOC: M SFHCPLAZ 15:30
PROVIDERS: ATTEND Internal Medicine Infectious Disease
DX: R06.02 Shortness of breath (principal)

== ENCOUNTER → 2021-01-25 | Outpatient (CLI) | payer OTHER ==
--- NOTE | 2021-01-25 13:10 | REP ---
INDICATION: ACUTE INTERSTITIAL PNEUMONITIS-US 1ST. COMPARISON: 09/26/2020 latest prior TECHNIQUE: PA and lateral FINDINGS: The superior mediastinal structures are midline. The cardiac silhouette is unremarkable in size, shape, and position. The diaphragmatic surfaces of the lungs are regular, and the costophrenic angles are clear. The pulmonary barba are and hyperexpanded. The imaged osseous structures are unchanged. IMPRESSION: There is no acute cardiopulmonary disease. No significant change compared to the prior exam <Electronically signed by Figueroa Carcamo > 01/25/21 [id number]
--- NOTE | 2021-01-25 16:34 | REP ---
INDICATION: CHRONIC EMBOLISM AND THROMBOSIS OF DEEP VEINS OF ARMS COMPARISON: 05/31/2020. TECHNIQUE: Real time compression and duplex Doppler evaluation of the Bilateral upper extremity deep venous system is performed. FINDINGS: The Bilateral subclavian, jugular, axillary, brachial, and cephalic veins are fully compressible where accessible with transducer pressure, and demonstrate no intraluminal thrombus and normal venous waveforms. There is nonocclusive thrombus in the right mid basilic vein of indeterminate age. IMPRESSION: Nonocclusive thrombus is seen in the right mid basilic vein, of indeterminate age. Otherwise no other evidence of deep vein thrombosis bilaterally. <Electronically signed by Tejas Beckett > 01/25/21 [id number]
== END ==
LOC: M RAD 10:46
PROVIDERS: ATTEND Internal Medicine Pulmonary Disease
DX: I82.722 Chronic embolism and thrombosis of deep veins of left upper extremity (principal)

== ENCOUNTER → 2021-02-02 | Outpatient (CLI) | payer OTHER ==
[2021-02-02 11:15] LABS: BASO # 0.1 10^3/uL (0.0-0.2); EOS # 0.3 10^3/uL (0.0-0.5); EOS % 3.3 % (0.0-3.0); HEMOGLOBIN 11.2 g/dl (13.5-17.5); LYMPH # 0.7 10^3/uL (1.5-5.0); LYMPH % 7.8 % (24.0-44.0); MEAN CORPUSCULAR HEMOGLOBIN 26.1 pg (27.0-33.0); MEAN CORPUSCULAR HGB CONC 30.3 g/dl (32.0-36.5); MEAN CORPUSCULAR VOLUME 86.2 fl (80.0-96.0); MONO # 0.7 10^3/uL (0.0-0.8); NEUTROPHILS # 6.7 10^3/uL (1.5-8.5); NEUTROPHILS % 79.7 % (36.0-66.0); PLATELET COUNT, AUTOMATED 335 10^3/uL (150-450); RED BLOOD COUNT 4.29 10^6/uL (4.30-6.10); WHITE BLOOD COUNT 8.4 10^3/uL (4.0-10.0)
[2021-02-02 11:41] LABS: ALBUMIN 3.4 GM/DL (3.2-5.2); ALT/SGPT 41 U/L (12-78); BILIRUBIN,TOTAL 0.6 MG/DL (0.2-1.0); BLOOD UREA NITROGEN 22 MG/DL (7-18); CALCIUM LEVEL 9.1 MG/DL (8.8-10.2); CARBON DIOXIDE LEVEL 26 MEQ/L (21-32); CHLORIDE LEVEL 108 MEQ/L (98-107); CREATININE FOR GFR 0.84 MG/DL (0.70-1.30); GLOMERULAR FILTRATION RATE > 60.0 (>49); GLUCOSE, FASTING 127 MG/DL (70-100); POTASSIUM SERUM 4.4 MEQ/L (3.5-5.1); SODIUM LEVEL 141 MEQ/L (136-145); TOTAL PROTEIN 6.3 GM/DL (6.4-8.2)
== END ==
LOC: M PLALAB 08:42
PROVIDERS: ATTEND Internal Medicine Infectious Disease
DX: A31.0 Pulmonary mycobacterial infection (principal); Z79.52 Long term (current) use of systemic steroids

== ENCOUNTER → 2021-03-14 | Outpatient (CLI) | payer OTHER ==
--- NOTE | 2021-03-14 16:06 | REP ---
INDICATION: HX OF RT ARM CHRONIC EMBOLISM, SWELLING. COMPARISON: None. TECHNIQUE: Duplex of RUE FINDINGS: No thrombi above or below elbow RUE. Normal exam. Left subclavian vein normal. IMPRESSION: No DVT in RUE. <Electronically signed by Anuarg Arreguin > 03/14/21 [id number]
== END ==
LOC: M RAD 15:25
PROVIDERS: ATTEND Internal Medicine Pulmonary Disease
DX: I82.721 Chronic embolism and thrombosis of deep veins of right upper extremity (principal)

== ENCOUNTER → 2021-05-11 | Outpatient (CLI) | payer OTHER ==
[2021-05-11 14:55] LABS: ALBUMIN 3.3 GM/DL (3.2-5.2); ALT/SGPT 44 U/L (12-78); BILIRUBIN,TOTAL 0.6 MG/DL (0.2-1.0); BLOOD UREA NITROGEN 20 MG/DL (7-18); CALCIUM LEVEL 9.1 MG/DL (8.8-10.2); CARBON DIOXIDE LEVEL 25 MEQ/L (21-32); CHLORIDE LEVEL 107 MEQ/L (98-107); CREATININE FOR GFR 0.84 MG/DL (0.70-1.30); FREE T4 1.22 NG/DL (0.76-1.46); GLOMERULAR FILTRATION RATE > 60.0 (>49); GLUCOSE, FASTING 150 MG/DL (70-100); POTASSIUM SERUM 4.6 MEQ/L (3.5-5.1); SODIUM LEVEL 140 MEQ/L (136-145); TOTAL 25(OH) VITAMIN D 30.7 NG/ML (30.0-100.0); TOTAL PROTEIN 6.2 GM/DL (6.4-8.2); VITAMIN B12 LEVEL 918 PG/ML (247-911)
[2021-05-11 16:27] LABS: HEMOGLOBIN A1c 6.5 %
[2021-05-12 08:11] LABS: LDL DIRECT 60 mg/dL (0-99)
== END ==
LOC: M PLALAB 09:33
PROVIDERS: ATTEND Internal Medicine Endocrinology, Diabetes & Metabolism
DX: E11.65 Type 2 diabetes mellitus with hyperglycemia (principal); E78.2 Mixed hyperlipidemia; E29.1 Testicular hypofunction

== ENCOUNTER → 2021-05-11 | Outpatient (CLI) | payer OTHER ==
[2021-05-11 14:02] LABS: BASO # 0.1 10^3/uL (0.0-0.2); BASO % 0.9 % (0.0-1.0); EOS # 0.1 10^3/uL (0.0-0.5); EOS % 1.6 % (0.0-3.0); HEMATOCRIT 37.1 % (42.0-52.0); HEMOGLOBIN 11.4 g/dl (13.5-17.5); LYMPH # 0.8 10^3/uL (1.5-5.0); MEAN CORPUSCULAR HEMOGLOBIN 25.9 pg (27.0-33.0); MEAN CORPUSCULAR HGB CONC 30.7 g/dl (32.0-36.5); MEAN CORPUSCULAR VOLUME 84.1 fl (80.0-96.0); MONO # 0.5 10^3/uL (0.0-0.8); MONO % 6.9 % (2.0-8.0); NEUTROPHILS # 6.1 10^3/uL (1.5-8.5); NEUTROPHILS % 80.2 % (36.0-66.0); PLATELET COUNT, AUTOMATED 318 10^3/uL (150-450); RED BLOOD COUNT 4.41 10^6/uL (4.30-6.10); WHITE BLOOD COUNT 7.6 10^3/uL (4.0-10.0)
[2021-05-11 14:58] LABS: ALBUMIN 3.1 GM/DL (3.2-5.2); ALT/SGPT 44 U/L (12-78); BILIRUBIN,TOTAL 0.6 MG/DL (0.2-1.0); BLOOD UREA NITROGEN 20 MG/DL (7-18); CALCIUM LEVEL 9.1 MG/DL (8.8-10.2); CARBON DIOXIDE LEVEL 26 MEQ/L (21-32); CHLORIDE LEVEL 108 MEQ/L (98-107); CREATININE FOR GFR 0.86 MG/DL (0.70-1.30); GLOMERULAR FILTRATION RATE > 60.0 (>49); GLUCOSE, FASTING 150 MG/DL (70-100); IMMUNOGLOBULIN G 981 MG/DL (681-1648); IMMUNOGLOBULIN M 89.9 MG/DL (40-230); POTASSIUM SERUM 4.5 MEQ/L (3.5-5.1); SODIUM LEVEL 140 MEQ/L (136-145)
[2021-05-11 15:45] LABS: ERYTHROCYTE SEDIMENTATION RATE 7 mm/hr (0-20)
== END ==
LOC: M PLALAB 09:31
PROVIDERS: ATTEND Internal Medicine Infectious Disease
DX: A31.0 Pulmonary mycobacterial infection (principal)

== ENCOUNTER → 2021-06-02 | Outpatient (CLI) | payer OTHER ==
--- NOTE | 2021-06-02 14:21 | REP ---
INDICATION: MAC INFECTION. COMPARISON: CT chest without IV contrast 11/21/2020. TECHNIQUE: Imaging protocol: Computed tomography of the chest without IV contrast. Contiguous 3 mm thick axial projection images were obtained through the chest. 2D sagittal and coronal reconstructions were performed. Radiation optimization: All CT scans at this facility use at least one of these dose optimization techniques: automated exposure control; mA and/or kV adjustment per patient size (includes targeted exams where dose is matched to clinical indication); or iterative reconstruction. FINDINGS: Lower neck: The thyroid gland is normal. There is no supraclavicular lymphadenopathy. Mediastinum: No abnormal masses or lymphadenopathy. Heart/thoracic aorta: The heart size is normal. There is a small pericardial effusion. There is calcific vascular disease of the thoracic aorta and coronary arteries. Upper abdomen: There is calcific vascular disease of the abdominal aorta. Thoracic esophagus: There is circumferential thickening of the wall of the distal esophagus consistent with esophagitis. Chest wall and axilla: The soft tissues of the chest wall are unremarkable. There is no axillary lymphadenopathy. There is central compression of the superior endplate of T7. There is mild multilevel degenerative disc disease of the thoracic spine with minimal dextroscoliosis. Lung parenchyma: There has been radiographic resolution of the multifocal bronchiolitis seen in the lungs on the prior exam. There is a stable 4 x 2 mm peripheral soft tissue density nodule in the posterior basilar segment of the lower lobe of the right lung (image 112). There is stable pleural-parenchymal scarring in the posterior basilar segment of the lower lobe of the right lung. There is no acute interstitial or alveolar lung disease. There are no pleural effusions. IMPRESSION: 1. Interval resolution of the multifocal bronchiolitis. There is no acute lung disease. 2. Stable soft tissue density nodule in the lower lobe of the right lung. There are no new pulmonary nodules. 3. Other findings as noted, not significantly changed. <Electronically signed by Anurag Ureña > 06/02/21 [id number]
== END ==
LOC: M PLAIMG 13:45
PROVIDERS: ATTEND Internal Medicine Infectious Disease
DX: A31.0 Pulmonary mycobacterial infection (principal)

== ENCOUNTER → 2021-07-19 | Outpatient (CLI) | payer OTHER ==
[2021-07-19 13:46] LABS: CREATININE, URINE 72.8 MG/DL; MALB URINE SIEMENS 11.4 MG/L; MAU/CREAT RATIO 15.6 MCG/MG (0.0-30.0)
== END ==
LOC: M PLALAB 11:16
PROVIDERS: ATTEND Nurse Practitioner Family
DX: E11.65 Type 2 diabetes mellitus with hyperglycemia (principal); Z79.4 Long term (current) use of insulin; E29.1 Testicular hypofunction

== ENCOUNTER → 2021-07-19 | Outpatient (CLI) | payer OTHER | LOC: M PLALAB 11:14 | PROVIDERS: ATTEND Internal Medicine Infectious Disease | DX: J45.909 Unspecified asthma, uncomplicated (principal) ==

== ENCOUNTER → 2021-09-07 | Outpatient (CLI) | payer OTHER ==
[~2021-09-07] MED LIST changes: -CEFD1CAP8 PO; +CEFD300C41 PO
== END ==
LOC: M PLALAB 10:42
PROVIDERS: ATTEND Internal Medicine Infectious Disease
DX: Z51.81 Encounter for therapeutic drug level monitoring (principal); Z79.52 Long term (current) use of systemic steroids

== ENCOUNTER → 2021-12-01 | Outpatient (CLI) | payer OTHER ==
[~2021-12-01] MED LIST changes: -D31000TA2 PO; +VITA100093 PO
== END ==
LOC: M WHC 12:32
PROVIDERS: ATTEND Physician Assistant
DX: M79.89 Other specified soft tissue disorders (principal); Z86.718 Personal history of other venous thrombosis and embolism

== ENCOUNTER → 2022-02-12 | Outpatient (REF) | payer OTHER | LOC: M LAB REF 16:23 | PROVIDERS: ATTEND Physician Assistant | DX: J45.50 Severe persistent asthma, uncomplicated (principal) ==

== ENCOUNTER → 2022-04-24 | Outpatient (CLI) | payer OTHER ==
[~2022-04-24] MED LIST changes: -ASMA220A INH; +MOME220A INH
[2022-04-24 17:48] LABS: BLOOD UREA NITROGEN 16 MG/DL (7-18); CALCIUM LEVEL 8.5 MG/DL (8.8-10.2); CARBON DIOXIDE LEVEL 27 MEQ/L (21-32); CHLORIDE LEVEL 104 MEQ/L (98-107); CREATININE FOR GFR 0.77 MG/DL (0.70-1.30); GLOMERULAR FILTRATION RATE > 60.0 (>49); GLUCOSE, FASTING 219 MG/DL (70-100); POTASSIUM SERUM 4.6 MEQ/L (3.5-5.1); SODIUM LEVEL 136 MEQ/L (136-145)
== END ==
LOC: M PLALAB 14:44
PROVIDERS: ATTEND Ophthalmology Retina Specialist
DX: T85.29XS Other mechanical complication of intraocular lens, sequela (principal)

== ENCOUNTER → 2022-04-26 | Outpatient (CLI) | payer OTHER ==
[2022-04-26 14:01] LABS: BASO # 0.1 10^3/uL (0.0-0.2); BASO % 0.8 % (0.0-1.0); EOS # 0.1 10^3/uL (0.0-0.5); EOS % 1.5 % (0.0-3.0); HEMATOCRIT 40.3 % (42.0-52.0); HEMOGLOBIN 12.1 g/dl (13.5-17.5); MEAN CORPUSCULAR HEMOGLOBIN 26.1 pg (27.0-33.0); MONO # 0.7 10^3/uL (0.0-0.8); MONO % 9.1 % (2.0-8.0); NEUTROPHILS % 75.1 % (36.0-66.0); PLATELET COUNT, AUTOMATED 324 10^3/uL (150-450); RED BLOOD COUNT 4.63 10^6/uL (4.30-6.10)
[2022-04-26 14:50] LABS: CHOLESTEROL RISK RATIO 2.452 (<5)
[2022-04-26 15:30] LABS: TOTAL 25(OH) VITAMIN D 37.8 NG/ML (30.0-100.0)
[2022-04-27 18:08] LABS: TESTOSTERONE FREE (DIRECT) 3.4 pg/mL (6.6-18.1)
== END ==
LOC: M PLALAB 10:49
DX: Z01.818 Encounter for other preprocedural examination (principal); E55.9 Vitamin D deficiency, unspecified; E78.5 Hyperlipidemia, unspecified

== ENCOUNTER → 2022-09-07 | Outpatient (REF) | payer OTHER | LOC: M SFHCDERM 17:02 | PROVIDERS: ATTEND Nurse Practitioner Family | DX: C44.42 Squamous cell carcinoma of skin of scalp and neck (principal) ==

== ENCOUNTER → 2022-10-17 | Outpatient (CLI) | payer OTHER ==
[~2022-10-17] MED LIST changes: +MONT-5 PO; -SING10TA32 PO
[2022-10-17 14:33] LABS: CREATININE, URINE 182.1 MG/DL; MAU/CREAT RATIO 5.4 MCG/MG (0.0-30.0)
[2022-10-17 14:35] LABS: THYROID STIMULATING HORMONE 2.193 uIU/ML (0.55-4.78)
[2022-10-17 14:36] LABS: FREE T4 1.2 NG/DL (0.89-1.76)
[2022-10-17 14:41] LABS: HEMOGLOBIN A1c 8.5 % (4.0-6.0)
== END ==
LOC: M PLALAB 09:54
PROVIDERS: ATTEND Nurse Practitioner Family
DX: E11.65 Type 2 diabetes mellitus with hyperglycemia (principal)

== ENCOUNTER → 2022-10-23 | Outpatient (REF) | payer OTHER | LOC: M LAB REF 17:47 | PROVIDERS: ATTEND Internal Medicine Pulmonary Disease | DX: J47.9 Bronchiectasis, uncomplicated (principal) ==

== ENCOUNTER → 2023-03-12 | Outpatient (CLI) | payer OTHER ==
[~2023-03-12] MED LIST changes: +[UNRECOGNIZED DRUG - CODE] IV; -[UNRECOGNIZED DRUG - CODE] IV
== END ==
LOC: M PLAIMG 08:05
PROVIDERS: ATTEND Nurse Practitioner Family
DX: M25.522 Pain in left elbow (principal); R60.0 Localized edema

== ENCOUNTER → 2023-07-08 | Outpatient (REF) | payer MEDICARE, OTHER ==
[~2023-07-08] MED LIST changes: +CEFD1CAP9 PO; -CEFD300C41 PO; +GLIP5TAB17 PO; -GLIP5TAB8 PO
== END ==
LOC: M LAB REF 12:42
PROVIDERS: ATTEND Physician Assistant
DX: J45.50 Severe persistent asthma, uncomplicated (principal); J47.9 Bronchiectasis, uncomplicated

== ENCOUNTER → 2023-07-19 | Outpatient (REF) | payer MEDICARE, OTHER | LOC: M SFHCDERM 12:01 | PROVIDERS: ATTEND Nurse Practitioner Family | DX: L82.0 Inflamed seborrheic keratosis (principal) ==

== ENCOUNTER → 2023-09-25 | Outpatient (REF) | payer MEDICARE, OTHER | LOC: M LAB REF 13:03 | PROVIDERS: ATTEND Internal Medicine Pulmonary Disease | DX: J45.50 Severe persistent asthma, uncomplicated (principal); J47.9 Bronchiectasis, uncomplicated ==

== ENCOUNTER → 2023-10-01 | Outpatient (CLI) | payer MEDICARE, OTHER | LOC: M PLAIMG 09:28 | PROVIDERS: ATTEND Internal Medicine Pulmonary Disease | DX: J45.50 Severe persistent asthma, uncomplicated (principal); J47.9 Bronchiectasis, uncomplicated; Z79.52 Long term (current) use of systemic steroids ==

== ENCOUNTER → 2023-10-08 | Outpatient (REF) | payer MEDICARE, OTHER | LOC: M LAB REF 17:03 | PROVIDERS: ATTEND Internal Medicine Pulmonary Disease | DX: J47.9 Bronchiectasis, uncomplicated (principal); R89.1 Abnormal level of hormones in specimens from other organs, systems and tissues; B37.9 Candidiasis, unspecified ==

== ENCOUNTER → 2023-10-09 | Outpatient (CLI) | payer MEDICARE, OTHER ==
[2023-10-09 14:27] LABS: BASO % 0.6 % (0.0-1.0); EOS % 0.3 % (0.0-3.0); HEMATOCRIT 36.7 % (42.0-52.0); LYMPH # 0.5 10^3/uL (1.5-5.0); LYMPH % 7.8 % (24.0-44.0); MEAN CORPUSCULAR HEMOGLOBIN 23.9 pg (27.0-33.0); MEAN CORPUSCULAR VOLUME 79.6 fl (80.0-96.0); MONO # 0.4 10^3/uL (0.0-0.8); MONO % 6.9 % (2.0-8.0); NEUTROPHILS # 5.4 10^3/uL (1.5-8.5); NEUTROPHILS % 84.1 % (36.0-66.0); PLATELET COUNT, AUTOMATED 335 10^3/uL (150-450); RED BLOOD COUNT 4.61 10^6/uL (4.30-6.10); WHITE BLOOD COUNT 6.4 10^3/uL (4.0-10.0)
[2023-10-09 14:50] LABS: ALBUMIN 3.2 G/DL (3.2-5.2); ALKALINE PHOSPHATASE 58 U/L (46-116); ALT/SGPT 40 U/L (7.0-40); AST/SGOT 19 U/L (<34); BLOOD UREA NITROGEN 21 MG/DL (9-23); CALCIUM LEVEL 8.7 MG/DL (8.3-10.6); CARBON DIOXIDE LEVEL 27 MMOL/L (20-31); CHLORIDE LEVEL 103 MMOL/L (98-107); CHOLESTEROL LEVEL 114 MG/DL (<200); CHOLESTEROL RISK RATIO 2.53 (<5); FREE T4 1.04 NG/DL (0.89-1.76); GLOMERULAR FILTRATION RATE > 60.0 (>49); GLUCOSE, FASTING 190 MG/DL (74-106); POTASSIUM SERUM 4.6 MMOL/L (3.5-5.1); PSA SCREENING 0.72 NG/ML (< 4.00); SODIUM LEVEL 138 MMOL/L (136-145); TESTOSTERONE 662 NG/DL (241-827); THYROID STIMULATING HORMONE 2.481 uIU/ML (0.55-4.78); TOTAL 25(OH) VITAMIN D 42.4 NG/ML (20.0-100.0); TOTAL PROTEIN 5.8 G/DL (5.7-8.2); TRIGLYCERIDES LEVEL 70 MG/DL (<150)
[2023-10-09 14:56] LABS: CREATININE, URINE 44.8 MG/DL
[2023-10-09 14:57] LABS: MALB URINE SIEMENS < 3.0 MG/L; MAU/CREAT RATIO 6.6 MCG/MG (0.0-30.0)
== END ==
LOC: M PLALAB 10:09
PROVIDERS: ATTEND Nurse Practitioner Family
DX: E11.65 Type 2 diabetes mellitus with hyperglycemia (principal); Z79.4 Long term (current) use of insulin; Z12.5 Encounter for screening for malignant neoplasm of prostate
CPT/HCPCS: 36415; 80053; 80061; 82043; 82306; 84403; 84439; 84443; 85025; G0103

== ENCOUNTER → 2023-12-11 | Outpatient (REF) | payer MEDICARE, OTHER | LOC: M LAB REF 16:46 | PROVIDERS: ATTEND Internal Medicine Pulmonary Disease | DX: J47.9 Bronchiectasis, uncomplicated (principal) ==

== ENCOUNTER → 2024-01-02 | Outpatient (CLI) | payer MEDICARE, OTHER | LOC: M PLAIMG 13:03 | PROVIDERS: ATTEND Internal Medicine Pulmonary Disease | DX: R05.9 Cough, unspecified (principal); J47.9 Bronchiectasis, uncomplicated; J98.11 Atelectasis; J98.4 Other disorders of lung ==

== ENCOUNTER → 2024-01-03 | Outpatient (REF) | payer MEDICARE, OTHER ==
[2024-01-03 14:41] LABS: BLOOD UREA NITROGEN 17 MG/DL (9-23); CREATININE FOR GFR 0.62 MG/DL (0.70-1.30); GLOMERULAR FILTRATION RATE > 60.0 (>49)
== END ==
LOC: M LAB REF 12:15
PROVIDERS: ATTEND Internal Medicine Pulmonary Disease
DX: J47.9 Bronchiectasis, uncomplicated (principal); R05.9 Cough, unspecified; J45.50 Severe persistent asthma, uncomplicated

== ENCOUNTER → 2024-02-04 | Outpatient (REF) | payer MEDICARE, OTHER | LOC: M LAB REF 17:04 | PROVIDERS: ATTEND Internal Medicine Pulmonary Disease | DX: J45.50 Severe persistent asthma, uncomplicated (principal) ==

== ENCOUNTER 2024-02-07 14:54 | Outpatient (CLI) | payer MEDICARE, OTHER ==
[~2024-02-07] VITALS: Ht 182.9 cm; Wt 63.6 kg
[2024-02-07 15:50] VITALS: BP 124/73; O2SAT 96
[2024-02-07] MEDS: CEFEPIME HCL 2 GM in D5W MINI-BAG PLUS 50 ML IV ONE (15:58)
[2024-02-07 16:55] VITALS: BP 128/79; O2SAT 96
== END 2024-02-07 16:55 ==
LOC: M INFU 14:54
PROVIDERS: ATTEND Internal Medicine Pulmonary Disease
DX: J15.1 Pneumonia due to Pseudomonas (principal); J47.9 Bronchiectasis, uncomplicated; Z88.1 Allergy status to other antibiotic agents; Z88.8 Allergy status to other drugs, medicaments and biological substances
CPT/HCPCS: 96365; 96372; J0692

== ENCOUNTER 2024-02-08 08:29 | Outpatient (CLI) | payer MEDICARE, OTHER ==
[~2024-02-08] VITALS: Ht 182.9 cm; Wt 64.0 kg
[2024-02-08 08:45] VITALS: BP 126/78; O2SAT 97
[2024-02-08] MEDS: CEFEPIME HCL 2 GM in D5W MINI-BAG PLUS 50 ML IV SCH (09:08)
== END 2024-02-08 10:09 | disposition home or self-care (01) ==
LOC: M INFU 08:29 → M OPCLI4PV 08:29 → M MSPAV 08:37 → M INFU 10:09
PROVIDERS: ATTEND Internal Medicine Pulmonary Disease
DX: J15.1 Pneumonia due to Pseudomonas (principal); J47.9 Bronchiectasis, uncomplicated; Z88.1 Allergy status to other antibiotic agents; Z88.8 Allergy status to other drugs, medicaments and biological substances
CPT/HCPCS: 96365; J0692

== ENCOUNTER 2024-02-08 14:44 | Outpatient (CLI) | payer MEDICARE, OTHER ==
[~2024-02-08] VITALS: Ht 182.9 cm; Wt 64.0 kg
[2024-02-08] MEDS: CEFEPIME HCL 2 GM in D5W MINI-BAG PLUS 50 ML IV ONE (15:54)
== END 2024-02-08 16:51 | disposition home or self-care (01) ==
LOC: M OPCLI4PV 14:44 → M MSPAV 15:37 → M OPCLI4PV 16:51
PROVIDERS: ATTEND Internal Medicine Pulmonary Disease
DX: J15.1 Pneumonia due to Pseudomonas (principal); J47.9 Bronchiectasis, uncomplicated

== ENCOUNTER 2024-02-09 11:01 | Outpatient (CLI) | payer MEDICARE, OTHER ==
[~2024-02-09] VITALS: Ht 182.9 cm; Wt 70.0 kg
[2024-02-09 12:00] VITALS: BP 119/73; O2SAT 98
[2024-02-09] MEDS: CEFEPIME HCL 2 GM in D5W MINI-BAG PLUS 50 ML IV SCH (12:02)
== END 2024-02-09 12:57 | disposition home or self-care (01) ==
LOC: M OPCLI4PV 11:01 → M MSPAV 11:17 → M OPCLI4PV 12:57
PROVIDERS: ATTEND Internal Medicine Pulmonary Disease
DX: J15.1 Pneumonia due to Pseudomonas (principal); J47.9 Bronchiectasis, uncomplicated; Z88.1 Allergy status to other antibiotic agents; Z88.8 Allergy status to other drugs, medicaments and biological substances
CPT/HCPCS: 96365; J0692

== ENCOUNTER 2024-02-09 16:13 | Outpatient (CLI) | payer MEDICARE, OTHER ==
[~2024-02-09] VITALS: Ht 182.9 cm; Wt 70.0 kg
[2024-02-09] MEDS: CEFEPIME HCL 2 GM in D5W MINI-BAG PLUS 50 ML IV ONE (16:32)
== END 2024-02-09 17:15 | disposition home or self-care (01) ==
LOC: M OPCLI4PV 16:13 → M MSPAV 16:16 → M OPCLI4PV 17:15
PROVIDERS: ATTEND Internal Medicine Pulmonary Disease
DX: J15.1 Pneumonia due to Pseudomonas (principal); J47.9 Bronchiectasis, uncomplicated; Z88.1 Allergy status to other antibiotic agents; Z88.8 Allergy status to other drugs, medicaments and biological substances

== ENCOUNTER 2024-02-10 06:57 | Outpatient (CLI) | payer MEDICARE, OTHER ==
[~2024-02-10] VITALS: Ht 182.9 cm; Wt 64.0 kg
[2024-02-10 07:10] VITALS: BP 131/73; O2SAT 99
[2024-02-10] MEDS: CEFEPIME HCL 2 GM in D5W MINI-BAG PLUS 50 ML IV SCH (07:32)
== END 2024-02-10 08:00 ==
LOC: M INFU 06:57
PROVIDERS: ATTEND Internal Medicine Pulmonary Disease
DX: J15.1 Pneumonia due to Pseudomonas (principal); J47.9 Bronchiectasis, uncomplicated; Z88.1 Allergy status to other antibiotic agents; Z88.8 Allergy status to other drugs, medicaments and biological substances
CPT/HCPCS: 96365; J0692

== ENCOUNTER 2024-02-10 16:05 | Outpatient (CLI) | payer MEDICARE, OTHER ==
[~2024-02-10 16:05] MED LIST changes: +CEFEPIME HCL 2 GM in D5W MINI-BAG PLUS 50 ML IV SCH
[2024-02-10] MEDS: CEFEPIME HCL 2 GM in D5W MINI-BAG PLUS 50 ML IV SCH (16:23)
== END 2024-02-10 17:03 ==
LOC: M INFU 16:05
PROVIDERS: ATTEND Internal Medicine Pulmonary Disease
DX: J15.1 Pneumonia due to Pseudomonas (principal); J47.9 Bronchiectasis, uncomplicated; Z88.1 Allergy status to other antibiotic agents; Z88.8 Allergy status to other drugs, medicaments and biological substances

== ENCOUNTER 2024-02-11 07:00 | Outpatient (CLI) | payer MEDICARE, OTHER ==
[2024-02-11] MEDS: CEFEPIME HCL 2 GM in D5W MINI-BAG PLUS 50 ML IV ONE (07:18)
[2024-02-11 07:35] VITALS: BP 123/72; O2SAT 97
[2024-02-11 07:50] VITALS: BP 125/71; O2SAT 98
== END 2024-02-11 07:50 ==
LOC: M INFU 07:00
PROVIDERS: ATTEND Internal Medicine Pulmonary Disease
DX: J15.1 Pneumonia due to Pseudomonas (principal); J47.9 Bronchiectasis, uncomplicated; Z88.1 Allergy status to other antibiotic agents; Z88.8 Allergy status to other drugs, medicaments and biological substances
CPT/HCPCS: 96365; J0692

== ENCOUNTER 2024-02-11 09:15 | Outpatient (CLI) | payer MEDICARE, OTHER ==
[2024-02-11] MEDS: CEFEPIME HCL 2 GM in D5W MINI-BAG PLUS 50 ML IV ONE (16:35)
[2024-02-11 16:41] VITALS: BP 140/82; O2SAT 98
[2024-02-11 17:07] VITALS: BP 127/80; O2SAT 95
== END 2024-02-11 17:07 ==
LOC: M INFU 09:15
PROVIDERS: ATTEND Internal Medicine Pulmonary Disease
DX: J15.1 Pneumonia due to Pseudomonas (principal); J47.9 Bronchiectasis, uncomplicated; Z88.1 Allergy status to other antibiotic agents; Z88.8 Allergy status to other drugs, medicaments and biological substances
CPT/HCPCS: 96365; J0692

== ENCOUNTER → 2024-02-11 | Outpatient (CLI) | payer MEDICARE, OTHER ==
[~2024-02-11] MED LIST changes: -CEFEPIME HCL 2 GM in D5W MINI-BAG PLUS 50 ML IV SCH
== END ==
LOC: M IRPRO 08:12
PROVIDERS: ATTEND Internal Medicine Pulmonary Disease
DX: A31.9 Mycobacterial infection, unspecified (principal); I82.721 Chronic embolism and thrombosis of deep veins of right upper extremity; J45.50 Severe persistent asthma, uncomplicated; Z53.9 Procedure and treatment not carried out, unspecified reason

== ENCOUNTER 2024-02-12 07:10 | Outpatient (CLI) | payer MEDICARE, OTHER ==
[~2024-02-12] VITALS: Ht 185.4 cm; Wt 63.6 kg
[2024-02-12 07:20] VITALS: BP 134/77; O2SAT 98
[2024-02-12] MEDS: CEFEPIME HCL 2 GM in D5W MINI-BAG PLUS 50 ML IV ONE (07:24)
== END 2024-02-12 07:55 ==
LOC: M INFU 07:10
PROVIDERS: ATTEND Internal Medicine Pulmonary Disease
DX: J15.1 Pneumonia due to Pseudomonas (principal); J47.9 Bronchiectasis, uncomplicated; Z88.1 Allergy status to other antibiotic agents; Z88.8 Allergy status to other drugs, medicaments and biological substances
CPT/HCPCS: 96365; J0692

== ENCOUNTER 2024-02-12 16:03 | Outpatient (CLI) | payer MEDICARE, OTHER ==
[2024-02-12 16:00] VITALS: BP 111/70; O2SAT 96
[2024-02-12] MEDS: CEFEPIME HCL 2 GM in D5W MINI-BAG PLUS 50 ML IV ONE (16:22)
== END 2024-02-12 17:00 ==
LOC: M INFU 16:03
PROVIDERS: ATTEND Internal Medicine Pulmonary Disease
DX: J15.1 Pneumonia due to Pseudomonas (principal); J47.9 Bronchiectasis, uncomplicated; Z88.1 Allergy status to other antibiotic agents; Z88.8 Allergy status to other drugs, medicaments and biological substances

== ENCOUNTER 2024-02-13 07:05 | Outpatient (CLI) | payer MEDICARE, OTHER ==
[2024-02-13 07:05] VITALS: BP 130/73; O2SAT 96
[2024-02-13] MEDS: CEFEPIME HCL 2 GM in D5W MINI-BAG PLUS 50 ML IV ONE (07:07)
== END 2024-02-13 07:40 ==
LOC: M INFU 07:05
PROVIDERS: ATTEND Internal Medicine Pulmonary Disease
DX: J15.1 Pneumonia due to Pseudomonas (principal); J47.9 Bronchiectasis, uncomplicated; Z88.0 Allergy status to penicillin; Z88.1 Allergy status to other antibiotic agents; Z88.8 Allergy status to other drugs, medicaments and biological substances
CPT/HCPCS: 96365; J0692

== ENCOUNTER 2024-02-13 16:25 | Outpatient (CLI) | payer MEDICARE, OTHER ==
[2024-02-13 16:21] VITALS: BP 136/73; O2SAT 97
[2024-02-13] MEDS: CEFEPIME HCL 2 GM in D5W MINI-BAG PLUS 50 ML IV ONE (16:33)
== END 2024-02-13 17:10 ==
LOC: M INFU 16:25
PROVIDERS: ATTEND Internal Medicine Pulmonary Disease
DX: J15.1 Pneumonia due to Pseudomonas (principal); J47.9 Bronchiectasis, uncomplicated; Z88.1 Allergy status to other antibiotic agents; Z88.8 Allergy status to other drugs, medicaments and biological substances

== ENCOUNTER 2024-02-14 07:00 | Outpatient (CLI) | payer MEDICARE, OTHER ==
[2024-02-14 07:00] VITALS: BP 129/77; O2SAT 98
[2024-02-14] MEDS: CEFEPIME HCL 2 GM in D5W MINI-BAG PLUS 50 ML IV ONE (07:15)
[2024-02-14 07:55] VITALS: BP 132/73; O2SAT 96
== END 2024-02-14 07:55 ==
LOC: M INFU 07:00
PROVIDERS: ATTEND Internal Medicine Pulmonary Disease
DX: J47.9 Bronchiectasis, uncomplicated (principal); J15.1 Pneumonia due to Pseudomonas; Z88.1 Allergy status to other antibiotic agents; Z88.8 Allergy status to other drugs, medicaments and biological substances
CPT/HCPCS: 96365; J0692

== ENCOUNTER 2024-02-14 16:30 | Outpatient (CLI) | payer MEDICARE, OTHER ==
[~2024-02-14] VITALS: Ht 182.9 cm; Wt 64.0 kg
[2024-02-14 16:30] VITALS: BP 116/72; O2SAT 95
[2024-02-14] MEDS: CEFEPIME HCL 2 GM in D5W MINI-BAG PLUS 50 ML IV ONE (16:30)
[2024-02-14 17:05] VITALS: BP 114/68; O2SAT 96
== END 2024-02-14 17:05 ==
LOC: M INFU 16:30
PROVIDERS: ATTEND Internal Medicine Pulmonary Disease
DX: J15.1 Pneumonia due to Pseudomonas (principal); J47.9 Bronchiectasis, uncomplicated; Z88.1 Allergy status to other antibiotic agents; Z88.8 Allergy status to other drugs, medicaments and biological substances
CPT/HCPCS: 96365; J0692

== ENCOUNTER → 2024-02-15 | Outpatient (CLI) | payer MEDICARE, OTHER ==
[2024-02-15 15:58] VITALS: BP 128/88; O2SAT 96
[2024-02-15] MEDS: CEFEPIME HCL 2 GM in D5W MINI-BAG PLUS 50 ML IV ONE (16:11)
[2024-02-15 16:55] VITALS: BP 118/63; O2SAT 97
== END ==
LOC: M INFU 08:22
PROVIDERS: ATTEND Internal Medicine Pulmonary Disease
DX: J47.9 Bronchiectasis, uncomplicated (principal); J15.1 Pneumonia due to Pseudomonas; Z88.1 Allergy status to other antibiotic agents; Z88.8 Allergy status to other drugs, medicaments and biological substances
CPT/HCPCS: 96365; J0692

== ENCOUNTER → 2024-02-15 | Outpatient (CLI) | payer MEDICARE, OTHER ==
[2024-02-15 08:20] VITALS: BP 120/72; O2SAT 98
[2024-02-15] MEDS: CEFEPIME HCL 2 GM in D5W MINI-BAG PLUS 50 ML IV ONE (08:52)
[2024-02-15 09:19] VITALS: BP 115/76; O2SAT 98
== END ==
LOC: M INFU 08:51
PROVIDERS: ATTEND Internal Medicine Pulmonary Disease
DX: J15.1 Pneumonia due to Pseudomonas (principal); J47.9 Bronchiectasis, uncomplicated; Z88.1 Allergy status to other antibiotic agents; Z88.8 Allergy status to other drugs, medicaments and biological substances

== ENCOUNTER → 2024-02-16 | Outpatient (CLI) | payer MEDICARE, OTHER ==
[2024-02-16 08:08] VITALS: BP 124/72; O2SAT 98
[2024-02-16] MEDS: CEFEPIME HCL 2 GM in D5W MINI-BAG PLUS 50 ML IV ONE (08:19)
[2024-02-16 08:57] VITALS: BP 120/68; O2SAT 98
== END ==
LOC: M INFU 08:04
PROVIDERS: ATTEND Internal Medicine Pulmonary Disease
DX: J15.1 Pneumonia due to Pseudomonas (principal); J47.9 Bronchiectasis, uncomplicated; Z88.1 Allergy status to other antibiotic agents; Z88.8 Allergy status to other drugs, medicaments and biological substances

== ENCOUNTER → 2024-02-16 | Outpatient (CLI) | payer MEDICARE, OTHER ==
[2024-02-16 16:00] VITALS: BP 119/73; O2SAT 97
[2024-02-16] MEDS: CEFEPIME HCL 2 GM in D5W MINI-BAG PLUS 50 ML IV ONE (16:11)
== END ==
LOC: M INFU 15:50
PROVIDERS: ATTEND Internal Medicine Pulmonary Disease
DX: J15.1 Pneumonia due to Pseudomonas (principal); J47.9 Bronchiectasis, uncomplicated; Z88.1 Allergy status to other antibiotic agents; Z88.8 Allergy status to other drugs, medicaments and biological substances
CPT/HCPCS: 96365; J0692

== ENCOUNTER 2024-02-17 06:59 | Outpatient (CLI) | payer MEDICARE, OTHER ==
[2024-02-17 07:15] VITALS: BP 126/70; O2SAT 93
[2024-02-17] MEDS: CEFEPIME HCL 2 GM in D5W MINI-BAG PLUS 50 ML IV ONE (07:28)
[2024-02-17 08:05] VITALS: BP 122/71; O2SAT 97
== END 2024-02-17 08:05 ==
LOC: M INFU 06:59
PROVIDERS: ATTEND Internal Medicine Pulmonary Disease
DX: J15.1 Pneumonia due to Pseudomonas (principal); J47.9 Bronchiectasis, uncomplicated; Z88.1 Allergy status to other antibiotic agents; Z88.8 Allergy status to other drugs, medicaments and biological substances
CPT/HCPCS: 96365; J0692

== ENCOUNTER → 2024-02-28 | Outpatient (REF) | payer MEDICARE, OTHER | LOC: M SFHCDERM 17:22 | PROVIDERS: ATTEND Nurse Practitioner Family | DX: D04.62 Carcinoma in situ of skin of left upper limb, including shoulder (principal); L57.8 Other skin changes due to chronic exposure to nonionizing radiation ==

== ENCOUNTER → 2024-03-05 | Outpatient (REF) | payer MEDICARE, OTHER | LOC: M LAB REF 17:06 | PROVIDERS: ATTEND Internal Medicine Critical Care Medicine | DX: J47.9 Bronchiectasis, uncomplicated (principal) ==

== ENCOUNTER → 2024-04-17 | Outpatient (REF) | payer MEDICARE, OTHER | LOC: M SFHCDERM 16:00 | PROVIDERS: ATTEND Physician Assistant | DX: D04.62 Carcinoma in situ of skin of left upper limb, including shoulder (principal); L57.8 Other skin changes due to chronic exposure to nonionizing radiation; L90.5 Scar conditions and fibrosis of skin ==

== ENCOUNTER → 2024-04-27 | Outpatient (REF) | payer MEDICARE, OTHER | LOC: M LAB REF 16:52 | PROVIDERS: ATTEND Internal Medicine Pulmonary Disease | DX: J47.9 Bronchiectasis, uncomplicated (principal) ==

== ENCOUNTER → 2024-04-27 | Outpatient (REF) | payer MEDICARE, OTHER | LOC: M SFHCDERM 17:19 | PROVIDERS: ATTEND Physician Assistant | DX: Z48.02 Encounter for removal of sutures (principal); J47.9 Bronchiectasis, uncomplicated ==

== ENCOUNTER → 2024-05-13 | Outpatient (REF) | payer MEDICARE, OTHER | LOC: M LAB REF 12:44 | PROVIDERS: ATTEND Internal Medicine Pulmonary Disease | DX: J45.50 Severe persistent asthma, uncomplicated (principal) ==

== ENCOUNTER → 2024-05-14 | Outpatient (CLI) | payer MEDICARE, OTHER | LOC: M PLAIMG 14:27 | PROVIDERS: ATTEND Internal Medicine Pulmonary Disease | DX: J47.9 Bronchiectasis, uncomplicated (principal); Z79.52 Long term (current) use of systemic steroids; D82.8 Immunodeficiency associated with other specified major defects; R91.1 Solitary pulmonary nodule; I31.39 Other pericardial effusion (noninflammatory); I25.10 Atherosclerotic heart disease of native coronary artery without angina pectoris; M48.54XA Collapsed vertebra, not elsewhere classified, thoracic region, initial encounter for fracture ==

== ENCOUNTER 2024-06-01 06:57 | Outpatient (CLI) | payer MEDICARE, OTHER ==
[~2024-06-01] VITALS: Ht 185.4 cm; Wt 69.0 kg
[2024-06-01 07:10] VITALS: BP 125/77; O2SAT 100
[2024-06-01] MEDS: CEFEPIME HCL 2 GM in DEXTROSE 5% (D5W) ADV/MINI-BAG 50 ML IV ONE (07:17)
[2024-06-01 07:50] VITALS: BP 122/76; O2SAT 98
[2024-06-01] MEDS ORDERED: FARX1TAB3 PO (17:27)
== END 2024-06-01 07:55 ==
LOC: M INFU 06:57
PROVIDERS: ATTEND Internal Medicine Pulmonary Disease
DX: J15.1 Pneumonia due to Pseudomonas (principal); J47.9 Bronchiectasis, uncomplicated; Z88.1 Allergy status to other antibiotic agents; Z88.8 Allergy status to other drugs, medicaments and biological substances
CPT/HCPCS: 96365; J0692

== ENCOUNTER 2024-06-01 16:56 | Outpatient (CLI) | payer MEDICARE, OTHER ==
[2024-06-01 17:15] VITALS: BP 138/78; O2SAT 96
[2024-06-01] MEDS: CEFEPIME HCL 2 GM in DEXTROSE 5% (D5W) ADV/MINI-BAG 50 ML IV ONE (17:21)
[2024-06-01] MEDS ORDERED: FARX1TAB3 PO (17:27)
[2024-06-01 17:57] VITALS: BP 124/76; O2SAT 97
== END 2024-06-01 17:54 | disposition home or self-care (01) ==
LOC: M INFU 16:56
PROVIDERS: ATTEND Internal Medicine Pulmonary Disease
DX: J15.1 Pneumonia due to Pseudomonas (principal); J47.9 Bronchiectasis, uncomplicated; Z88.1 Allergy status to other antibiotic agents; Z88.8 Allergy status to other drugs, medicaments and biological substances

== ENCOUNTER 2024-06-02 07:00 | Outpatient (CLI) | payer MEDICARE, OTHER ==
[~2024-06-02 07:00] MED LIST changes: +CEFEPIME HCL 2 GM in DEXTROSE 5% (D5W) ADV/MINI-BAG 50 ML IV SCH; +FARX1TAB3 PO
[2024-06-02] MEDS: CEFEPIME HCL 2 GM in DEXTROSE 5% (D5W) ADV/MINI-BAG 50 ML IV ONE (07:09)
[2024-06-02 07:28] VITALS: BP 126/74; O2SAT 99
== END 2024-06-02 07:43 | disposition home or self-care (01) ==
LOC: M INFU 07:00
PROVIDERS: ATTEND Internal Medicine Pulmonary Disease
DX: J47.9 Bronchiectasis, uncomplicated (principal); J15.1 Pneumonia due to Pseudomonas; Z88.1 Allergy status to other antibiotic agents; Z88.8 Allergy status to other drugs, medicaments and biological substances
CPT/HCPCS: 96365; J0692

== ENCOUNTER 2024-06-02 16:55 | Outpatient (CLI) | payer MEDICARE, OTHER ==
[~2024-06-02 16:55] MED LIST changes: -CEFEPIME HCL 2 GM in DEXTROSE 5% (D5W) ADV/MINI-BAG 50 ML IV SCH
[2024-06-02] MEDS: CEFEPIME HCL 2 GM in DEXTROSE 5% (D5W) ADV/MINI-BAG 50 ML IV ONE (17:03)
[2024-06-02 17:07] VITALS: BP 117/66; O2SAT 98
== END 2024-06-02 17:35 | disposition home or self-care (01) ==
LOC: M INFU 16:55
PROVIDERS: ATTEND Internal Medicine Pulmonary Disease
DX: J47.9 Bronchiectasis, uncomplicated (principal); J15.1 Pneumonia due to Pseudomonas; Z88.1 Allergy status to other antibiotic agents; Z88.8 Allergy status to other drugs, medicaments and biological substances

== ENCOUNTER 2024-06-03 06:55 | Outpatient (CLI) | payer MEDICARE, OTHER ==
[2024-06-03 06:55] VITALS: BP 140/74; O2SAT 98
[2024-06-03] MEDS: CEFEPIME HCL 2 GM in DEXTROSE 5% (D5W) ADV/MINI-BAG 50 ML IV ONE (07:10)
[2024-06-03 07:41] VITALS: BP 110/74; O2SAT 96
== END 2024-06-03 07:45 ==
LOC: M INFU 06:55
PROVIDERS: ATTEND Internal Medicine Pulmonary Disease
DX: J15.1 Pneumonia due to Pseudomonas (principal); J47.9 Bronchiectasis, uncomplicated; Z88.1 Allergy status to other antibiotic agents; Z88.8 Allergy status to other drugs, medicaments and biological substances

== ENCOUNTER 2024-06-03 17:15 | Outpatient (CLI) | payer MEDICARE, OTHER ==
[~2024-06-03 17:15] MED LIST changes: +CEFEPIME HCL 2 GM in DEXTROSE 5% (D5W) ADV/MINI-BAG 50 ML IV ONE
[2024-06-03] MEDS: CEFEPIME HCL 2 GM in DEXTROSE 5% (D5W) ADV/MINI-BAG 50 ML IV ONE (17:15)
[2024-06-03 17:41] VITALS: BP 121/78; O2SAT 97
== END 2024-06-03 17:50 ==
LOC: M INFU 17:15
PROVIDERS: ATTEND Internal Medicine Pulmonary Disease
DX: J15.1 Pneumonia due to Pseudomonas (principal); J47.9 Bronchiectasis, uncomplicated; Z88.1 Allergy status to other antibiotic agents; Z88.8 Allergy status to other drugs, medicaments and biological substances
CPT/HCPCS: 96365; J0692

== ENCOUNTER 2024-06-04 07:09 | Outpatient (CLI) | payer MEDICARE, OTHER ==
[2024-06-04 07:30] VITALS: BP 124/75; O2SAT 97
[2024-06-04] MEDS: CEFEPIME HCL 2 GM in DEXTROSE 5% (D5W) ADV/MINI-BAG 50 ML IV ONE (07:43)
[2024-06-04 08:20] VITALS: BP 129/72; O2SAT 97
== END 2024-06-04 08:00 ==
LOC: M INFU 07:09
PROVIDERS: ATTEND Internal Medicine Pulmonary Disease
DX: J15.1 Pneumonia due to Pseudomonas (principal); J47.9 Bronchiectasis, uncomplicated; E11.9 Type 2 diabetes mellitus without complications; D51.8 Other vitamin B12 deficiency anemias; E55.9 Vitamin D deficiency, unspecified; E78.5 Hyperlipidemia, unspecified; I10 Essential (primary) hypertension; Z88.1 Allergy status to other antibiotic agents; Z88.8 Allergy status to other drugs, medicaments and biological substances
CPT/HCPCS: 36415; 80053; 80061; 82306; 82607; 82746; 85027; 96365; J0692

== ENCOUNTER 2024-06-04 16:40 | Outpatient (CLI) | payer MEDICARE, OTHER ==
[~2024-06-04] VITALS: Ht 185.4 cm; Wt 72.5 kg
[2024-06-04] MEDS: CEFEPIME HCL 2 GM in DEXTROSE 5% (D5W) ADV/MINI-BAG 50 ML IV ONE (16:46)
[2024-06-04 17:40] VITALS: BP 117/79; O2SAT 99
== END 2024-06-04 17:40 ==
LOC: M INFU 16:40
PROVIDERS: ATTEND Internal Medicine Pulmonary Disease
DX: J15.1 Pneumonia due to Pseudomonas (principal); J47.9 Bronchiectasis, uncomplicated; Z88.1 Allergy status to other antibiotic agents; Z88.8 Allergy status to other drugs, medicaments and biological substances

== ENCOUNTER → 2024-06-04 | Outpatient (CLI) | payer MEDICARE, OTHER ==
[~2024-06-04] MED LIST changes: -CEFEPIME HCL 2 GM in DEXTROSE 5% (D5W) ADV/MINI-BAG 50 ML IV ONE
[2024-06-04 09:33] LABS: HEMATOCRIT 37.5 % (42.0-52.0); MEAN CORPUSCULAR HEMOGLOBIN 22.2 pg (27.0-33.0); MEAN CORPUSCULAR HGB CONC 29.3 g/dl (32.0-36.5); MEAN CORPUSCULAR VOLUME 75.6 fl (80.0-96.0); PLATELET COUNT, AUTOMATED 357 10^3/uL (150-450); RED BLOOD COUNT 4.96 10^6/uL (4.30-6.10); WHITE BLOOD COUNT 6.4 10^3/uL (4.0-10.0)
[2024-06-04 10:02] LABS: ALKALINE PHOSPHATASE 61 U/L (40-129); ALT/SGPT 53 U/L (7.0-40); AST/SGOT 27 U/L (<34); BILIRUBIN,TOTAL 1.2 MG/DL (0.3-1.2); BLOOD UREA NITROGEN 19 MG/DL (9-23); CALCIUM LEVEL 8.8 MG/DL (8.3-10.6); CARBON DIOXIDE LEVEL 29 MMOL/L (20-31); CHLORIDE LEVEL 109 MMOL/L (98-107); CHOLESTEROL LEVEL 129 MG/DL (<200); CHOLESTEROL RISK RATIO 2.76 (<5); CREATININE FOR GFR 0.63 MG/DL (0.70-1.30); GLOMERULAR FILTRATION RATE > 60.0 (>49); GLUCOSE, FASTING 136 MG/DL (74-106); HDL CHOLESTEROL 46.6 MG/DL (>40); LDL CHOLESTEROL 65.2 MG/DL (<100); NON-HDL-C 82.4 MG/DL; POTASSIUM SERUM 4.1 MMOL/L (3.5-5.1); SODIUM LEVEL 140 MMOL/L (136-145); TOTAL PROTEIN 6.1 G/DL (5.7-8.2); TRIGLYCERIDES LEVEL 86 MG/DL (<150)
[2024-06-04 10:05] LABS: FOLATE 12.3 NG/ML (>5.4); TOTAL 25(OH) VITAMIN D 53.3 NG/ML (20.0-100.0)
[2024-06-04 10:06] LABS: VITAMIN B12 LEVEL 506 PG/ML (211-911)
== END ==
LOC: M LAB 07:14
PROVIDERS: ATTEND Physician Assistant
DX: I10 Essential (primary) hypertension (principal); E78.5 Hyperlipidemia, unspecified; E55.9 Vitamin D deficiency, unspecified; D51.8 Other vitamin B12 deficiency anemias; E11.9 Type 2 diabetes mellitus without complications

== ENCOUNTER 2024-06-05 17:05 | Outpatient (CLI) | payer MEDICARE, OTHER ==
[2024-06-05 17:05] VITALS: BP 142/87; O2SAT 97
[~2024-06-05 17:05] MED LIST changes: +LEVA15HF2 INH; -LEVAINH INH
[2024-06-05] MEDS: CEFEPIME HCL 2 GM in DEXTROSE 5% (D5W) ADV/MINI-BAG 50 ML IV ONE (17:07)
[2024-06-05 17:47] VITALS: BP 132/80; O2SAT 97
[2024-06-06] MEDS: CEFEPIME HCL 2 GM in DEXTROSE 5% (D5W) ADV/MINI-BAG 50 ML IV ONE (08:35)
[2024-06-06 08:59] VITALS: BP 115/74; O2SAT 97
== END 2024-06-06 09:00 ==
LOC: M INFU 17:05
PROVIDERS: ATTEND Internal Medicine Pulmonary Disease
DX: J15.1 Pneumonia due to Pseudomonas (principal); J47.9 Bronchiectasis, uncomplicated; Z88.1 Allergy status to other antibiotic agents; Z88.8 Allergy status to other drugs, medicaments and biological substances
CPT/HCPCS: 96365; J0692

== ENCOUNTER 2024-06-06 08:01 | Outpatient (CLI) | payer MEDICARE, OTHER ==
[2024-06-05] MEDS: CEFEPIME HCL 2 GM in DEXTROSE 5% (D5W) ADV/MINI-BAG 50 ML IV ONE (07:43)
[2024-06-05 08:20] VITALS: BP 126/72
[~2024-06-06 08:01] MED LIST changes: -LEVA15HF2 INH; +LEVAINH INH
[2024-06-06] MEDS: CEFEPIME HCL 2 GM in DEXTROSE 5% (D5W) ADV/MINI-BAG 50 ML IV ONE (16:05)
[2024-06-06 16:40] VITALS: BP 106/62; O2SAT 97
== END 2024-06-06 08:20 | disposition home or self-care (01) ==
LOC: M INFU 08:01
PROVIDERS: ATTEND Internal Medicine Pulmonary Disease
DX: J15.1 Pneumonia due to Pseudomonas (principal); J47.9 Bronchiectasis, uncomplicated; Z88.1 Allergy status to other antibiotic agents; Z88.8 Allergy status to other drugs, medicaments and biological substances

== ENCOUNTER → 2024-06-06 | Outpatient (CLI) | payer MEDICARE, OTHER ==
[2024-06-06] MEDS: CEFEPIME HCL 2 GM in DEXTROSE 5% (D5W) ADV/MINI-BAG 50 ML IV ONE (16:05)
== END ==
LOC: M INFU 16:00
PROVIDERS: ATTEND Internal Medicine Pulmonary Disease
DX: J15.1 Pneumonia due to Pseudomonas (principal); J47.9 Bronchiectasis, uncomplicated; Z88.1 Allergy status to other antibiotic agents; Z88.8 Allergy status to other drugs, medicaments and biological substances
CPT/HCPCS: 96365; J0692

== ENCOUNTER → 2024-06-06 | Outpatient (CLI) | payer MEDICARE, OTHER ==
[2024-06-06] MEDS: CEFEPIME HCL 2 GM in DEXTROSE 5% (D5W) ADV/MINI-BAG 50 ML IV ONE (08:00)
== END ==
LOC: M INFU 07:59
PROVIDERS: ATTEND Internal Medicine Pulmonary Disease
DX: J15.1 Pneumonia due to Pseudomonas (principal); J47.9 Bronchiectasis, uncomplicated; Z88.1 Allergy status to other antibiotic agents; Z88.8 Allergy status to other drugs, medicaments and biological substances
CPT/HCPCS: 96365; J0692

== ENCOUNTER 2024-06-07 08:01 | Outpatient (CLI) | payer MEDICARE, OTHER ==
[~2024-06-07] VITALS: Ht 185.4 cm; Wt 72.5 kg
[2024-06-07] MEDS: CEFEPIME HCL 2 GM in DEXTROSE 5% (D5W) ADV/MINI-BAG 50 ML IV ONE (08:05)
[2024-06-07 08:37] VITALS: BP 111/57; O2SAT 95
== END 2024-06-07 08:40 | disposition home or self-care (01) ==
LOC: M INFU 08:01
PROVIDERS: ATTEND Internal Medicine Pulmonary Disease
DX: J15.1 Pneumonia due to Pseudomonas (principal); J47.9 Bronchiectasis, uncomplicated; Z88.1 Allergy status to other antibiotic agents; Z88.8 Allergy status to other drugs, medicaments and biological substances

== ENCOUNTER 2024-06-07 16:01 | Outpatient (CLI) | payer MEDICARE, OTHER ==
[~2024-06-07] VITALS: Ht 185.4 cm; Wt 65.9 kg
[2024-06-07] MEDS: CEFEPIME HCL 2 GM in DEXTROSE 5% (D5W) ADV/MINI-BAG 50 ML IV ONE (16:08)
[2024-06-07 16:40] VITALS: BP 127/68; O2SAT 97
== END 2024-06-07 16:45 | disposition home or self-care (01) ==
LOC: M INFU 16:01
PROVIDERS: ATTEND Internal Medicine Pulmonary Disease
DX: J15.1 Pneumonia due to Pseudomonas (principal); J47.9 Bronchiectasis, uncomplicated; Z88.1 Allergy status to other antibiotic agents; Z88.8 Allergy status to other drugs, medicaments and biological substances
CPT/HCPCS: 96365; J0692

== ENCOUNTER 2024-06-08 07:30 | Outpatient (CLI) | payer MEDICARE, OTHER ==
[~2024-06-08] VITALS: Ht 185.4 cm; Wt 66.0 kg
[2024-06-08 07:35] VITALS: BP 113/67; O2SAT 99
[2024-06-08] MEDS: CEFEPIME HCL 2 GM in DEXTROSE 5% (D5W) ADV/MINI-BAG 50 ML IV ONE (07:37)
[2024-06-08 08:20] VITALS: BP 115/67; O2SAT 96
== END 2024-06-08 08:21 ==
LOC: M INFU 07:30
PROVIDERS: ATTEND Internal Medicine Pulmonary Disease
DX: J47.9 Bronchiectasis, uncomplicated (principal); J15.1 Pneumonia due to Pseudomonas; Z88.0 Allergy status to penicillin; Z88.8 Allergy status to other drugs, medicaments and biological substances
CPT/HCPCS: 96365; J0692

== ENCOUNTER 2024-06-08 16:45 | Outpatient (CLI) | payer MEDICARE, OTHER ==
[~2024-06-08 16:45] MED LIST changes: +LEVA15HF2 INH; -LEVAINH INH
[2024-06-08] MEDS: CEFEPIME HCL 2 GM in DEXTROSE 5% (D5W) ADV/MINI-BAG 50 ML IV ONE (16:47)
[2024-06-08 16:48] VITALS: BP 130/80; O2SAT 97
== END 2024-06-08 17:18 ==
LOC: M INFU 16:45
PROVIDERS: ATTEND Internal Medicine Pulmonary Disease
DX: J47.9 Bronchiectasis, uncomplicated (principal); J15.1 Pneumonia due to Pseudomonas; Z88.1 Allergy status to other antibiotic agents; Z88.8 Allergy status to other drugs, medicaments and biological substances
CPT/HCPCS: 96365; J0692

== ENCOUNTER 2024-06-09 06:55 | Outpatient (CLI) | payer MEDICARE, OTHER ==
[2024-06-09] MEDS: CEFEPIME HCL 2 GM in DEXTROSE 5% (D5W) ADV/MINI-BAG 50 ML IV ONE (17:09)
[2024-06-09 17:10] VITALS: BP 125/78; O2SAT 99
== END 2024-06-09 07:40 ==
LOC: M INFU 06:55
PROVIDERS: ATTEND Internal Medicine Pulmonary Disease
DX: J47.9 Bronchiectasis, uncomplicated (principal); J15.1 Pneumonia due to Pseudomonas; Z88.1 Allergy status to other antibiotic agents; Z88.8 Allergy status to other drugs, medicaments and biological substances
CPT/HCPCS: 96365; J0692

== ENCOUNTER 2024-06-09 17:10 | Outpatient (CLI) | payer MEDICARE, OTHER ==
[~2024-06-09] VITALS: Ht 182.9 cm; Wt 66.0 kg
[2024-06-09 06:55] VITALS: BP 109/66; O2SAT 97
[2024-06-09] MEDS: CEFEPIME HCL 2 GM in DEXTROSE 5% (D5W) ADV/MINI-BAG 50 ML IV ONE (07:05)
== END 2024-06-09 17:45 ==
LOC: M INFU 17:10
PROVIDERS: ATTEND Internal Medicine Pulmonary Disease
DX: J47.9 Bronchiectasis, uncomplicated (principal); J15.1 Pneumonia due to Pseudomonas; Z88.1 Allergy status to other antibiotic agents; Z88.8 Allergy status to other drugs, medicaments and biological substances

== ENCOUNTER 2024-06-10 07:05 | Outpatient (CLI) | payer MEDICARE, OTHER ==
[2024-06-10 07:05] VITALS: BP 125/70; O2SAT 99
[2024-06-10] MEDS: CEFEPIME HCL 2 GM in DEXTROSE 5% (D5W) ADV/MINI-BAG 50 ML IV ONE (07:17)
== END 2024-06-10 08:00 ==
LOC: M INFU 07:05
PROVIDERS: ATTEND Internal Medicine Pulmonary Disease
DX: J47.9 Bronchiectasis, uncomplicated (principal); J15.1 Pneumonia due to Pseudomonas; Z88.1 Allergy status to other antibiotic agents; Z88.8 Allergy status to other drugs, medicaments and biological substances
CPT/HCPCS: 96365; J0692

== ENCOUNTER 2024-06-10 16:50 | Outpatient (CLI) | payer MEDICARE, OTHER ==
[2024-06-10] MEDS: CEFEPIME HCL 2 GM in DEXTROSE 5% (D5W) ADV/MINI-BAG 50 ML IV ONE (16:55)
[2024-06-10 17:30] VITALS: BP 137/84; O2SAT 96
== END 2024-06-10 17:30 ==
LOC: M INFU 16:50
PROVIDERS: ATTEND Internal Medicine Pulmonary Disease
DX: J47.9 Bronchiectasis, uncomplicated (principal); J15.1 Pneumonia due to Pseudomonas; Z88.1 Allergy status to other antibiotic agents; Z88.8 Allergy status to other drugs, medicaments and biological substances
CPT/HCPCS: 96365; J0692

== ENCOUNTER → 2024-08-14 | Outpatient (REF) | payer MEDICARE, OTHER | LOC: M LAB REF 17:17 | PROVIDERS: ATTEND Physician Assistant | DX: J45.50 Severe persistent asthma, uncomplicated (principal); J47.9 Bronchiectasis, uncomplicated ==

== ENCOUNTER → 2024-09-01 | Outpatient (REF) | payer MEDICARE, OTHER | LOC: M LAB REF 14:58 | PROVIDERS: ATTEND Internal Medicine Pulmonary Disease | DX: J45.50 Severe persistent asthma, uncomplicated (principal) ==

== ENCOUNTER → 2024-09-28 | Outpatient (REF) | payer MEDICARE, OTHER ==
[2024-09-29 15:03] LABS: MUMPS VIRUS IgG ANTIBODY > 300.00 AU/mL (>10.99); RUBEOLA IgG ANTIBODY > 300.00 AU/mL (>16.49)
== END ==
LOC: M LAB REF 12:51
PROVIDERS: ATTEND Internal Medicine Pulmonary Disease
DX: D82.8 Immunodeficiency associated with other specified major defects (principal); Z79.52 Long term (current) use of systemic steroids; J45.50 Severe persistent asthma, uncomplicated

== ENCOUNTER → 2025-03-29 | Outpatient (CLI) | payer MEDICARE, OTHER | LOC: M RAD 16:27 | PROVIDERS: ATTEND Internal Medicine Pulmonary Disease | DX: J47.9 Bronchiectasis, uncomplicated (principal); J98.11 Atelectasis ==

== ENCOUNTER → 2025-04-14 | Outpatient (CLI) | payer MEDICARE, OTHER | LOC: M PLAIMG 14:23 | PROVIDERS: ATTEND Internal Medicine Pulmonary Disease | DX: J47.9 Bronchiectasis, uncomplicated (principal); A31.9 Mycobacterial infection, unspecified; J45.50 Severe persistent asthma, uncomplicated ==

== ENCOUNTER → 2025-06-11 | Outpatient (CLI) | payer MEDICARE, OTHER ==
[2025-06-11 10:53] LABS: BASO # 0.0 10^3/uL (0.0-0.2); BASO % 0.7 % (0.0-1.0); EOS # 0.1 10^3/uL (0.0-0.5); EOS % 2.2 % (0.0-3.0); LYMPH # 1.3 10^3/uL (1.5-5.0); LYMPH % 21.5 % (24.0-44.0); MONO # 0.8 10^3/uL (0.0-0.8); MONO % 13.1 % (2.0-8.0); NEUTROPHILS # 3.6 10^3/uL (1.5-8.5); NEUTROPHILS % 61.8 % (36.0-66.0); PLATELET COUNT, AUTOMATED 331 10^3/uL (150-450)
[2025-06-11 11:00] LABS: ALT/SGPT 39 U/L (7.0-40); AST/SGOT 21 U/L (<34); CALCIUM LEVEL 8.3 MG/DL (8.3-10.6); CARBON DIOXIDE LEVEL 28 MMOL/L (20-31); CHLORIDE LEVEL 103 MMOL/L (98-107); CHOLESTEROL LEVEL 130 MG/DL (<200); CHOLESTEROL RISK RATIO 2.47 (<5); CREATININE FOR GFR 0.62 MG/DL (0.70-1.30); GLOMERULAR FILTRATION RATE > 90.0 (>49); LDL CHOLESTEROL 64.3 MG/DL (<100); NON-HDL-C 77.5 MG/DL; POTASSIUM SERUM 3.9 MMOL/L (3.5-5.1); SODIUM LEVEL 141 MMOL/L (136-145); TRIGLYCERIDES LEVEL 66 MG/DL (<150)
[2025-06-11 11:02] LABS: ESTIMATED AVERAGE GLUCOSE 209.0 MG/DL (60-110)
[2025-06-11 11:02] LABS: FREE T4 1.19 NG/DL (0.89-1.76); TOTAL 25(OH) VITAMIN D 38.9 NG/ML (20.0-100.0)
== END ==
LOC: M PLALAB 07:36
PROVIDERS: ATTEND Physician Assistant
DX: I25.10 Atherosclerotic heart disease of native coronary artery without angina pectoris (principal); I50.32 Chronic diastolic (congestive) heart failure; E11.9 Type 2 diabetes mellitus without complications; E55.9 Vitamin D deficiency, unspecified; I49.3 Ventricular premature depolarization